=== PATIENT | female | born 1935 | race Caucasian/White ===

== ENCOUNTER → 2017-02-03 | Outpatient (CLI) | payer MEDICARE ==
[~2017-02-03] MED LIST: ASP81CT PO; Amlodipine Besylate PO; Atorvastatin Calcium PO; CEPH500C PO; CHOL100061 PO; FRS325T PO; GLIM2TAB PO; LACT20SO2 PO; LISI1TAB8 PO; MAGN250T7 PO; METF-472 PO; METF500T8 PO; METO25TA2 PO; MTF500T PO; MULT-974 PO; PHEN100T26 PO; PROP80CA4 PO; SENN1TAB66 PO; [UNRECOGNIZED DRUG - OTHER] PO; [UNRECOGNIZED DRUG - REMARK] PO; lisinopril PO
--- NOTE | 2017-02-05 10:10 | ECHOCARDIOGRAPHY REPORT ---
DATE OF SERVICE: 02/03/2017 PROCEDURE: Two-dimensional echocardiogram. INDICATIONS: Coronary artery disease, hypertension. REFERRING PHYSICIAN: Dr. Norton. MEASUREMENTS: LVID end diastolic 5.2. IVS thickness 0.9. LVPW thickness 0.9. Left atrial diameter 4.5. Ejection fraction 45-50%. FINDINGS: 1. Technical quality is good. 2. The left ventricle is prominent with mild diffuse left ventricle hypokinesia. Systolic function is reduced. Estimated ejection fraction 45-50%. 3. The left atrium is dilated. No clot or thrombus were seen. 4. The right atrium is normal in size. The right ventricle is normal in size. No clot or thrombus were seen within the right side. 5. The mitral valve evaluation showed mitral annular calcification with severe mitral regurgitation noted by color Doppler flow. No mitral valve prolapse. Significant deterioration compared to the previous study of 06/2016. 6. The aortic valve is heavily calcified. Doppler across the aortic valve estimated the peak gradient of 14 mmHg. Mean gradient of 6 mmHg. Calculated valve area of 1.3 sq cm which did not change significant compared to the study of 06/2016. 7. The tricuspid valve is normal in morphology with mild tricuspid regurgitation noted by color Doppler flow. Doppler across tricuspid valve estimated pulmonary artery pressure of 48 plus right atrial pressure. 8. The pulmonic valve is functioning normally with mild pulmonary regurgitation. 9. No pericardial effusion. CONCLUSION: 1. Normal left ventricular size with mild diffuse left ventricle hypokinesia. Estimated ejection fraction of 45-50%. 2. Severe mitral regurgitation, significant deterioration compared to study of 06/2016. 3. Moderate aortic valve stenosis. Calcified aortic valve. 4. Moderate tricuspid regurgitation. 5. Severe pulmonary hypertension with estimated pulmonary artery pressure of 55-60 mmHg, significant deterioration compared the study of 06/2016. 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
== END ==
LOC: CARD 07:31
PROVIDERS: ATTEND Physician Assistant
DX: I25.10 Atherosclerotic heart disease of native coronary artery without angina pectoris (principal); E11.9 Type 2 diabetes mellitus without complications; I10 Essential (primary) hypertension; I70.1 Atherosclerosis of renal artery; R09.89 Other specified symptoms and signs involving the circulatory and respiratory systems
CPT/HCPCS: 93306

== ENCOUNTER 2017-04-22 11:18 | Inpatient (IN) | payer MEDICARE ==
[~2017-04-22] VITALS: Ht 165.1 cm; Wt 67.4 kg
[2017-04-22] VITALS (8 sets, daily range): BP systolic 117–174; BP diastolic 81–113
[2017-04-22] MEDS ORDERED: ASPIRIN 81 MG CHEW (CHILDREN'S ASA) PO ONE (11:30)
[2017-04-22 11:53] LABS: BASOPHILS % (AUTO) 0 % (0-10); EOSINOPHILS # (AUTO) 0.1 10^3/uL (0.0-0.3); EOSINOPHILS % (AUTO) 2 % (0-10); LYMPHOCYTES # (AUTO) 2.1 X 10^3 (1.0-4.0); LYMPHOCYTES % (AUTO) 27 % (12-44); MEAN CORPUSCULAR HEMOGLOBIN 30 PG (25-34); MEAN CORPUSCULAR HGB CONC 33 G/DL (32-36); MEAN CORPUSCULAR VOLUME 92 FL (80-99); MEAN PLATELET VOLUME 11.8 FL (7.4-10.4); MONOCYTES # (AUTO) 0.6 X 10^3 (0.0-1.0); MONOCYTES % (AUTO) 7 % (0-12); NEUTROPHILS # (AUTO) 5.1 X 10^3 (1.8-7.8); NEUTROPHILS % (AUTO) 64 % (42-75); PLATELET COUNT 181 10^3/uL (130-400); RED BLOOD COUNT 4.29 10^6/uL (4.35-5.85); RED CELL DISTRIBUTION WIDTH 13.3 % (10.0-14.5); WHITE BLOOD COUNT 7.9 10^3/uL (4.3-11.0)
--- NOTE | 2017-04-22 11:57 | ED Dyspnea ---
General Stated Complaint: SOB,DIZZINESS Source of Information: Patient, Family ([facility] AND [id number]) History of Present Illness Time Seen by Provider: 11:20 Initial Comments PT ARRIVES VIA POV FROM HOME C/O ONGOING SHORTNESS OF BREATH FOR OVER A MONTH, PROGRESSIVELY GETTING WORSE NO CHEST PAIN OR PAIN WITH BREATHING--THEN LATER STATES HER CHEST FEELS TIGHT- LIKE HER BRA IS TOO TIGHT + ORTHOPNEA HAS SOME SWELLING IN LEGS/ FEET--CHRONIC PROBLEM--STATES THEY USED TO BE ALOT WORSE NO CALF PAIN NO PALPITATIONS NO SWEATS NO NAUSEA/VOMITING HAS HAD MILD DIZZINESS NO FEVER NO COUGH OR URI SYMPTOMS C/O DIZZINESS SYMPTOMS ARE NO DIFFERENT TODAY HAS NOT SOUGHT CARE UNTIL TODAY PT DID FLY TO [place] AND WAS THERE FOR 30 DAYS, BEGAN SHORTNESS OF BREATH SOMETIME AFTER ARRIVING THERE. PT RETURNED / FLEW BACK HOME 04/11/17 PT WITH HISTORY OF CAD AND HAD 4 VESSEL CABG IN 2013 FAMILY REPORT THAT SHE HAD SIMILAR SYMPTOMS PRIOR TO CABG PT WITH LONG HISTORY OF NON-COMPLIANCE WITH MEDICATIONS PT IS ALSO DIABETIC AND NEVER CHECKS HER BLOOD SUGAR, AND ONLY TAKES METFORMIN IF SHE EATS SOMETHING SWEET, AND THEN DOES NOT ALWAYS TAKE IT EVEN THEN PT IS SUPPOSED TO TAKE ASPIRIN, HEART MEDICATIONS AND OTHER MEDICATIONS, BUT SHE MOST OFTEN DOES NOT TAKE THEM PCP: DR. DENG STEAM TABLE ASSOCIATE: DR. LATHAM Allergies and Home Medications Allergies Coded Allergies: No Known Drug Allergies (Unverified , 04/15/13) Home Medications Aspirin 81 Mg Chew, 81 MG PO DAILY, #30 Prescribed by: JAZZY LOBATO on 12/05/14 1131 Cholecalciferol (Vitamin D3) 1,000 Unit Tablet, 1,000 UNIT PO DAILY, (Reported) Ferrous Sulfate 325 Mg Tab, 325 MG PO BID WITH MEALS, #60 Prescribed by: JAZZY LOBATO on 12/05/14 1131 Glimepiride 2 Mg Tablet, 2 MG PO DAILY, (Reported) Magnesium Oxide 250 Mg Tablet, 250 MG PO DAILY, (Reported) Metformin Hcl 500 Mg Tab.sr.24h, 500 MG PO BID, (Reported) Metoprolol Tartrate 25 Mg Tablet, 25 MG PO BID, #60 Prescribed by: JAZZY LOBATO on 12/05/14 1131 Multivitamin 1 Each Tablet, 1 TAB PO DAILY, (Reported) Sennosides/Docusate Sodium 1 Each Tablet, 5 TAB PO HS, (Reported) [Amlodipine Besylate] 5 MG TAB, 5 MG PO DAILY, #30 Prescribed by: JAZZY LOBATO on 12/05/14 1131 [Atorvastatin Calcium] 20 MG TABLET, 40 MG PO HS, #30 Prescribed by: JAZZY LOBATO on 12/05/14 1131 Constitutional: see HPI, dizziness, No fever EENTM: no symptoms reported Respiratory: see HPI, dyspnea on exertion, orthopnea, short of breath, No wheezing Cardiovascular: see HPI, chest pain, edema, No palpitations, No syncope, vascular heart diseas Gastrointestinal: no symptoms reported, No abdominal pain, No nausea, No vomiting Genitourinary: no symptoms reported Musculoskeletal: no symptoms reported Skin: no symptoms reported Psychiatric/Neurological: Anxiety Endocrine: No Symptoms Reported Hematologic/Lymphatic: No Symptoms Reported Past Luzjeme-Reehzw-Seuhft Hx Immunizations Up To Date Tetanus Booster (TDap): Unknown Date of Pneumonia Vaccine: Sep 04, 2013 Date of Influenza Vaccine: Nov 17, 2014 Surgeries HX Surgeries: Yes (ankle surgery; colonoscopy in 2009, CARDIAC CATH WITH 4 VESSEL CABG 2013; CATARACTS) Surgeries: Cardiac, CABG, Eye Surgery, Hysterectomy, Orthopedic, Tonsillectomy Respiratory Hx Respiratory Disorders: Yes Respiratory Disorders: Pneumonia Cardiovascular Hx Cardiac Disorders: Yes (RENAL ARTERY STENOSIS, CAROTID BRUIT; 4 VESSEL CABG. 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 Genitourinary Hx Genitourinary Disorders: Yes (Renal stent) Genitourinary Disorders: UTI-Chronic Gastrointestinal Hx Gastrointestinal Disorders: Yes Gastrointestinal Disorders: Gastroesophageal Reflux, Chronic Constipation Musculoskeletal Hx Musculoskeletal Disorders: No Endocrine Hx Endocrine Disorders: Yes (NON-COMPLIANT WITH MEDICATIONS AND NEVER CHECKS BLOOD GLUCOSE) Endocrine Disorders: Diabetes, Non-Insulin dep HEENT HX ENT Disorders: Yes (Cataract surgery ) HEENT Disorders: Cataract Cancer Hx Cancer: No Psychosocial Hx Psychiatric Problems: Yes Behavioral Health Disorders: Anxiety Integumentary HX Skin/Integumentary Disorder: No Blood Transfusions Hx Blood Disorders: No Family Medical History Family Medial History: Colon cancer 19 FATHER G8 BROTHER Diabetes mellitus 19 FATHER Hypertension 19 MOTHER Myocardial infarction 19 MOTHER Physical Exam Vital Signs Vital Sign - Last 12Hours 04/22/17 04/22/17 12:06 15:40 Temp 98.1 Pulse 102 Resp 20 B/P (MAP) 168/113 Pulse Ox 98 O2 Delivery Room Air Capillary Refill : General Appearance: No Apparent Distress, WD/WN, 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, 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) HEENT: PERRL/EOMI Neck: Full Range of Motion, Non Tender, Supple, Carotid Bruit (ON RIGHT), JVD ( MILD) Respiratory: Normal Breath Sounds, No Accessory Muscle Use, No Respiratory Distress Cardiovascular: Normal Peripheral Pulses, Systolic Murmur (3/6), Irregularly Irregular Gastrointestinal: Normal Bowel Sounds, No Organomegaly, No Pulsatile Mass, Non Tender, Soft Extremity: Normal Capillary Refill, Non Tender, No Calf Tenderness, Pedal Edema (1+ BILATERALLY) Neurologic/Psychiatric: Alert, Oriented x3 (MILD MEMORY IMPAIRMENT), No Motor/ Sensory Deficits, Normal Mood/Affect, 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 Norm as Tested Skin: Normal Color, Warm/Dry Progress/Results/Core Measures Results/Orders Lab Results Laboratory Tests Test 04/22/17 11:40 04/22/17 12:55 Range/Units White Blood Count 7.9 4.3-11.0 10^3/uL Red Blood Count 4.29 L 4.35-5.85 10^6/uL Hemoglobin 13.0 11.5-16.0 G/DL Hematocrit 39 35-52 % Mean Corpuscular Volume 92 80-99 FL Mean Corpuscular Hemoglobin 30 25-34 PG Mean Corpuscular Hemoglobin Concent 33 32-36 G/DL Red Cell Distribution Width 13.3 10.0-14.5 % Platelet Count 181 130-400 10^3/uL Mean Platelet Volume 11.8 H 7.4-10.4 FL Neutrophils (%) (Auto) 64 42-75 % Lymphocytes (%) (Auto) 27 12-44 % Monocytes (%) (Auto) 7 0-12 % Eosinophils (%) (Auto) 2 0-10 % Basophils (%) (Auto) 0 0-10 % Neutrophils # (Auto) 5.1 1.8-7.8 X 10^3 Lymphocytes # (Auto) 2.1 1.0-4.0 X 10^3 Monocytes # (Auto) 0.6 0.0-1.0 X 10^3 Eosinophils # (Auto) 0.1 0.0-0.3 10^3/uL Basophils # (Auto) 0.0 0.0-0.1 10^3/uL Prothrombin Time 13.9 12.2-14.7 SEC INR Comment 1.1 0.8-1.4 Activated Partial Thromboplast Time 28 24-35 SEC Sodium Level 137 135-145 MMOL/L Potassium Level 4.5 3.6-5.0 MMOL/L Chloride Level 103 98-107 MMOL/L Carbon Dioxide Level 24 21-32 MMOL/L Anion Gap 10 5-14 MMOL/L Blood Urea Nitrogen 20 H 7-18 MG/DL Creatinine 1.19 0.60-1.30 MG/DL Estimat Glomerular Filtration Rate 43 BUN/Creatinine Ratio 17 Glucose Level 167 H 70-105 MG/DL Calcium Level 9.2 8.5-10.1 MG/DL Magnesium Level 1.9 1.8-2.4 MG/DL Total Bilirubin 0.9 0.1-1.0 MG/DL Aspartate Amino Transf (AST/SGOT) 91 H 5-34 U/L Alanine Aminotransferase (ALT/SGPT) 166 H 0-55 U/L Alkaline Phosphatase 85 40-136 U/L Total Creatine Kinase 70 29-168 U/L Creatine Kinase MB 2.2 <6.6 NG/ML Troponin I < 0.30 <0.30 NG/ML B-Type Natriuretic Peptide 1064.0 H <100.0 PG/ML Total Protein 6.6 6.4-8.2 GM/DL Albumin 3.9 3.2-4.5 GM/DL Amylase Level 37 25-125 U/L Lipase 27 8-78 U/L TSH [place] Testing 2.17 0.35-4.94 UIU/ML My Orders Orders - ALBA HERNANDEZ DO Amylase (04/22/17 11:30) Cbc With Automated Diff (04/22/17 11:30) Comprehensive Metabolic Panel (04/22/17 11:30) Creatine Kinase (04/22/17 11:30) Creatine Kinase Mb (04/22/17 11:30) Lipase (04/22/17 11:30) Partial Thromboplastin Time (04/22/17 11:30) Protime With Inr (04/22/17 11:30) Troponin I (04/22/17 11:30) Chest 1 View, Ap/Pa Only (04/22/17 11:30) O2 (04/22/17 11:30) Ekg Tracing (04/22/17 11:30) Aspirin Chewable Tablet (Baby Aspirin Ch (04/22/17 11:30) BNP (04/22/17 11:30) Monitor-Rhythm Ecg Trace Only (04/22/17 11:30) Magnesium (04/22/17 11:30) Nitroglycerin Ointment (Nitrobid Ointme (04/22/17 12:00) Enoxaparin Injection (Lovenox Injection) (04/22/17 12:15) Thyroid Analyzer (04/22/17 12:29) Ct Angio Chest W (04/22/17 13:50) Saline Lock/Iv-Start (04/22/17 13:50) Ns Iv 1000 Ml (Sodium Chloride 0.9%) (04/22/17 13:50) Nitroglycerin Ointment (Nitrobid Ointme (04/22/17 14:00) Diltiazem Injection (Cardizem Injection) (04/22/17 14:00) Iohexol Injection (Omnipaque 350 Mg/Ml 1 (04/22/17 14:15) Ns (Ivpb) (Sodium Chloride 0.9% Ivpb Bag (04/22/17 14:15) Ekg Tracing (04/22/17 14:54) Ekg Tracing (04/22/17 14:54) Ns Iv 1000 Ml (Sodium Chloride 0.9%) (04/22/17 14:52) Furosemide Injection (Lasix Injection) (04/22/17 15:45) Catheter(Urinary) Insert & Ass 03,15 (04/22/17 15:32) Echo W Doppler/Color Flow (04/22/17 15:48) Medications Given in ED Current Medications Medications Dose Ordered Sig/Mony Route Start Time Stop Time Status Last Admin Dose Admin Aspirin 324 mg ONCE ONCE PO 04/22/17 11:30 04/22/17 11:49 DC 04/22/17 11:55 324 MG Diltiazem HCl 10 mg ONCE ONCE IVP 04/22/17 14:00 04/22/17 14:01 DC 04/22/17 14:22 10 MG Enoxaparin Sodium 80 mg ONCE ONCE SC 04/22/17 12:15 04/22/17 12:16 DC 04/22/17 12:24 80 MG Furosemide 80 mg ONCE ONCE IVP 04/22/17 15:45 04/22/17 15:46 DC 04/22/17 15:49 80 MG Iohexol 100 ml ONCE ONCE IV 04/22/17 14:15 04/22/17 14:16 DC 04/22/17 14:31 100 ML Nitroglycerin 0.5 inch ONCE ONCE TOP 04/22/17 14:00 04/22/17 14:01 DC 04/22/17 14:20 0.5 INCH Nitroglycerin 1 inch ONCE ONCE TOP 04/22/17 12:00 04/22/17 12:13 DC 04/22/17 12:24 0.5 INCH Sodium Chloride 100 ml ONCE ONCE IV 04/22/17 14:15 04/22/17 14:16 DC 04/22/17 14:31 80 ML Sodium Chloride 1,000 ml @ [facility] ONCE .ROUTE 04/22/17 14:52 04/22/17 14:58 DC 04/22/17 14:55 1,000 MLS/HR Vital Signs/I&O Vital Sign - Last 12Hours 04/22/17 04/22/17 12:06 15:40 Temp 98.1 97.4 Pulse 102 78 Resp 20 16 B/P (MAP) 168/113 117/113 Pulse Ox 98 97 O2 Delivery Room Air Progress Note : Progress Note PT STATES SHE FEELS BETTER, LESS SHORT OF BREATH AND CHEST NO LONGER FEELS TIGHT WITH MEDICATIONS AND O2 UNEVENTFUL ER STAY BP DOWN WITH MEDICATIONS ECG Initial ECG Impression Time: 11:46 Initial ECG Rate: 101 Initial ECG Rhythm: A Fib/Flutter (WITH OCC PVC) Initial ECG Comparisson: Changed (FORM NSR 03/12/15) EKG : EKG Time: 14:46 Rate: 62 Rhythm: MACHINE READ NSR, BUT ONLY A COUPLE OF QUESTIONABLE VERY SMALL P- WAVES, MOSTLY NO DISCERNABLE P-WAVES ON MY INTERPRETATION, WITH PVC'S Comment EKG #3 AT 1448--RATE 69, AFIB WITH PVC'S AND PAC'S Diagnostic Imaging Comments CXR--STABLE CARDIOMEGALY, PATCHY RIGHT BASILAR OPACITIES, FAVOR ATELECTASIS-- PER RADIOLOGIST REPORT @ 1303 CT CHEST ANGIOGRAM--NO P.E. FINDINGS CONSISTENT WITH CARDIOGENIC INTERSTITIAL PULMONARY EDEMA--PER RADIOLOGIST REPORT @ 1532 Reviewed: Reviewed by Me Departure Communication Progress Notes SPOKE WITH DR. DENG, ACCEPTS PT FOR ADMIT SPOKE WITH DR. JAMES FOR CARDIOLOGY CONSULT. ORDERS NOTED Impression Impression: Primary Impression: Chest pain Additional Impressions: Dyspnea New onset atrial fibrillation HTN (hypertension) Heart murmur HX OF CAD WITH CABG Non-compliance CHF (congestive heart failure) Disposition: ADMITTED INPATIENT Condition: Improved Decision to Admit Reason: Admit from ER (General) Decision to Admit/Date: Apr 22, 2017 Time/Decision to Admit Time: 15:35 Departure-Patient Inst. Referrals: MI DENG DO (PCP/Family) Primary Care Physician ALBA HERNANDEZ DO Apr 22, 2017 11:57
[2017-04-22] MEDS ORDERED: NITROGLYCERIN 2% OINT 1 GM UNIT DOSE PACKET TOP ONE ×2 (12:00→14:00)
[2017-04-22] MEDS ORDERED: ENOXAPARIN 80 MG/0.8 ML (LOVENOX) SYR SC ONE (12:15)
--- NOTE | 2017-04-22 13:00 | Diagnostic Imaging Report ---
INDICATION: Shortness of breath and dizziness. COMPARISON: 12/01/2014. FINDINGS: Stable cardiomegaly. Central vascular redistribution. Right basilar linear opacities favor atelectasis. Visible lungs are otherwise clear. Please note posterior lower lobes are poorly evaluated by portable radiography. No pneumothorax or pleural effusion. IMPRESSION: 1. Stable cardiomegaly without kali pulmonary edema. 2. Patchy right basilar linear opacities favor subsegmental atelectasis. Dictated by: Dictated on workstation # [id number]
[2017-04-22 13:14] LABS: INR 1.1 (0.8-1.4); PROTHROMBIN TIME PATIENT 13.9 SEC (12.2-14.7)
[2017-04-22 13:27] LABS: ALANINE AMINOTRANSFERASE 166 U/L (0-55); ALBUMIN 3.9 GM/DL (3.2-4.5); AMYLASE 37 U/L (25-125); ANION GAP 10 MMOL/L (5-14); ASPARTATE AMINO TRANSFERASE 91 U/L (5-34); BILIRUBIN,TOTAL 0.9 MG/DL (0.1-1.0); BLOOD UREA NITROGEN 20 MG/DL (7-18); BUN/CREATININE RATIO 17; CALCIUM 9.2 MG/DL (8.5-10.1); CARBON DIOXIDE 24 MMOL/L (21-32); CHLORIDE 103 MMOL/L (98-107); CREATINE KINASE 70 U/L (29-168); CREATININE SERUM 1.19 MG/DL (0.60-1.30); GFR ESTIMATED 43; GLUCOSE 167 MG/DL (70-105); LIPASE 27 U/L (8-78); MAGNESIUM 1.9 MG/DL (1.8-2.4); POTASSIUM 4.5 MMOL/L (3.6-5.0); SODIUM 137 MMOL/L (135-145); TOTAL PROTEIN 6.6 GM/DL (6.4-8.2)
[2017-04-22 13:46] LABS: TROPONIN I < 0.30 NG/ML (<0.30)
[2017-04-22] MEDS ORDERED: NS IV 1000 ML 1,000 ML IV ONE (13:50)
[2017-04-22] MEDS ORDERED: DILTIAZEM 25 MG/5 ML INJ (CARDIZEM) VIAL IVP ONE (14:00)
[2017-04-22] MEDS ORDERED: NS 100 ML (IVPB) BAG IV ONE (14:15)
[2017-04-22] MEDS ORDERED: IOHEXOL 350 MG/ML 100 ML (OMNIPAQUE 350) VIAL IV ONE (14:15)
[2017-04-22] MEDS ORDERED: NS IV 1000 ML 1,000 ML ONE (14:52)
--- NOTE | 2017-04-22 15:20 | Diagnostic Imaging Report ---
PROCEDURE: CT angiography of the chest with contrast. TECHNIQUE: Multiple contiguous axial images were obtained through the chest after uneventful bolus administration of intravenous contrast. Reconstructed CTA MIP acquisitions were also performed. INDICATION: Shortness of breath. Lightheadedness. Chest tightness. CONTRAST: 100 mL of Omnipaque 350 was administered intravenously. FINDINGS: There is good opacification of the pulmonary arteries with no filling defects to suggest pulmonary embolism. There is a dilated right atrium and, to a lesser extent, there is also dilatation of the other cardiac chambers. This is suggestive of heart failure. There is septal thickening, a small amount of fluid along the fissures, and bilateral small pleural effusions without significant consolidation. This is compatible with interstitial pulmonary edema. The thoracic aorta is normal in caliber. No mediastinal mass. There is no mediastinal or hilar lymphadenopathy. No axillary lymphadenopathy. No pericardial effusion. Post CABG changes are seen with a healed sternotomy. Sternotomy wires are still in place. Sections in the upper abdomen demonstrate a small ventral hernia in the subxiphoid region containing omental fat and a small portion of an adjacent transverse colon loop. The osseous structures demonstrate minimal scoliosis and degenerative changes. IMPRESSION: Findings are compatible with cardiogenic interstitial pulmonary edema. Dictated by: Dictated on workstation # [id number]
[2017-04-22] MEDS ORDERED: FUROSEMIDE 40 MG/4 ML INJ (LASIX) IVP ONE (15:45)
[2017-04-22] MEDS ORDERED: CATHETER FLUSH 10 ML SYR IV PRN (17:00)
[2017-04-22] MEDS ORDERED: morphine INJ 4 MG/ML 1 ML (VIAL/SYRINGE) IV PRN (17:00)
[2017-04-22] MEDS ORDERED: NITROGLYCERIN SUBLINGUAL 0.4 MG TAB (NITROSTAT) SL PRN (17:00)
[2017-04-22] MEDS ORDERED: amLODIPine 5 MG (NORVASC) TAB PO ONE (18:15)
--- NOTE | 2017-04-22 18:42 | History & Physicial ---
History of Present Illness History of Present Illness Reason for visit/HPI This is an 82 year old female with a known history of CAD with CABG who was brought to the emergency room by her family due to dyspnea on exertion. The patient had been visiting a friend in [place] during the month of March and states that when she came back on the plane the first part of April, she noted that she was short of air and dizzy but thought it was due to the altitude and poor airflow in the airplane cabin. However, she has continued to have fatigue , dizziness especially when standing up from a sitting position and shortness of air with very little exertion. She was found to be in atrial fibrillation as well on congestive heart failure in the emergency room She was given IV lasix and well as IV cardizem and it was decided to admit her to cardiac stepdown with cardiology consult. Date of Admission Apr 22, 2017 at 16:05 Date Seen by Provider: Apr 22, 2017 Time Seen by Provider: 18:42 I consulted on this patient on 04/22/17 18:37 Attending Physician Meri Deng DO Admitting Physician Meri Deng DO Consult Allergies and Home Medications Allergies Coded Allergies: No Known Drug Allergies (Unverified , 04/15/13) Home Medications Aspirin 81 Mg Chew, 81 MG PO DAILY, #30 Prescribed by: JAZZY LOBATO on 12/05/14 1131 Cholecalciferol (Vitamin D3) 1,000 Unit Tablet, 1,000 UNIT PO DAILY, (Reported) Ferrous Sulfate 325 Mg Tab, 325 MG PO BID WITH MEALS, #60 Prescribed by: JAZZY LOBATO on 12/05/14 1131 Glimepiride 2 Mg Tablet, 2 MG PO DAILY, (Reported) Magnesium Oxide 250 Mg Tablet, 250 MG PO DAILY, (Reported) Metformin Hcl 500 Mg Tab.sr.24h, 500 MG PO BID, (Reported) Metoprolol Tartrate 25 Mg Tablet, 25 MG PO BID, #60 Prescribed by: JAZZY LOBATO on 12/05/14 1131 Multivitamin 1 Each Tablet, 1 TAB PO DAILY, (Reported) Sennosides/Docusate Sodium 1 Each Tablet, 5 TAB PO HS, (Reported) [Amlodipine Besylate] 5 MG TAB, 5 MG PO DAILY, #30 Prescribed by: JAZZY LOBATO on 12/05/14 1131 [Atorvastatin Calcium] 20 MG TABLET, 40 MG PO HS, #30 Prescribed by: JAZZY LOBATO on 12/05/14 1131 Past Talln[place]-Gdjdax-Ojeyap Hx Patient Social History Alcohol Use: Denies Use Recreational Drug Use: No Smoking Status: Never a Smoker 2nd Hand Smoke Exposure: No Recent Foreign Travel: No Contact w/other who traveled: No Recent Infectious Disease Expo: No Immunizations Up To Date Tetanus Booster (TDap): Unknown Date of Pneumonia Vaccine: Sep 04, 2013 Date of Influenza Vaccine: Nov 17, 2014 Surgeries HX Surgeries: Yes (ankle surgery; colonoscopy in 2009, CARDIAC CATH WITH 4 VESSEL CABG 2013; CATARACTS) Surgeries: Cardiac, CABG, Eye Surgery, Hysterectomy, Orthopedic, Tonsillectomy Respiratory Hx Respiratory Disorders: Yes Cardiovascular Hx Cardiovascular Disorders: Yes (RENAL ARTERY STENOSIS, CAROTID BRUIT; 4 VESSEL CABG. 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 Genitourinary Hx Genitourinary Disorders: Yes (Renal stent) Genitourinary Disorders: UTI-Chronic Gastrointestinal Hx Gastrointestinal Disorders: Yes Gastrointestinal Disorders: Gastroesophageal Reflux, Chronic Constipation Musculoskeletal Hx Musculoskeletal Disorders: No Musculoskeletal Disorders: Arthritis Endocrine Hx Endocrine Disorders: Yes (NON-COMPLIANT WITH MEDICATIONS AND NEVER CHECKS BLOOD GLUCOSE) Endocrine Disorders: Diabetes, Non-Insulin dep HEENT HX ENT Disorders: Yes (Cataract surgery ) HEENT Disorders: Cataract Cancer Hx Cancer: No Psychosocial Hx Psychiatric Problems: Yes Behavioral Health Disorders: Anxiety Integumentary HX Skin/Integumentary Disorder: No Blood Transfusions Hx Blood Disorders: No Family Medical History Family Hx: Colon cancer 19 FATHER G8 BROTHER Diabetes mellitus 19 FATHER Hypertension 19 MOTHER Myocardial infarction 19 MOTHER Constitutional: dizziness, weakness EENTM: No blurred vision, No dental problems, No double vision, No ear discharge, No ear pain, No epistaxis, No eye pain, No hearing loss, No hoarseness, No mouth pain, No mouth swelling, No no symptoms reported, No nose congestion, No nose pain, No other, No see HPI, No tearing, No throat pain, No throat swelling, No vision loss Respiratory: dyspnea on exertion, short of breath Cardiovascular: edema Gastrointestinal: No RUQ, No LUQ, No RLQ, No LLQ, No no symptoms reported, No see HPI, No abdominal pain, No constipation, No diarrhea, No dysphagia, No hematemesis, No heartburn, No jaundice, No loss of appetite, No melena, No nausea, No vomiting, No other Genitourinary: No no symptoms reported, No see HPI, No decreased output, No discharge, No dysuria, No frequency, No hematuria, No hesitancy, No incontinence , No nocturia, No pain, No other Musculoskeletal: No no symptoms reported, No see HPI, No back pain, No gout, No joint pain, No joint swelling, No muscle pain, No muscle stiffness, No muscle cramps, No muscle twitching, No muscle weakness, No neck pain, No other Skin: No no symptoms reported, No see HPI, No change in color, No change in hair/nails, No dryness, No hx of skin cancer, No lesions, No lumps, No pruritus , No rash, No other Psychiatric/Neurological: Weakness Physical Exam Vital Signs Vital Sign - Last 12Hours 04/22/17 12:06 Temp 98.1 Pulse 102 Resp 20 B/P (MAP) 168/113 Pulse Ox 98 Capillary Refill : Less Than 3 Seconds General Appearance: No Apparent Distress Neck: Supple Respiratory: Lungs Clear Cardiovascular: Systolic Murmur, Gallop/S4, Irregularly Irregular Gastrointestinal: Normal Bowel Sounds, Non Tender, Soft Rectal: Deferred Back: No CVA Tenderness Extremity: Non Tender, No Calf Tenderness, Pedal Edema (nonpitting) Neurologic/Psychiatric: Alert, Oriented x3, Motor Weakness (diffuse) Skin: Normal Color, Warm/Dry Comments Laboratory Tests 04/22/17 11:40: White Blood Count 7.9, Red Blood Count 4.29L, Hemoglobin 13.0, Hematocrit 39, Mean Corpuscular Volume 92, Mean Corpuscular Hemoglobin 30, Mean Corpuscular Hemoglobin Concent 33, Red Cell Distribution Width 13.3, Platelet Count 181, Mean Platelet Volume 11.8H, Neutrophils (%) (Auto) 64, Lymphocytes (%) (Auto) 27 , Monocytes (%) (Auto) 7, Eosinophils (%) (Auto) 2, Basophils (%) (Auto) 0, Neutrophils # (Auto) 5.1, Lymphocytes # (Auto) 2.1, Monocytes # (Auto) 0.6, Eosinophils # (Auto) 0.1, Basophils # (Auto) 0.0 04/22/17 12:55: Prothrombin Time 13.9, INR Comment 1.1, Activated Partial Thromboplast Time 28, Sodium Level 137, Potassium Level 4.5, Chloride Level 103, Carbon Dioxide Level 24, Anion Gap 10, Blood Urea Nitrogen 20H, Creatinine 1.19, Estimat Glomerular Filtration Rate 43, BUN/Creatinine Ratio 17, Glucose Level 167H, Calcium Level 9.2, Magnesium Level 1.9, Total Bilirubin 0.9, Aspartate Amino Transf (AST/SGOT ) 91H, Alanine Aminotransferase (ALT/SGPT) 166H, Alkaline Phosphatase 85, Total Creatine Kinase 70, Creatine Kinase MB 2.2, Troponin I < 0.30, B-Type Natriuretic Peptide 1064.0H, Total Protein 6.6, Albumin 3.9, Amylase Level 37, Lipase 27, TSH [place] Testing 2.17 Assessment/Plan Assessment and Plan 1. New onset atrial fibrillation with rate controlled--admit and give IV lovenox and consult cardiology 2. Hypertensive Urgency--resume amlodopine, give diovan now and apresoline prn 3. Acute on Chronic Systolic Congestive Heart Failure--IV lasix for diuresis 4. Severe Mitral Regurgitation on last ECHO 5. Diabetes mellitus--start accuchecks with SSI 6. History of noncompliance with medications 7. History of CAD with CABG Problems: MERI DENG DO Apr 22, 2017 18:42
[2017-04-22] MEDS ORDERED: ACETAMINOPHEN 325 MG TABLET/CAPLET (TYLENOL) PO PRN (18:45)
[2017-04-22] MEDS ORDERED: hydrALAZINE (APESOLINE) 20 MG/ML VIAL IV PRN (18:45)
[2017-04-22] MEDS ORDERED: VALSARTAN 80 MG (DIOVAN) TAB PO NR (18:45)
[2017-04-22] MEDS: NITROGLYCERIN 2% OINT 1 GM UNIT DOSE PACKET TOP SCH (20:04)
[2017-04-22] MEDS: inSUlin (REGULAR) HUMAN 1 UNIT/0.01 ML (CHARGE PER UNIT) SC SCH (20:56)
[2017-04-22] MEDS: CATHETER FLUSH 10 ML SYR IV SCH (21:29)
[2017-04-23] VITALS (7 sets, daily range): BP systolic 141–158; BP diastolic 68–94
[2017-04-23] MEDS ORDERED: ENOXAPARIN 80 MG/0.8 ML (LOVENOX) SYR SC SCH
[2017-04-23] MEDS: NITROGLYCERIN 2% OINT 1 GM UNIT DOSE PACKET TOP SCH ×4 (02:08→21:40)
[2017-04-23 04:40] LABS: BASOPHILS % (AUTO) 0 % (0-10); EOSINOPHILS # (AUTO) 0.2 10^3/uL (0.0-0.3); EOSINOPHILS % (AUTO) 2 % (0-10); LYMPHOCYTES # (AUTO) 3.2 X 10^3 (1.0-4.0); LYMPHOCYTES % (AUTO) 33 % (12-44); MEAN CORPUSCULAR HEMOGLOBIN 30 PG (25-34); MEAN CORPUSCULAR HGB CONC 34 G/DL (32-36); MEAN CORPUSCULAR VOLUME 90 FL (80-99); MEAN PLATELET VOLUME 12.1 FL (7.4-10.4); MONOCYTES # (AUTO) 0.7 X 10^3 (0.0-1.0); MONOCYTES % (AUTO) 7 % (0-12); NEUTROPHILS # (AUTO) 5.5 X 10^3 (1.8-7.8); NEUTROPHILS % (AUTO) 57 % (42-75); PLATELET COUNT 207 10^3/uL (130-400); RED BLOOD COUNT 4.03 10^6/uL (4.35-5.85); WHITE BLOOD COUNT 9.7 10^3/uL (4.3-11.0)
[2017-04-23 05:01] LABS: CALCIUM 9.4 MG/DL (8.5-10.1); CREATININE SERUM 0.98 MG/DL (0.60-1.30); POTASSIUM 3.5 MMOL/L (3.6-5.0); TOTAL PROTEIN 6.9 GM/DL (6.4-8.2)
[2017-04-23] MEDS: inSUlin (REGULAR) HUMAN 1 UNIT/0.01 ML (CHARGE PER UNIT) SC SCH ×4 (06:00→21:29)
[2017-04-23] MEDS: CATHETER FLUSH 10 ML SYR IV SCH ×3 (06:07→21:40)
--- NOTE | 2017-04-23 06:30 | Diagnostic Imaging Report ---
INDICATION: Chest pain. COMPARISON: 04/22/2017. FINDINGS: Stable cardiomegaly with changes of CABG. Minimal interstitial opacity, along the right minor fissure unchanged. No confluent airspace consolidations. No pleural effusion or pneumothorax. Tortuous aorta is again noted. IMPRESSION: 1. Stable cardiomegaly without kali pulmonary edema or pleural effusions. No adverse development. Dictated by: Dictated on workstation # [id number]
[2017-04-23] MEDS: ASPIRIN E.C. 325 MG (ECOTRIN) TABLET PO SCH (08:17)
[2017-04-23] MEDS: amLODIPine 5 MG (NORVASC) TAB PO SCH (08:18)
[2017-04-23] MEDS ORDERED: ASPI-999 PO (08:24)
[2017-04-23] MEDS ORDERED: ATOR40TA70 PO (08:24)
[2017-04-23] MEDS ORDERED: POTA10TA10 PO (08:24)
[2017-04-23] MEDS ORDERED: PROP80CA4 PO (08:24)
[2017-04-23] MEDS ORDERED: FURO20TA4 PO (08:24)
[2017-04-23] MEDS ORDERED: FERR-65 PO (08:24)
[2017-04-23] MEDS ORDERED: LISI-552 PO (08:24)
[2017-04-23] MEDS ORDERED: AMLO5TAB2 PO (08:24)
[2017-04-23] MEDS ORDERED: BISA-65 PO (08:39)
--- NOTE | 2017-04-23 10:56 | Consultation-Cardiology ---
HPI-Cardiology Cardiology Consultation: Date of Consultation 04/23/17 Date of Admission Attending Physician Meri Norton DO Admitting Physician Meri Norton DO Consulting Physician Jose Juan BLACK MD HPI: Time Seen by Provider: 09:45 Chief Complaint: Shortness of breath This is a 82-year-old lady who presented with shortness of breath, dizziness which is likely postural and atypical chest pain. She has history of coronary artery disease, status post CABG 3 years ago. She denies any significant ankle swelling, weight gain. He denies any orthopnea or PND. However recently she's been having more shortness of breath and dizziness. Review of Systems-Cardiology Review of Systems Constitutional: No As described under HPI, No no symptoms reported, No chills, No fever, No lightheadedness, No malaise, No tiredness, No weight loss, No weight gain, No other Eyes: No As described under HPI, No no symptoms reported, No blindness, No blurred vision, No contact lenses, No drainage, No decreased acuity, No foreign body sensation, No glasses, No inflammation, No pain, No photophobia, No previous injury, No shadows, No tunnel vision, No other, No vision change Ears/Nose/Throat: No As described under HPI, No no symptoms reported, No chronic hearing loss, No epistaxis, No ear discharge, No ear pain, No loose teeth, No mouth pain, No mouth swelling, No nasal drainage, No nose pain, No recent hearing loss, No throat pain, No throat swelling, No ulcerations, No other Respiratory: shortness of breath Cardiovascular: chest pain, lightheadedness Gastrointestinal: No no symptoms reported, No As described under HPI, No abdomen distended, No abdominal pain, No blood streaked bowels, No constipation , No diarrhea, No difficulty swallowing, No nausea, No poor appetite, No poor fluid intake, No rectal bleeding, No vomiting, No other, No nausea/vomiting/ diarrhea, No stool coloration changes Genitourinary: No no symptoms reported, No As described under HPI, No burning, No dysuria, No discharge, No frequency, No flank pain, No hematuria, No incontinence, No pain, No urgency, No other, No urine frequency changes, No urine coloration changes Musculoskeletal: No no symptoms reported, No As describe under HPI, No back pain, No gout, No joint pain, No joint swelling, No muscle pain, No muscle stiffness, No neck pain, No other Skin: No no symptoms reported, No As described under HPI, No change in color, No change in hair/nails, No dryness, No lesions, No lumps, No rash, No other, No skin related problems, No ulcerations, No rash on exposed areas, No ulcerations on exposed areas Psychiatric/Neurological: No As described under HPI, No anxiety, No depression , No emotional problems, No focal weakness, No headache, No no symptoms reported , No numbness, No other, No pre-existing deficit, No seizure, No syncope, No tingling, No tremors, No weakness Hematologic: No no symptoms reported, No As described under HPI, No anemia, No blood clots, No easy bleeding, No easy bruising, No swollen glands, No other, No bleeding abnormalities [id number] Hx Patient Social History Alcohol Use: Denies Use Recreational Drug Use: No Smoking Status: Never a Smoker 2nd Hand Smoke Exposure: No Recent Foreign Travel: No Recent Infectious Disease Expo: No Hospitalization with Isolation: Denies Physical Abuse Screen: No Sexual Abuse: No Immunizations Up To Date Tetanus Booster (TDap): Unknown Date of Pneumonia Vaccine: Sep 04, 2013 Date of Influenza Vaccine: Nov 17, 2014 Past Medical History PMH As described under Assessment. Family Medical History Family History: Colon cancer 19 FATHER G8 BROTHER Diabetes mellitus 19 FATHER Hypertension 19 MOTHER Myocardial infarction 19 MOTHER Allergies and Home Medications Allergies Coded Allergies: No Known Drug Allergies (Unverified , 04/15/13) Home Medications Amlodipine Besylate 5 Mg Tablet, 5 MG PO DAILY, (Reported) Aspirin 81 Mg Tab.chew, 81 MG PO DAILY, (Reported) Atorvastatin Calcium 40 Mg Tablet, 40 MG PO HS, (Reported) Bisacodyl 5 Mg Tablet.dr, 15 MG PO Q72H, (Reported) Cholecalciferol (Vitamin D3) 1,000 Unit Tablet, 1,000 UNIT PO DAILY, (Reported) Ferrous Sulfate 325 Mg Tablet, 325 MG PO DAILY, (Reported) Furosemide 20 Mg Tablet, 20 MG PO DAILY, (Reported) Glimepiride 2 Mg Tablet, 2 MG PO DAILY, (Reported) Lisinopril 20 Mg Tablet, 20 MG PO DAILY, (Reported) Magnesium Oxide 250 Mg Tablet, 250 MG PO BID, (Reported) Metformin Hcl 500 Mg Tab.sr.24h, 500 MG PO BID WITH MEALS, (Reported) Multivitamin 1 Each Tablet, 1 TAB PO DAILY, (Reported) Potassium Chloride 10 Meq Tablet.er, 10 MEQ PO DAILY, (Reported) Propranolol HCl 80 Mg Cap.sa.24h, 80 MG PO DAILY, (Reported) Physical Exam-Cardiology Physical Exam Vital Signs/I&O Vital Sign - Last 12Hours 04/23/17 04/23/17 04/23/17 04:10 04:10 07:00 Temp 97.0 Pulse 62 76 Resp 18 B/P (MAP) 158/78 Pulse Ox 97 97 O2 Delivery Room Air Room Air Intake and Output 04/23/17 00:00 Intake Total 720 ml Output Total 1350 ml Balance -630 ml Capillary Refill : Less Than 3 Seconds Constitutional: No appears stated age, No AAO x 3, No apparent distress, No PERRL, No well-developed, No well-nourished, No other HEENT: No PERRL, No normal ENT inspection, No TMs normal, No pharynx normal, No scleral icterus (R), No scleral icterus (L), No pale conjunctivae (R), No pale conjunctivae (L), No photophobia, No TM abnormal (R), No TM abnormal (L), No pharyngeal erythema, No tonsillar exudate, No other, No discharge, No EOMI, No hearing is well preserved, No hard of hearing, No oral hygience is good, No ulceration, No xanthelasmas are seen Neck: No non-tender, No full range of motion, No supple, No normal inspection, No carotid bruit, No limited range of motion, No lymphadenopathy (R), No lymphadenopathy (L), No tender lateral, No tender midline, No thyromegaly, No other, No carotid pulses are 2 + bilaterally, No with good upstrokes Respiratory: No accessory muscle use, No respiratory distress, No chest tender , No chest expansion is symmetric, No chest is bilaterally symmetric, No lungs clear to percussion, No lungs clear to auscultation, No crackles, No rhonchi, No rales, No stridor, No wheezing, No pleural rub, No other Cardiovascular: irregularly irregular, S1 and S2 Gastrointestinal: No tender, No soft, No round, No distended, No pulsatile mass , No organomegaly, No guarding, No rebound, No tenderness, No hernia, No mass, No audible bowel sounds, No abnormal bowel sounds, No abdominal bruits, No spleenomegaly, No other Rectal: deferred Extremities: No clubbing, No cyanosis, No significant edema Neurologic/Psychiatric: alert, oriented x 3, power is 5/5 both on sides Skin: No normal color, No warm/dry, No cyanosis, No cool, No diaphoresis, No damp, No ecchymosis, No jaundice, No mottled, No pallor, No rash, No tattoos/ piercings, No ulcerations, No rash on exposed areas, No ulcerations on exposed areas, No other Data Review Labs Laboratory Tests 04/22/17 20:53: Glucometer 172H 04/23/17 03:32: White Blood Count 9.7, Red Blood Count 4.03L, Hemoglobin 12.2, Hematocrit 36, Mean Corpuscular Volume 90, Mean Corpuscular Hemoglobin 30, Mean Corpuscular Hemoglobin Concent 34, Red Cell Distribution Width 13.0, Platelet Count 207, Mean Platelet Volume 12.1H, Neutrophils (%) (Auto) 57, Lymphocytes (%) (Auto) 33 , Monocytes (%) (Auto) 7, Eosinophils (%) (Auto) 2, Basophils (%) (Auto) 0, Neutrophils # (Auto) 5.5, Lymphocytes # (Auto) 3.2, Monocytes # (Auto) 0.7, Eosinophils # (Auto) 0.2, Basophils # (Auto) 0.0, Sodium Level 139, Potassium Level 3.5L, Chloride Level 100, Carbon Dioxide Level 26, Anion Gap 13, Blood Urea Nitrogen 17, Creatinine 0.98, Estimat Glomerular Filtration Rate 54, BUN/ Creatinine Ratio 17, Glucose Level 126H, Calcium Level 9.4, Total Bilirubin 1.0 , Aspartate Amino Transf (AST/SGOT) 75H, Alanine Aminotransferase (ALT/SGPT) 157H, Alkaline Phosphatase 90, Total Protein 6.9, Albumin 4.0 04/23/17 13:20: ECG Impression ECG Initial ECG Impression: Atrial Fibrillation A/P-Cardiology Assessment/Admission Diagnosis atrial fibrillation, chest pain, shortness of breath, cad/cabg Plan atrial fibrillation: controlled heart rate. will start Eliquis and continue beta chico. dizziness: will get event monitor on discharge. shortness of breath: elevated BNP. no significant CHF on exam. probably mild diastolic heart failure. continue lasix. echo shows severe LV systolic dysfunction, moderate to severe aortic stenosis, severe tricuspid regurgitation , moderate to severe mitral regurgitation. Worsening of LV function is noted. CAD: continue current meds. Patient can be discharged to follow-up with Dr. Craig. Thank you for your consultation. Please call me if you have any questions. Josh Black MD, FACP, FACC, FSCAI, FHRS, CCDS Interventional Cardiology Cardiac Electrophysiology Vascular Medicine and Endovascular Interventions Clinical Quality Measures DVT/VTE Risk/Contraindication: Risk Factor Score Per Nursin RFS Level Per Nursing on Admit: 4+=Very High Jose Juan BLACK MD Apr 23, 2017 10:56 am
[2017-04-23] MEDS ORDERED: PROPRANOLOL 20 MG (INDERAL) TABLET PO SCH (12:00)
[2017-04-23] MEDS ORDERED: APIXABAN 5 MG (ELIQUIS) TABLET PO SCH (12:00)
[2017-04-23] MEDS ORDERED: FUROSEMIDE 20 MG (LASIX) TAB PO NR (12:45)
[2017-04-23] MEDS ORDERED: KCL 10 MEQ TAB (MICRO K) PO NR (12:45)
--- NOTE | 2017-04-23 12:45 | Progress Note (SOAP) ---
Subjective Date Seen by Provider: Apr 23, 2017 Time Seen by Provider: 12:40 Subjective/Events-last exam Fwup new onset atrial fibrillation--rate controlled, acute on chronic diastolic/ systolic CHF, hypertensive urgency, diabetes mellitus II, Hx. of CAD. Resting in bed. Feels better. Objective Exam Vital Signs Date Time Temp Pulse Resp B/P (MAP) Pulse Ox O2 Delivery O2 Flow Rate FiO2 04/23/17 07:00 76 04/23/17 04:10 97.0 62 18 158/78 97 Room Air 04/23/17 04:10 97 Room Air 04/23/17 02:05 62 18 147/84 96 Room Air 04/23/17 01:00 70 04/23/17 00:00 97.4 62 20 147/78 Room Air 04/22/17 23:00 97.2 67 18 156/89 98 Room Air 04/22/17 22:00 69 18 149/81 98 Room Air 04/22/17 21:00 97.4 73 20 162/99 98 Room Air 04/22/17 21:00 98 Room Air 04/22/17 20:00 97 Room Air 04/22/17 20:00 97.0 65 20 152/99 98 Room Air 04/22/17 19:00 49 04/22/17 18:51 04/22/17 18:00 73 154/104 92 04/22/17 17:45 161/93 98 04/22/17 16:50 174/113 04/22/17 15:40 97.4 78 16 117/113 97 Room Air I & O 04/23/17 07:00 Intake Total 770 ml Output Total 3550 ml Balance -2780 ml Capillary Refill : Less Than 3 Seconds General Appearance: No Apparent Distress Neck: Supple Respiratory: Lungs Clear Cardiovascular: Systolic Murmur, Gallop/S4, Irregularly Irregular Gastrointestinal: normal bowel sounds, non tender, soft Extremity: Non Tender, No Calf Tenderness, Pedal Edema (1plus) Neurologic/Psychiatric: Alert, Oriented x3 Results Lab Laboratory Tests 04/22/17 12:55: Prothrombin Time 13.9, INR Comment 1.1, Activated Partial Thromboplast Time 28, Sodium Level 137, Potassium Level 4.5, Chloride Level 103, Carbon Dioxide Level 24, Anion Gap 10, Blood Urea Nitrogen 20H, Creatinine 1.19, Estimat Glomerular Filtration Rate 43, BUN/Creatinine Ratio 17, Glucose Level 167H, Calcium Level 9.2, Magnesium Level 1.9, Total Bilirubin 0.9, Aspartate Amino Transf (AST/SGOT ) 91H, Alanine Aminotransferase (ALT/SGPT) 166H, Alkaline Phosphatase 85, Total Creatine Kinase 70, Creatine Kinase MB 2.2, Troponin I < 0.30, B-Type Natriuretic Peptide 1064.0H, Total Protein 6.6, Albumin 3.9, Amylase Level 37, Lipase 27, TSH Rice Testing 2.17 04/22/17 20:53: Glucometer 172H 04/23/17 03:32: Sodium Level 139, Potassium Level 3.5L, Chloride Level 100, Carbon Dioxide Level 26, Anion Gap 13, Blood Urea Nitrogen 17, Creatinine 0.98, Estimat Glomerular Filtration Rate 54, BUN/Creatinine Ratio 17, Glucose Level 126H, Calcium Level 9.4, Total Bilirubin 1.0, Aspartate Amino Transf (AST/SGOT) 75H, Alanine Aminotransferase (ALT/SGPT) 157H, Alkaline Phosphatase 90, Total Protein 6.9, Albumin 4.0, White Blood Count 9.7, Red Blood Count 4.03L, Hemoglobin 12.2, Hematocrit 36, Mean Corpuscular Volume 90, Mean Corpuscular Hemoglobin 30, Mean Corpuscular Hemoglobin Concent 34, Red Cell Distribution Width 13.0, Platelet Count 207, Mean Platelet Volume 12.1H, Neutrophils (%) ( Auto) 57, Lymphocytes (%) (Auto) 33, Monocytes (%) (Auto) 7, Eosinophils (%) ( Auto) 2, Basophils (%) (Auto) 0, Neutrophils # (Auto) 5.5, Lymphocytes # (Auto) 3.2, Monocytes # (Auto) 0.7, Eosinophils # (Auto) 0.2, Basophils # (Auto) 0.0 Assessment/Plan Assessment/Plan Assess & Plan/Chief Complaint 1. New onset atrial fibrillation--started on eliquis by cardiology and beta chico 2. Acute on Chronic Diastolic/Systolic CHF--start low dose oral lasix 3. Hypertensive Urgency--improving, continue current meds 4. Diabetes mellitus, II--on accuchecks with SSI 5. Hypokalemia--replace potassium and check K and Mg level in AM 6. Elevated LFTs--uncertain etiology, add hepatitis profile and monitor Clinical Quality Measures DVT/VTE Risk/Contraindication: Risk Factor Score Per Nursin RFS Level Per Nursing on Admit: 4+=Very High MI DENG DO Apr 23, 2017 12:45
[2017-04-23] MEDS: meTOprolol TARTRATE 25 MG (LOPRESSOR) TABLET PO SCH ×2 (13:31→21:40)
[2017-04-23] MEDS: APIXABAN 5 MG (ELIQUIS) TABLET PO SCH ×2 (13:32→21:40)
[2017-04-24] VITALS: BP 135/65
[2017-04-24] MEDS: NITROGLYCERIN 2% OINT 1 GM UNIT DOSE PACKET TOP SCH (02:31)
[2017-04-24 04:00] VITALS: BP 155/94
[2017-04-24 04:29] LABS: BASOPHILS % (AUTO) 0 % (0-10); EOSINOPHILS # (AUTO) 0.2 10^3/uL (0.0-0.3); EOSINOPHILS % (AUTO) 3 % (0-10); LYMPHOCYTES # (AUTO) 2.6 X 10^3 (1.0-4.0); LYMPHOCYTES % (AUTO) 38 % (12-44); MEAN CORPUSCULAR HEMOGLOBIN 30 PG (25-34); MEAN CORPUSCULAR HGB CONC 33 G/DL (32-36); MEAN CORPUSCULAR VOLUME 91 FL (80-99); MEAN PLATELET VOLUME 11.4 FL (7.4-10.4); MONOCYTES # (AUTO) 0.6 X 10^3 (0.0-1.0); MONOCYTES % (AUTO) 9 % (0-12); NEUTROPHILS # (AUTO) 3.3 X 10^3 (1.8-7.8); NEUTROPHILS % (AUTO) 49 % (42-75); PLATELET COUNT 189 10^3/uL (130-400); RED BLOOD COUNT 3.83 10^6/uL (4.35-5.85); RED CELL DISTRIBUTION WIDTH 12.9 % (10.0-14.5); WHITE BLOOD COUNT 6.7 10^3/uL (4.3-11.0)
[2017-04-24 05:28] LABS: ALBUMIN 3.6 GM/DL (3.2-4.5); CALCIUM 8.7 MG/DL (8.5-10.1); CREATININE SERUM 0.97 MG/DL (0.60-1.30); MAGNESIUM 1.6 MG/DL (1.8-2.4); POTASSIUM 3.5 MMOL/L (3.6-5.0); TOTAL PROTEIN 6.1 GM/DL (6.4-8.2)
[2017-04-24] MEDS: inSUlin (REGULAR) HUMAN 1 UNIT/0.01 ML (CHARGE PER UNIT) SC SCH ×2 (06:19→11:00)
[2017-04-24] MEDS: CATHETER FLUSH 10 ML SYR IV SCH (06:19)
[2017-04-24 08:00] VITALS: BP 156/88
[2017-04-24] MEDS ORDERED: FUROSEMIDE 40 MG/4 ML INJ (LASIX) IVP NR (08:30)
[2017-04-24] MEDS ORDERED: lisINopril 20 MG (ZESTRIL) TAB PO SCH (09:00)
[2017-04-24] MEDS ORDERED: FUROSEMIDE 20 MG (LASIX) TAB PO SCH (09:00)
[2017-04-24] MEDS ORDERED: meTOproloL SUCCINATE 50 MG (TOPROL XL) TAB PO SCH (09:00)
[2017-04-24] MEDS: ASPIRIN E.C. 325 MG (ECOTRIN) TABLET PO SCH (10:21)
[2017-04-24] MEDS: APIXABAN 5 MG (ELIQUIS) TABLET PO SCH (10:21)
[2017-04-24] MEDS: amLODIPine 5 MG (NORVASC) TAB PO SCH (10:22)
[2017-04-24 12:00] VITALS: BP 165/82
[2017-04-24] MEDS ORDERED: APIX5TAB PO (12:08)
[2017-04-24] MEDS ORDERED: METO-272 PO (12:08)
--- NOTE | 2017-04-24 12:10 | Discharge Inst-Simple/Standard ---
Discharge Inst-Standard Discharge Medications New, Converted or Re-Newed RX: Transmitted to Pharmacy Patient Instructions/Follow Up Plan of Care/Instructions/FU: Fwup with me in [address] Craig in 1-2 weeks Activity as Tolerated: Yes Discharge Diet: ADA Diet, Cardiac Diet MI DENG DO Apr 24, 2017 12:10 pm
--- NOTE | 2017-04-24 12:29 | Cardiology Progress Note ---
Cardiology SOAP Progress Note Subjective: No shortness of breath Objective: I&O/Vital Signs Vital Sign - Last 12Hours 04/24/17 04/24/17 04/24/17 04/24/17 01:00 04:00 04:00 07:00 Temp 96.9 Pulse 75 75 71 Resp 18 B/P (MAP) 155/94 Pulse Ox 96 96 O2 Delivery Room Air Room Air 04/24/17 04/24/17 04/24/17 08:00 09:00 12:01 O2 Delivery Room Air Room Air Room Air Intake and Output 04/24/17 00:00 Intake Total 600 ml Output Total 500 ml Balance 100 ml Weight (Pounds): 148 Weight (Ounces): 8.0 Weight (Calculated Kilograms): [id number] Constitutional: No appears stated age, No AAO x 3, No apparent distress, No PERRL, No well-developed, No well-nourished, No other Respiratory: No accessory muscle use, No respiratory distress, No chest tender , No chest expansion is symmetric, No chest is bilaterally symmetric, No lungs clear to percussion, No lungs clear to auscultation, No crackles, No rhonchi, No rales, No stridor, No wheezing, No pleural rub, No other Cardiovascular: irregularly irregular, S1 and S2 Gastrointestional: No tender, No soft, No round, No distended, No pulsatile mass, No organomegaly, No guarding, No rebound, No tenderness, No hernia, No mass, No audible bowel sounds, No abnormal bowel sounds, No abdominal bruits, No spleenomegaly, No other Extremities: No clubbing, No cyanosis, No significant edema Neurologic/Psychiatric: alert, oriented x 3, power is 5/5 both on sides Skin: No normal color, No warm/dry, No cyanosis, No cool, No diaphoresis, No damp, No ecchymosis, No jaundice, No mottled, No pallor, No rash, No tattoos/ piercings, No ulcerations, No rash on exposed areas, No ulcerations on exposed areas, No other Results/Procedures: Labs Laboratory Tests 04/23/17 12:47: Glucometer 122H 04/23/17 13:20: Hepatitis A IgM Antibody Non-Reactive, Hepatitis B Surface Antigen Non-Reactive , Hepatitis B Core IgM Antibody Non-Reactive, Hepatitis C Antibody Non-Reactive 04/23/17 15:15: Glucometer 173H 04/23/17 21:19: Glucometer 158H 04/24/17 03:25: White Blood Count 6.7, Red Blood Count 3.83L, Hemoglobin 11.5, Hematocrit 35, Mean Corpuscular Volume 91, Mean Corpuscular Hemoglobin 30, Mean Corpuscular Hemoglobin Concent 33, Red Cell Distribution Width 12.9, Platelet Count 189, Mean Platelet Volume 11.4H, Neutrophils (%) (Auto) 49, Lymphocytes (%) (Auto) 38 , Monocytes (%) (Auto) 9, Eosinophils (%) (Auto) 3, Basophils (%) (Auto) 0, Neutrophils # (Auto) 3.3, Lymphocytes # (Auto) 2.6, Monocytes # (Auto) 0.6, Eosinophils # (Auto) 0.2, Basophils # (Auto) 0.0, Sodium Level 141, Potassium Level 3.5L, Chloride Level 102, Carbon Dioxide Level 24, Anion Gap 15H, Blood Urea Nitrogen 16, Creatinine 0.97, Estimat Glomerular Filtration Rate 55, BUN/ Creatinine Ratio 16, Glucose Level 111H, Calcium Level 8.7, Magnesium Level 1.6L , Total Bilirubin 1.0, Aspartate Amino Transf (AST/SGOT) 42H, Alanine Aminotransferase (ALT/SGPT) 109H, Alkaline Phosphatase 76, Total Protein 6.1L, Albumin 3.6 A/P: Assessment/Dx: atrial fibrillation, chest pain, shortness of breath, cad/cabg Plan: atrial fibrillation: controlled heart rate. will start Eliquis and continue beta chico. dizziness: will get event monitor on discharge. shortness of breath: elevated BNP. no significant CHF on exam. probably mild diastolic heart failure. continue lasix. echo shows severe LV systolic dysfunction, moderate to severe aortic stenosis, severe tricuspid regurgitation , moderate to severe mitral regurgitation. Worsening of LV function is noted. We will give 1 dose of IV Lasix 40 mg this morning. She will go home on the same dose of Lasix and follow-up per Dr. Craig. CAD: continue current meds. Patient can be discharged to follow-up with Dr. Craig. Thank you for your consultation. Please call me if you have any questions. Josh Black MD, FACP, FACC, FSCAI, FHRS, CCDS Interventional Cardiology Cardiac Electrophysiology Vascular Medicine and Endovascular Interventions Jose Juan BLACK MD Apr 24, 2017 12:29
--- NOTE | 2017-04-24 12:29 | Discharge Summary ---
Diagnosis/Chief Complaint Date of Admission Apr 22, 2017 at 4:05 pm Date of Discharge Discharge Date: Apr 24, 2017 Admission Diagnosis Admission Diagnosis 1. New onset atrial fibrillation with rate controlled--admit and give IV lovenox and consult cardiology 2. Hypertensive Urgency--resume amlodopine, give diovan now and apresoline prn 3. Acute on Chronic Systolic Congestive Heart Failure--IV lasix for diuresis 4. Severe Mitral Regurgitation on last ECHO 5. Diabetes mellitus--start accuchecks with SSI 6. History of noncompliance with medications 7. History of CAD with CABG Discharge Diagnosis 1. New onset atrial fibrillation with rate controlled--stable 2. Hypertensive Urgency--improved 3. Acute on Chronic Systolic Congestive Heart Failure--improved 4. Severe Mitral Regurgitation on last ECHO--fwup with Cardiology 5. Diabetes mellitus--home medications resumed 6. History of noncompliance with medications 7. History of CAD with CABG--stable 8. Hypokalemia--replace orally 9. Hypomagnesemia--replace orally Reason Hospital Visit This is an 82 year old female with a known history of CAD with CABG who was brought to the emergency room by her family due to dyspnea on exertion. The patient had been visiting a friend in [place] during the month of March and states that when she came back on the plane the first part april, she noted that she was short of air and dizzy but thought it was due to the altitude and poor airflow in the airplane cabin. However, she has continued to have fatigue , dizziness especially when standing up from a sitting position and shortness of air with very little exertion. She was found to be in atrial fibrillation as well on congestive heart failure in the emergency room She was given IV lasix and well as IV cardizem and it was decided to admit her to cardiac stepdown with cardiology consult. Discharge Summary Hospital Course Hospital Course This is an 82 year old female with a known history of CAD with CABG who was brought to the emergency room by her family due to dyspnea on exertion. The patient had been visiting a friend in [place] during the month of March and states that when she came back on the plane the first part april, she noted that she was short of air and dizzy but thought it was due to the altitude and poor airflow in the airplane cabin. However, she has continued to have fatigue , dizziness especially when standing up from a sitting position and shortness of air with very little exertion. She was found to be in atrial fibrillation as well as congestive heart failure in the emergency room She was given IV lasix and well as IV cardizem and it was decided to admit her to cardiac stepdown with cardiology consult. She was admitted to the ICU as cardiac stepdown and monitored on telemetry. She remained in atrial fibrillation but her rate was controlled. She was initially started on lovenox and then was switched to eliquis on hospital day #2. She did have hypertensive urgency on admit which required resuming her amlodopine as well as a dose of diovan and apresoline prn. By the second hospital day, her blood pressure was improving. She diuresed well after IV lasix and was started on oral lasix with potassium on hospital day #2. She had no further shortness of air or dizziness following the diuresis. She was up to the chair and ambulating prior to discharge with no chest pain, no shortness of air, and no dizziness. She was started on metopolol instead of propranolol and was concerned about worsening tremor with this change but was in agreement that she needed the better beta chico for her heart over her tremor. I discussed with her that we could look at other options as an outpatient for her tremor when she has her followup. She will be discharged home on eliquis and metoprolol and followup with me in 1 week and cardiology in 2 weeks. Labs Laboratory Tests 04/22/17 11:40: Red Blood Count 4.29L, Mean Platelet Volume 11.8H 04/22/17 12:55: Blood Urea Nitrogen 20H, Glucose Level 167H, Aspartate Amino Transf (AST/SGOT) 91H, Alanine Aminotransferase (ALT/SGPT) 166H, B-Type Natriuretic Peptide 1064.0H 04/22/17 20:53: Glucometer 172H 04/23/17 03:32: Red Blood Count 4.03L, Mean Platelet Volume 12.1H, Glucose Level 126H, Aspartate Amino Transf (AST/SGOT) 75H, Alanine Aminotransferase (ALT/SGPT) 157H , Potassium Level 3.5L 04/23/17 12:47: Glucometer 122H 04/23/17 13:20: 04/23/17 15:15: Glucometer 173H 04/23/17 21:19: Glucometer 158H 04/24/17 03:25: Red Blood Count 3.83L, Mean Platelet Volume 11.4H, Potassium Level 3.5L, Anion Gap 15H, Glucose Level 111H, Magnesium Level 1.6L, Aspartate Amino Transf (AST/ SGOT) 42H, Alanine Aminotransferase (ALT/SGPT) 109H, Total Protein 6.1L Procedures None. Consultations Cardiology--Dr. Black Discharge Physical Examination Allergies: Coded Allergies: No Known Drug Allergies (Unverified , 04/15/13) Vitals & I&Os Vital Signs Date Time Temp Pulse Resp B/P (MAP) Pulse Ox O2 Delivery O2 Flow Rate FiO2 04/24/17 12:01 Room Air 04/24/17 07:00 71 04/24/17 04:00 96.9 18 155/94 96 General Appearance: Alert, Oriented X3, Cooperative, No Acute Distress Respiratory: Clear to Auscultation Cardiovascular: Other (irregularly irregular) Abdominal: Normal Bowel Sounds, Soft, No Tenderness Extremities: No Clubbing, No Cyanosis, No Edema Neuro: Normal Gait, Normal Speech Psych/Mental Status: Mental Status NL, Mood NL Discharge Home Medications Reviewed and agree with Discharge Medication list on patient's Discharge Instruction sheet Instructions to Patient/Family Please see electonic discharge instructions given to patient. Clinical Quality Measures DVT/VTE Risk/Contraindication: Risk Factor Score Per Nursin RFS Level Per Nursing on Admit: 4+=Very High MI DENG DO Apr 24, 2017 12:29 pm
[2017-04-24] MEDS ORDERED: MAGNESIUM OXIDE (MAG-OX)400 MG TAB PO NR (12:30)
[2017-04-24] MEDS ORDERED: KCL 10 MEQ TAB (MICRO K) PO NR (12:30)
== END 2017-04-24 13:00 | disposition home or self-care (01) | DRG 308 ==
LOC: EDUNIT# 11:18 → ER 11:20 → ICU 16:05
PROVIDERS: ADMIT Family Medicine; ATTEND Family Medicine
DX: I48.91 Unspecified atrial fibrillation (principal); I16.0 Hypertensive urgency; I11.0 Hypertensive heart disease with heart failure; I50.23 Acute on chronic systolic (congestive) heart failure; I08.3 Combined rheumatic disorders of mitral, aortic and tricuspid valves; I25.10 Atherosclerotic heart disease of native coronary artery without angina pectoris; R42 Dizziness and giddiness; E11.9 Type 2 diabetes mellitus without complications; E87.6 Hypokalemia; E83.42 Hypomagnesemia; F41.9 Anxiety disorder, unspecified; Z91.14 Patient's other noncompliance with medication regimen; Z95.1 Presence of aortocoronary bypass graft; Z79.84 Long term (current) use of oral hypoglycemic drugs; Z95.828 Presence of other vascular implants and grafts
CPT/HCPCS: 36415; 71010; 71275; 80053; 80074; 82150; 82550; 82553; 82962; 83690; 83735; 83880; 84443; 84484; 85025; 85610; 85730; 93005; 96372; 96374; 96375; 99282

== ENCOUNTER 2017-05-01 16:03 | Emergency (ER) | payer MEDICARE ==
[~2017-05-01] VITALS: Ht 172.7 cm; Wt 77.1 kg
[~2017-05-01 16:03] MED LIST changes: +AMLO5TAB2 PO; +APIX5TAB PO; +ASPI-999 PO; +ATOR40TA70 PO; +BISA-65 PO; +FERR-65 PO; +FURO20TA4 PO; +LISI-552 PO; +METO-272 PO; +POTA10TA10 PO
[2017-05-01] MEDS ORDERED: DILTIAZEM 25 MG/5 ML INJ (CARDIZEM) VIAL ONE (16:24)
[2017-05-01] MEDS ORDERED: DILTIAZEM 100 MG/VIAL (CARDIZEM) ADD-VANTAGE IV ONE (16:25)
[2017-05-01] MEDS ORDERED: SODIUM CHLORIDE (ADD-VANTAGE) 0 ML IV ONE (16:26)
--- NOTE | 2017-05-01 16:29 | ED Cardiac General ---
History of Present Illness General Stated Complaint: RAPID HEART RATE Source: patient, family Exam Limitations: no limitations (TRISH XIONG) History of Present Illness Time seen by provider: 16:18 Initial Comments Patient presents to ER by private conveyance with her family with chief complaint of palpitations in her neck. She denies any chest pain nausea shortness of breath numbness or tingling. She says occasionally she'll get numbness feeling in her fingertips but not presently. She has a history of quadruple bypass and has not had any coronary catheterization. She says that she was recent started 3 days ago on Eliquis by her commissioner conservation of resources. She is not had any pain weakness stumbled or falls. She says prior to 3 days ago she was only on aspirin. She was recently in the hospital for a CHF exacerbation on the her the . She was started on higher dose of water pills and has lost over 20 pounds since admission. (TRISH XIONG) Allergies and Home Medications Allergies Coded Allergies: No Known Drug Allergies (Unverified , 04/15/13) Home Medications Amlodipine Besylate 5 Mg Tablet, 5 MG PO DAILY, (Reported) Apixaban 5 Mg Tablet, 5 MG PO BID, #60 Prescribed by: MI DENG on 04/24/17 1208 Aspirin 81 Mg Tab.chew, 81 MG PO DAILY, (Reported) Atorvastatin Calcium 40 Mg Tablet, 40 MG PO HS, (Reported) Bisacodyl 5 Mg Tablet.dr, 15 MG PO Q72H, (Reported) Cephalexin 500 Mg Capsule, 500 MG PO BID for 5 Days, #9 Ref 0 Prescribed by: TRISH XIONG on 05/01/178 Cholecalciferol (Vitamin D3) 1,000 Unit Tablet, 1,000 UNIT PO DAILY, (Reported) Diltiazem HCl 240 Mg Cap.er.24h, 240 MG PO DAILY for 14 Days, #14 Ref 0 Prescribed by: TRISH XIONG on 05/01/171837 Furosemide 20 Mg Tablet, 20 MG PO DAILY, (Reported) Glimepiride 2 Mg Tablet, 2 MG PO DAILY, (Reported) Lisinopril 20 Mg Tablet, 20 MG PO DAILY, (Reported) Magnesium Oxide 250 Mg Tablet, 250 MG PO BID, (Reported) Metformin Hcl 500 Mg Tab.sr.24h, 500 MG PO BID WITH MEALS, (Reported) Metoprolol Succinate 50 Mg Tab.er.24h, 50 MG PO DAILY, #30 Prescribed by: MI DENG on 04/24/17 1208 Multivitamin 1 Each Tablet, 1 TAB PO DAILY, (Reported) Potassium Chloride 10 Meq Tablet.er, 10 MEQ PO DAILY, (Reported) Review of Systems Constitutional: No chills, No diaphoresis, No malaise, No weakness Respiratory: Denies Cough, Denies Shortness of Air Cardiovascular: Denies Chest Pain, Denies Edema, Irregular Heart Rate, Palpitations Gastrointestinal: Denies Abdominal Pain, Constipated, Denies Nausea Genitourinary: Denies Burning, Denies Discharge Musculoskeletal: No back pain, No joint pain Skin: No pruritus, No rash Psychiatric/Neurological: Denies Headache, Denies Numbness Endocrine: Denies Unexplained Weight Gain, Denies Unexplaned Weight Loss ( TRISH XIONG) Past Ayhhfse-Jisics-Giztrv Hx Patient Social History Alcohol Use: Denies Use Recreational Drug Use: No Smoking Status: Never a Smoker 2nd Hand Smoke Exposure: No Recent Foreign Travel: No Contact w/Someone Who Travel: No (TRISH XIONG) Immunizations Up To Date Tetanus Booster (TDap): Unknown Date of Pneumonia Vaccine: Sep 04, 2013 Date of Influenza Vaccine: Nov 17, 2014 (TRISH XIONG) Surgeries HX Surgeries: Yes Surgeries: Cardiac, CABG, Eye Surgery, Hysterectomy, Orthopedic, Tonsillectomy (TRISH XIONG) Respiratory Hx Respiratory Disorders: Yes Respiratory Disorders: Pneumonia (TRISH XIONG) Cardiovascular Hx Cardiac Disorders: Yes Cardiac Disorders: Chronic Edema/Swelling, Coronary Artery Disease, High Cholesterol, Hypertension (TRISH XIONG) Neurological Hx Neurological Disorders: No (TRISH XIONG) 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 System Hx 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 Disorders: No Sexually Transmitted Disease: No HIV/AIDS: No 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 Disorders: Denies [employer] History: Hysterectomy, Menopausal (TRISH XIONG) Genitourinary Hx Genitourinary Disorders: Yes (Renal stent) Genitourinary Disorders: UTI-Chronic (TRISH XIONG) Gastrointestinal Hx Gastrointestinal Disorders: Yes Gastrointestinal Disorders: Gastroesophageal Reflux, Chronic Constipation (TRISH XIONG) Musculoskeletal Hx Musculoskeletal Disorders: No Musculoskeletal Disorders: Arthritis (TRISH XIONG) Endocrine Hx Endocrine Disorders: Yes (NON-COMPLIANT WITH MEDICATIONS AND NEVER CHECKS BLOOD GLUCOSE) Endocrine Disorders: Diabetes, Non-Insulin dep (TRISH XIONG) HEENT HX ENT Disorders: Yes (Cataract surgery ) HEENT Disorders: Cataract (TRISH XIONG) Cancer Hx Cancer: No (TRISH XIONG) Psychosocial Hx Psychiatric Problems: Yes Behavioral Health Disorders: Anxiety (TRISH XIONG) Integumentary HX Skin/Integumentary Disorder: No (TRISH XIONG) Blood Transfusions Hx Blood Disorders: No (TRISH XIONG) Family Medical History Family Medial History: Colon cancer 19 FATHER G8 BROTHER Diabetes mellitus 19 FATHER Hypertension 19 MOTHER Myocardial infarction 19 MOTHER (TRISH XIONG) Family Medial History: Colon cancer 19 FATHER G8 BROTHER Diabetes mellitus 19 FATHER Hypertension 19 MOTHER Myocardial infarction 19 MOTHER (TURNER CHEN APRN) Physical Exam Vital Signs Vital Sign - Last 12Hours 05/01/17 16:25 Pulse 134 Resp 14 B/P (MAP) 158/94 Pulse Ox 98 (TURNER CHEN APRN) Vital Signs Capillary Refill : (TRISH XIONG) General Appearance: No Apparent Distress, WD/WN HEENT: PERRL/EOMI, Pharynx Normal Neck: Full Range of Motion, Normal Inspection, Non Tender, Supple, JVD (1cm) Respiratory: Lungs Clear, Normal Breath Sounds Cardiovascular: No Edema, Normal Peripheral Pulses Gastrointestinal: Normal Bowel Sounds, Non Tender, Soft Extremity: Normal Capillary Refill, No Pedal Edema Neurologic/Psychiatric: Alert, Oriented x3, No Motor/Sensory Deficits Skin: Normal Color, Warm/Dry (TRISH XIONG) Progress/Results/Core Measures Results/Orders Lab Results Laboratory Tests Test 05/01/17 16:25 05/01/17 16:58 05/01/17 17:40 05/01/17 17:50 Range/Units White Blood Count 9.9 4.3-11.0 10^3/uL Red Blood Count 4.53 4.35-5.85 10^6/uL Hemoglobin 13.6 11.5-16.0 G/DL Hematocrit 41 35-52 % Mean Corpuscular Volume 91 80-99 FL Mean Corpuscular Hemoglobin 30 25-34 PG Mean Corpuscular Hemoglobin Concent 33 32-36 G/DL Red Cell Distribution Width 12.8 10.0-14.5 % Platelet Count 244 130-400 10^3/uL Mean Platelet Volume 10.8 H 7.4-10.4 FL Neutrophils (%) (Auto) 48 42-75 % Lymphocytes (%) (Auto) 42 12-44 % Monocytes (%) (Auto) 7 0-12 % Eosinophils (%) (Auto) 2 0-10 % Basophils (%) (Auto) 0 0-10 % Neutrophils # (Auto) 4.7 1.8-7.8 X 10^3 Lymphocytes # (Auto) 4.2 H 1.0-4.0 X 10^3 Monocytes # (Auto) 0.7 0.0-1.0 X 10^3 Eosinophils # (Auto) 0.2 0.0-0.3 10^3/uL Basophils # (Auto) 0.0 0.0-0.1 10^3/uL Sodium Level 134 L 135-145 MMOL/L Potassium Level 4.0 3.6-5.0 MMOL/L Chloride Level 95 L 98-107 MMOL/L Carbon Dioxide Level 25 21-32 MMOL/L Anion Gap 14 5-14 MMOL/L Blood Urea Nitrogen 21 H 7-18 MG/DL Creatinine 1.04 0.60-1.30 MG/DL Estimat Glomerular Filtration Rate 51 BUN/Creatinine Ratio 20 Glucose Level 59 *L 70-105 MG/DL Calcium Level 10.4 H 8.5-10.1 MG/DL Magnesium Level 1.9 1.8-2.4 MG/DL Total Bilirubin 0.8 0.1-1.0 MG/DL Aspartate Amino Transf (AST/SGOT) 41 H 5-34 U/L Alanine Aminotransferase (ALT/SGPT) 24 0-55 U/L Alkaline Phosphatase 70 40-136 U/L Troponin I < 0.30 <0.30 NG/ML B-Type Natriuretic Peptide 102.2 H <100.0 PG/ML Total Protein 8.1 6.4-8.2 GM/DL Albumin 4.4 3.2-4.5 GM/DL Glucometer 57 *L 68 L 70-110 MG/DL Urine Color YELLOW Urine Clarity SLIGHTLY CLOUDY Urine pH 6 5-9 Urine Specific [place] 1.010 L 1.016-1.022 Urine Protein NEGATIVE NEGATIVE Urine Glucose (UA) NEGATIVE NEGATIVE Urine Ketones NEGATIVE NEGATIVE Urine Nitrite POSITIVE H NEGATIVE Urine Bilirubin NEGATIVE NEGATIVE Urine Urobilinogen NORMAL NORMAL MG/DL Urine Leukocyte Esterase 2+ H NEGATIVE Urine RBC (Auto) 1+ H NEGATIVE Urine RBC RARE /HPF Urine WBC 10-25 H /HPF Urine Squamous Epithelial Cells 2-5 /HPF Urine Crystals NONE /LPF Urine Bacteria LARGE H /HPF Urine Casts NONE /LPF Urine Mucus NEGATIVE /LPF Urine Culture Indicated YES Test 05/01/17 18:32 05/01/17 19:47 Range/Units Glucometer 121 H 70-110 MG/DL Troponin I < 0.30 <0.30 NG/ML (TURNER CHEN APRN) Medications Given in ED Current Medications Medications Dose Ordered Sig/Mony Route Start Time Stop Time Status Last Admin Dose Admin Ceftriaxone Sodium 1000 mg/ Sodium Chloride 50 ml @ 100 mls/hr ONCE ONCE IV 05/01/17 18:30 05/01/17 18:59 DC 05/01/17 18:35 100 MLS/HR Diltiazem HCl 10 mg ONCE ONCE IVP 05/01/17 16:30 05/01/17 16:34 DC 05/01/17 16:42 10 MG Diltiazem HCl 240 mg ONCE ONCE PO 05/01/17 18:00 05/01/17 18:01 DC 05/01/17 19:00 240 MG Lorazepam 1 mg ONCE ONCE IVP 05/01/17 16:30 05/01/17 16:34 DC 05/01/17 16:46 1 MG (TURNER CHEN APRN) Vital Signs/I&O Vital Sign - Last 12Hours 05/01/17 05/01/17 16:25 20:50 Pulse 134 90 Resp 14 13 B/P (MAP) 158/94 Pulse Ox 98 98 (TURNER CHEN APRN) Progress Note #1: Time: 17:00 Progress Note Blood glucose is low so we'll give her something to eat. Despite her recent CHF exacerbation were to try small dose of Cardizem see if we can get her to convert. She's been on For 4 days now. Progress Note #2: Time: 18:35 Progress Note Transferred care to Turner Chen and discussed case the patient would get Rocephin for her UTI need antibiotics outpatient. She will be started on Cardizem 240 mg CD by mouth daily. She is to follow-up with her commissioner conservation of resources first thing next week. She should follow-up with her PCP for her blood sugars next week. She can go home if her blood sugars are normal after she eats. She also needs to have a normal delta troponin at 1930. (TRISH XIONG) ECG Initial ECG Impression Date: May 01, 2017 Initial ECG Impression Time: 16:18 Initial ECG Rate: 134 Initial ECG Rhythm: A Fib/Flutter Initial ECG Intervals: Normal Initial ECG Impression: Atrial Fibrillation w/RVR Initial ECG Comparisson: No Previous ECG Available EKG : EKG Time: 16:40 Rate: 104 Rhythm: A Fib/Flutter Intervals: Normal ECG Comparisson: Changed ECG Impression: Atrial Fibrillation (TRISH XIONG) Diagnostic Imaging Diagonstic Imaging: Xray Plain Films/CT/US/NM/MRI: chest Comments No acute cardioPulmonary processes noted compared to last. NAME: [facility] REC#: [id number] PHYSICIAN: TRISH XIONG MD CC: JAZZY RIVERA MD; TRISH XIONG Page 1 of 1 RADIOLOGY REPORT VIA [place], [place] CC: JAZZY RIVERA MD; TRISH XIONG Page 1 of 1 RADIOLOGY REPORT NAME: [facility] REC#: [id number] PT STATUS: REG ER : 1934 PHYSICIAN: TRISH XIONG MD ADMIT DATE: 05/01/17/ER Signed Date of Exam: 05/01/17 CHEST 1 VIEW, AP/PA ONLY INDICATION: Tachycardia. COMPARISON: 04/23/2017. FINDINGS: There is again noted mild cardiomegaly. The lungs are well-aerated. There are no infiltrates. No pulmonary edema. No hilar adenopathy. No pneumothorax or pleural effusion. IMPRESSION: 1. Postoperative residue with mild cardiomegaly. No acute change is noted. Dictated by: Dictated on workstation # [id number] Dict: 05/01/17 1656 Trans: 05/01/17 1730 Interpreted by: JAZZY RIVERA MD Electronically signed by: JAZZY RIVERA MD 05/01/17 4561 Reviewed: Reviewed by Me (TRISH XIONG) Consults Consults : Consulting Physician: HECTOR VERA MD FACP [facility] Consults Notes Spoke with the commissioner conservation of resources about the patient's labs and presentation. He feels that if she is responded okay short acting Cardizem he was going give her a by mouth 2-40 mg Cardizem CD tablet 1 now and then write her a prescription for a few weeks of the same tablet to be taken every day. He would have her follow up with cardiology on Thursday or Thursday if she does not have a commissioner conservation of resources she can follow-up with him. He would also recommend that if her sugars are under good control or anything else is worrisome that we could keep her in the hospital and further work her up or have her follow-up Thursday or Thursday with her PCP to manage her sugars care is appropriate. He would also recommend getting a to 3 hour delta troponin. (TRISH XIONG) Transfer of Care Transfer of Care Time: 18:35 Care transferred to: Gustavo (TRISH XIONG) Departure Communication Progress Notes 2056 patient is sleeping in bed. Adult children at the bedside. Remains A. fib with blood pressure 123/67. Rocephin has infused. Repeat troponin is negative. Discussed with patient and family that medications have been sent down's pharmacy for the A. fib and for the urinary tract infection. (TURNER CEHN APRN) Impression Impression: Primary Impression: Atrial fibrillation with rapid ventricular response Additional Impression: Hypoglycemia Disposition: HOME, SELF-CARE Condition: Improved Departure-Patient Inst. Referrals: MI DENG DO (PCP/Family) Primary Care Physician Patient Instructions: Atrial Fibrillation (DC) Add. Discharge Instructions: Your heart palpitations were caused by your atrial fibrillation going into a rapid rate. The medicine we started you on today was called Cardizem. You will take one tablet of Cardizem 240 mg every day until you see your commissioner conservation of resources. Please call your commissioner conservation of resources Thursday morning to get an appointment. If you do not have a commissioner conservation of resources you're welcome to see Dr. Lerma. I discussed your case with Dr. Lerma. If you're having new symptoms such as chest pain nausea or shortness of breath you should return to the ER immediately. Please limit your caffeine intake. Follow up with your primary care physician Thursday as well for your blood glucose being low. Scripts Cephalexin (Keflex) 500 Mg Capsule 500 MG PO BID for 5 Days, #9 CAP 0 Refills Prov: TRISH XIONG 05/01/17 Diltiazem HCl (Cardizem Cd) 240 Mg Cap.er.24h 240 MG PO DAILY for 14 Days, #14 CAP 0 Refills Prov: TRISH XIONG 05/01/17 Copy Copies To 1: MI DENG TITUS J May 01, 2017 16:29 TURNER CHEN APRN May 01, 2017 20:58
[2017-05-01] MEDS ORDERED: LORazepam INJ 2 MG/ML (ATIVAN) VIAL IVP ONE (16:30)
[2017-05-01] MEDS ORDERED: DILTIAZEM 25 MG/5 ML INJ (CARDIZEM) VIAL IVP ONE (16:30)
[2017-05-01 16:44] LABS: BASOPHILS % (AUTO) 0 % (0-10); EOSINOPHILS # (AUTO) 0.2 10^3/uL (0.0-0.3); EOSINOPHILS % (AUTO) 2 % (0-10); LYMPHOCYTES # (AUTO) 4.2 X 10^3 (1.0-4.0); LYMPHOCYTES % (AUTO) 42 % (12-44); MEAN CORPUSCULAR HEMOGLOBIN 30 PG (25-34); MEAN CORPUSCULAR HGB CONC 33 G/DL (32-36); MEAN CORPUSCULAR VOLUME 91 FL (80-99); MEAN PLATELET VOLUME 10.8 FL (7.4-10.4); MONOCYTES # (AUTO) 0.7 X 10^3 (0.0-1.0); MONOCYTES % (AUTO) 7 % (0-12); NEUTROPHILS # (AUTO) 4.7 X 10^3 (1.8-7.8); NEUTROPHILS % (AUTO) 48 % (42-75); PLATELET COUNT 244 10^3/uL (130-400); RED BLOOD COUNT 4.53 10^6/uL (4.35-5.85); RED CELL DISTRIBUTION WIDTH 12.8 % (10.0-14.5); WHITE BLOOD COUNT 9.9 10^3/uL (4.3-11.0)
[2017-05-01 16:54] LABS: ALANINE AMINOTRANSFERASE 24 U/L (0-55); ALBUMIN 4.4 GM/DL (3.2-4.5); ANION GAP 14 MMOL/L (5-14); ASPARTATE AMINO TRANSFERASE 41 U/L (5-34); BILIRUBIN,TOTAL 0.8 MG/DL (0.1-1.0); BLOOD UREA NITROGEN 21 MG/DL (7-18); BUN/CREATININE RATIO 20; CALCIUM 10.4 MG/DL (8.5-10.1); CARBON DIOXIDE 25 MMOL/L (21-32); CHLORIDE 95 MMOL/L (98-107); CREATININE SERUM 1.04 MG/DL (0.60-1.30); GFR ESTIMATED 51; MAGNESIUM 1.9 MG/DL (1.8-2.4); SODIUM 134 MMOL/L (135-145); TOTAL PROTEIN 8.1 GM/DL (6.4-8.2)
[2017-05-01 16:56] LABS: GLUCOSE 59 MG/DL (70-105)
--- NOTE | 2017-05-01 16:58 | Diagnostic Imaging Report ---
INDICATION: Tachycardia. COMPARISON: 04/23/2017. FINDINGS: There is again noted mild cardiomegaly. The lungs are well-aerated. There are no infiltrates. No pulmonary edema. No hilar adenopathy. No pneumothorax or pleural effusion. IMPRESSION: 1. Postoperative residue with mild cardiomegaly. No acute change is noted. Dictated by: Dictated on workstation # [id number]
[2017-05-01 17:00] LABS: TROPONIN I < 0.30 NG/ML (<0.30)
[2017-05-01 17:58] LABS: BILIRUBIN,URINE NEGATIVE (NEGATIVE); KETONES,URINE NEGATIVE (NEGATIVE); LEUKOCYTE ESTERASE ,URINE 2+ (NEGATIVE); NITRITE,URINE POSITIVE (NEGATIVE); PH,URINE 6 (5-9); PROTEIN,URINE NEGATIVE (NEGATIVE); UROBILINOGEN,URINE NORMAL (NORMAL)
[2017-05-01] MEDS ORDERED: DILTIAZEM 240 MG (CARDIZEM CD) CAP PO ONE (18:00)
[2017-05-01] MEDS ORDERED: cefTRIAXone INJECTION 1,000 MG in NS (IVPB) 50 ML IV ONE (18:30)
[2017-05-01] MEDS ORDERED: CEPH-507 PO (18:38)
[2017-05-01] MEDS ORDERED: DILT240C86 PO (18:38)
[2017-05-01 20:50] VITALS: BP 126/88
== END 2017-05-01 20:53 | disposition home or self-care (01) ==
LOC: EDUNIT# 16:03 → ER 16:05
DX: I48.0 Paroxysmal atrial fibrillation (principal); E11.649 Type 2 diabetes mellitus with hypoglycemia without coma; F41.9 Anxiety disorder, unspecified; M19.90 Unspecified osteoarthritis, unspecified site; K21.9 Gastro-esophageal reflux disease without esophagitis; K59.09 Other constipation; I25.10 Atherosclerotic heart disease of native coronary artery without angina pectoris; I11.0 Hypertensive heart disease with heart failure; I50.9 Heart failure, unspecified; R60.9 Edema, unspecified; Z91.14 Patient's other noncompliance with medication regimen; Z96.0 Presence of urogenital implants; Z90.710 Acquired absence of both cervix and uterus; Z95.5 Presence of coronary angioplasty implant and graft; Z90.89 Acquired absence of other organs; Z98.890 Other specified postprocedural states; Z79.84 Long term (current) use of oral hypoglycemic drugs; Z79.82 Long term (current) use of aspirin
CPT/HCPCS: 36415; 71010; 80053; 81000; 82962; 83735; 83880; 84484; 85025; 87077; 87088; 87186; 93041

== ENCOUNTER → 2017-05-22 | Outpatient (CLI) | payer MEDICARE ==
[~2017-05-22] MED LIST changes: +AMIO200T2 PO; +ASPI-983 PO; +CARB1TAB6 PO; +CEPH-507 PO; +CLOP75TA28 PO; +DILT240C86 PO; +LOSA25TA21 PO; -METO-272 PO; +METO-370 PO; +METO-387 PO; +RIVA15TA PO
--- NOTE | 2017-05-25 10:46 | Diagnostic Imaging Report ---
INDICATION: Screening mammogram. COMPARISON: 04/30/2016. TECHNIQUE: Digital screening mammography was obtained with CAD and 3D tomosynthesis imaging. FINDINGS: Scattered fibroglandular densities are present. There is no mass or suspicious calcification. IMPRESSION: Stable screening mammogram. No malignancy. ACR BI-RADS Category 1: Negative. Result letter will be mailed to the patient. Note: At least 10% of breast cancer is not imaged by mammography. Dictated by: Dictated on workstation # [id number]
== END ==
LOC: RAD 12:56
PROVIDERS: ATTEND Family Medicine
DX: Z12.31 Encounter for screening mammogram for malignant neoplasm of breast (principal)
CPT/HCPCS: 77067

== ENCOUNTER → 2017-07-22 | Outpatient (CLI) | payer MEDICARE ==
[~2017-07-22] VITALS: Ht 165.1 cm; Wt 66.7 kg
[~2017-07-22] MED LIST changes: -AMIO200T2 PO; -ASPI-983 PO; -CARB1TAB6 PO; -CLOP75TA28 PO; -LOSA25TA21 PO; +METO-272 PO; -METO-370 PO; -METO-387 PO; +REGADENOSON 0.4 MG/5 ML SYR (LEXISCAN) IV ONE; -RIVA15TA PO
[2017-07-22] MEDS: CATHETER FLUSH 10 ML SYR IV PRN ×2 (08:31→09:50)
[2017-07-22 09:46] VITALS: BP 194/87
--- NOTE | 2017-07-23 08:47 | STRESS TEST ---
DATE OF SERVICE: 07/22/2017 LEXISCAN MYOVIEW STRESS TEST REPORT REFERRING PHYSICIAN: Baseline heart rate is 93, baseline blood pressure 194/87. Baseline EKG is sinus rhythm with occasional PVCs. SUMMARY: The patient was injected with 10.61 mCi of technetium-99 Myoview and the resting images were obtained. Then, the patient received 0.4 mg of Lexiscan followed by 30.0 mCi of technetium-99 Myoview. Throughout the test, there were no EKG changes. The resting and stress images were reviewed and compared in the short axis, horizontal long axis, and vertical long axis views. Review of the images showed no significant ischemia or infarction on SPECT images. There is mild decreased uptake at the base of the anterior septum. SSS is 4, SDS 1, TID value 1.01. On the gated images, the left ventricle appeared to be prominent with mild diffuse left ventricular hypokinesia, calculated ejection fraction 41%. CONCLUSION: 1. The patient tolerated Lexiscan well. 2. No significant ischemia or infarction on SPECT images. 3. Prominent left ventricle with diffuse left ventricular hypokinesia, calculated ejection fraction 40. Job ID: [id number] DocumentID: [id number] Dictated Date: 07/22/2017 13:47:11 Sound Art Instructor Date: 07/22/2017 20:53:16 Dictated By: RAMY LATHAM MD
== END ==
LOC: CARD 08:06
PROVIDERS: ATTEND Physician Assistant
DX: I25.10 Atherosclerotic heart disease of native coronary artery without angina pectoris (principal); I10 Essential (primary) hypertension; I48.0 Paroxysmal atrial fibrillation; K21.9 Gastro-esophageal reflux disease without esophagitis
CPT/HCPCS: 78452; 93017

== ENCOUNTER 2017-08-27 12:35 | Inpatient (IN) | payer MEDICARE ==
[2017-08-27] VITALS (10 sets, daily range): BP systolic 128–163; BP diastolic 72–97
[~2017-08-27] VITALS: Ht 165.1 cm; Wt 71.4 kg
[~2017-08-27 12:35] MED LIST changes: -METO-272 PO; +METO-370 PO; -REGADENOSON 0.4 MG/5 ML SYR (LEXISCAN) IV ONE
[2017-08-27 13:03] LABS: BASOPHILS % (AUTO) 0 % (0-10); EOSINOPHILS # (AUTO) 0.2 10^3/uL (0.0-0.3); EOSINOPHILS % (AUTO) 2 % (0-10); LYMPHOCYTES # (AUTO) 2.6 X 10^3 (1.0-4.0); LYMPHOCYTES % (AUTO) 31 % (12-44); MEAN CORPUSCULAR HEMOGLOBIN 31 PG (25-34); MEAN CORPUSCULAR HGB CONC 34 G/DL (32-36); MEAN CORPUSCULAR VOLUME 92 FL (80-99); MONOCYTES # (AUTO) 0.7 X 10^3 (0.0-1.0); MONOCYTES % (AUTO) 8 % (0-12); NEUTROPHILS # (AUTO) 5.1 X 10^3 (1.8-7.8); NEUTROPHILS % (AUTO) 59 % (42-75); PLATELET COUNT 201 10^3/uL (130-400); RED BLOOD COUNT 3.63 10^6/uL (4.35-5.85); RED CELL DISTRIBUTION WIDTH 13.1 % (10.0-14.5); WHITE BLOOD COUNT 8.6 10^3/uL (4.3-11.0)
[2017-08-27 13:14] LABS: INR 1.3 (0.8-1.4)
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
[2017-08-27 13:25] LABS: ALANINE AMINOTRANSFERASE 29 U/L (0-55); ALBUMIN 3.8 GM/DL (3.2-4.5); ANION GAP 12 MMOL/L (5-14); ASPARTATE AMINO TRANSFERASE 34 U/L (5-34); BILIRUBIN,TOTAL 0.6 MG/DL (0.1-1.0); BLOOD UREA NITROGEN 18 MG/DL (7-18); BUN/CREATININE RATIO 17; CALCIUM 9.2 MG/DL (8.5-10.1); CARBON DIOXIDE 24 MMOL/L (21-32); CHLORIDE 105 MMOL/L (98-107); CREATININE SERUM 1.09 MG/DL (0.60-1.30); GFR ESTIMATED 48; GLUCOSE 106 MG/DL (70-105); MAGNESIUM 1.6 MG/DL (1.8-2.4); POTASSIUM 3.1 MMOL/L (3.6-5.0); SODIUM 141 MMOL/L (135-145)
[2017-08-27 13:44] LABS: TROPONIN I < 0.30 NG/ML (<0.30)
--- NOTE | 2017-08-27 13:44 | Diagnostic Imaging Report ---
EXAMINATION: Portable erect AP Chest at 1:17 p.m. INDICATION: Shortness of breath. FINDINGS: The mild cardiomegaly, the sternotomy wires and surgical clips, and the chronic pulmonary changes evident on the prior exam of 05/01/2017 are again visualized and no different. There is still no sign of failure, pneumonia, or pleural effusion to suggest an acute abnormality. The mediastinum is not widened. The osseous structures are intact. IMPRESSION: There is no evidence for an acute cardiopulmonary abnormality. Dictated by: Dictated on workstation # [id number]
[2017-08-27] MEDS ORDERED: FUROSEMIDE 40 MG/4 ML INJ (LASIX) ONE (14:02)
[2017-08-27] MEDS ORDERED: FUROSEMIDE 40 MG/4 ML INJ (LASIX) IVP ONE (14:15)
[2017-08-27] MEDS ORDERED: MAGNESIUM OXIDE (MAG-OX)400 MG TAB PO NR (14:45)
[2017-08-27] MEDS ORDERED: INFLUENZA TRIvalent 2017-2018 0.5 ML/45 MCG SYR IM ONE (15:15)
[2017-08-27] MEDS ORDERED: CARB1TAB6 PO (16:12)
--- NOTE | 2017-08-27 16:29 | Diagnostic Imaging Report ---
INDICATION: Dyspnea. EXAMINATION: Ultrasound lower extremity venous, 08/27/2017. TECHNIQUE: Waveform and spectral analysis of the lower extremity venous structures. FINDINGS: There is no evidence for deep vein thrombosis with normal compressibility, augmentation and spontaneity of all visualized venous structures. There is a cystic collection in the posterior right knee, measuring 4 x 1 x 2 cm in size, most likely a slightly complex Maxwell's cyst. This could be followed clinically as warranted. IMPRESSION: No evidence for deep vein thrombosis. Dictated by: Dictated on workstation # [id number]
[2017-08-27] MEDS ORDERED: BISACODYL 5 MG (DULCOLAX) TABLET PO SCH (16:30)
[2017-08-27] MEDS ORDERED: PATIENT MAY USE OWN MEDS, ALL MC SCH (16:30)
[2017-08-27] MEDS ORDERED: metFORMIN XR 500 MG (GLUCOPHAGE XR) TAB PO SCH (17:00)
[2017-08-27] MEDS ORDERED: MAGNESIUM OXIDE (MAG-OX)400 MG TAB PO SCH (18:00)
[2017-08-27] MEDS ORDERED: SINEMET 25/100 (CARBIDOPA/LEVODOPA) TAB PO SCH (21:00)
[2017-08-27] MEDS ORDERED: APIXABAN 5 MG (ELIQUIS) TABLET PO SCH (21:00)
[2017-08-27] MEDS ORDERED: ATORVASTATIN 40 MG (LIPITOR) TABLET PO SCH (21:00)
[2017-08-28] VITALS: BP 145/78
[2017-08-28 04:00] VITALS: BP 128/76
[2017-08-28 05:08] LABS: BASOPHILS % (AUTO) 0 % (0-10); EOSINOPHILS # (AUTO) 0.3 10^3/uL (0.0-0.3); EOSINOPHILS % (AUTO) 3 % (0-10); LYMPHOCYTES # (AUTO) 2.6 X 10^3 (1.0-4.0); LYMPHOCYTES % (AUTO) 30 % (12-44); MEAN CORPUSCULAR HEMOGLOBIN 31 PG (25-34); MEAN CORPUSCULAR HGB CONC 34 G/DL (32-36); MEAN CORPUSCULAR VOLUME 92 FL (80-99); MEAN PLATELET VOLUME 10.8 FL (7.4-10.4); MONOCYTES # (AUTO) 0.7 X 10^3 (0.0-1.0); MONOCYTES % (AUTO) 8 % (0-12); NEUTROPHILS # (AUTO) 5.1 X 10^3 (1.8-7.8); NEUTROPHILS % (AUTO) 58 % (42-75); PLATELET COUNT 185 10^3/uL (130-400); RED BLOOD COUNT 3.58 10^6/uL (4.35-5.85); RED CELL DISTRIBUTION WIDTH 13.1 % (10.0-14.5); WHITE BLOOD COUNT 8.7 10^3/uL (4.3-11.0)
[2017-08-28 05:28] LABS: ALANINE AMINOTRANSFERASE 20 U/L (0-55); ALBUMIN 3.4 GM/DL (3.2-4.5); ANION GAP 11 MMOL/L (5-14); ASPARTATE AMINO TRANSFERASE 29 U/L (5-34); BILIRUBIN,TOTAL 0.8 MG/DL (0.1-1.0); BLOOD UREA NITROGEN 18 MG/DL (7-18); BUN/CREATININE RATIO 19; CALCIUM 8.8 MG/DL (8.5-10.1); CARBON DIOXIDE 27 MMOL/L (21-32); CHLORIDE 104 MMOL/L (98-107); CREATININE SERUM 0.97 MG/DL (0.60-1.30); GFR ESTIMATED 55; GLUCOSE 76 MG/DL (70-105); POTASSIUM 3.1 MMOL/L (3.6-5.0); SODIUM 142 MMOL/L (135-145); TOTAL PROTEIN 6.2 GM/DL (6.4-8.2)
[2017-08-28 05:37] LABS: TROPONIN I < 0.30 NG/ML (<0.30)
[2017-08-28] MEDS ORDERED: GLIMEPIRIDE 2 MG (AMARYL) TAB PO SCH (07:00)
[2017-08-28 08:00] VITALS: BP 165/87
[2017-08-28] MEDS ORDERED: KCL 10 MEQ TAB (MICRO K) PO SCH (08:00)
[2017-08-28] MEDS ORDERED: metFORMIN XR 500 MG (GLUCOPHAGE XR) TAB PO SCH (08:34)
[2017-08-28] MEDS ORDERED: meTOproloL SUCCINATE 50 MG (TOPROL XL) TAB PO SCH (09:00)
[2017-08-28] MEDS ORDERED: FUROSEMIDE 20 MG (LASIX) TAB PO SCH (09:00)
[2017-08-28] MEDS ORDERED: lisINopril 20 MG (ZESTRIL) TAB PO SCH ×2 (09:00)
[2017-08-28] MEDS: GLIMEPIRIDE 2 MG (AMARYL) TAB PO SCH (09:02)
[2017-08-28] MEDS: KCL 10 MEQ TAB (MICRO K) PO SCH (09:03)
[2017-08-28] MEDS: MAGNESIUM OXIDE (MAG-OX)400 MG TAB PO SCH ×2 (09:03→18:01)
[2017-08-28] MEDS: APIXABAN 5 MG (ELIQUIS) TABLET PO SCH ×2 (09:04→22:44)
[2017-08-28] MEDS: FUROSEMIDE 20 MG (LASIX) TAB PO SCH (09:05)
[2017-08-28] MEDS: meTOproloL SUCCINATE 50 MG (TOPROL XL) TAB PO SCH (09:06)
[2017-08-28] MEDS: SINEMET 25/100 (CARBIDOPA/LEVODOPA) TAB PO SCH ×2 (09:06→22:46)
[2017-08-28] MEDS: MULTIVIT W/MINERALS TAB (THERAGRAN M) PO SCH (09:08)
[2017-08-28] MEDS: VITAMIN D3 1,000 UNITS (CHOLECALCIFEROL) TABLET PO SCH (09:10)
[2017-08-28] MEDS ORDERED: KCL 20 MEQ TAB (K-DUR) PO NR (10:30)
[2017-08-28] MEDS ORDERED: FUROSEMIDE 40 MG/4 ML INJ (LASIX) IVP NR (10:30)
--- NOTE | 2017-08-28 10:32 | Consultation-Cardiology ---
HPI-Cardiology Cardiology Consultation Date of Consultation 08/28/17 Date of Admission Time Seen by Provider: 10:27 Indication: shortness of breath HPI 82 years old lady with history of coronary artery disease, hypertension, hyperlipidemia and diabetes mellitus. Has been under significant stress recently, had long trip in a car lasted for 24 hours, [address], her son had bypass surgery and her daughter had a stroke, has been having increasing shortness of breath and cough which has been worsening, or shortness of breath became more significant. Came into the emergency room for evaluation noted to have mild elevation in BNP. She denied chest pain, reported having persistent cough since she started on lisinopril. Denied any fever or chills. No sputum production Home Medications & Allergies Allergies: Coded Allergies: No Known Drug Allergies (Unverified , 04/15/13) Home Medication List Reviewed: Yes GAD-Icryuv-Cfowbv Hx Patient Social History Marital Status: Employed/Student: employed Alcohol Use: Denies Use Recreational Drug Use: No Smoking Status: Never a Smoker 2nd Hand Smoke Exposure: No Recent Foreign Travel: No Recent Infectious Disease Expo: No Recent Hopitalizations: No Physical Abuse Screen: No Sexual Abuse: No Immunizations Up To Date Tetanus Booster (TDap): Unknown Date of Pneumonia Vaccine: Sep 04, 2013 Date of Influenza Vaccine: Nov 17, 2014 Past Medical History past medical history as discussed below Family Medical History Family History: Colon cancer 19 FATHER G8 BROTHER Diabetes mellitus 19 FATHER Hypertension 19 MOTHER Myocardial infarction 19 MOTHER Constitutional: see HPI, malaise, weakness EENTM: see HPI Respiratory: see HPI, cough, dyspnea on exertion, No hemoptysis, No orthopnea, No phlegm, short of breath, No stridor, No wheezing, No other Cardiovascular: see HPI, No chest pain, edema, No Hx of Intervention, No palpitations, No syncope, No vascular heart diseas, No other Gastrointestinal: no symptoms reported, see HPI Genitourinary: no symptoms reported, see HPI Musculoskeletal: no symptoms reported, see HPI, joint pain Skin: no symptoms reported, see HPI Psychiatric/Neurological: No Symptoms Reported, See HPI Reviewed Test Results Reviewed Test Results Lab Laboratory Tests Test 08/27/17 12:54 08/27/17 20:40 08/28/17 05:00 Range/Units White Blood Count 8.6 8.7 4.3-11.0 10^3/uL Red Blood Count 3.63 L 3.58 L 4.35-5.85 10^6/uL Hemoglobin 11.4 L 11.2 L 11.5-16.0 G/DL Hematocrit 34 L 33 L 35-52 % Mean Corpuscular Volume 92 92 80-99 FL Mean Corpuscular Hemoglobin 31 31 25-34 PG Mean Corpuscular Hemoglobin Concent 34 34 32-36 G/DL Red Cell Distribution Width 13.1 13.1 10.0-14.5 % Platelet Count 201 185 130-400 10^3/uL Mean Platelet Volume 11.0 H 10.8 H 7.4-10.4 FL Neutrophils (%) (Auto) 59 58 42-75 % Lymphocytes (%) (Auto) 31 30 12-44 % Monocytes (%) (Auto) 8 8 0-12 % Eosinophils (%) (Auto) 2 3 0-10 % Basophils (%) (Auto) 0 0 0-10 % Neutrophils # (Auto) 5.1 5.1 1.8-7.8 X 10^3 Lymphocytes # (Auto) 2.6 2.6 1.0-4.0 X 10^3 Monocytes # (Auto) 0.7 0.7 0.0-1.0 X 10^3 Eosinophils # (Auto) 0.2 0.3 0.0-0.3 10^3/uL Basophils # (Auto) 0.0 0.0 0.0-0.1 10^3/uL Prothrombin Time 16.0 H 12.2-14.7 SEC INR Comment 1.3 0.8-1.4 Activated Partial Thromboplast Time 33 24-35 SEC Sodium Level 141 142 135-145 MMOL/L Potassium Level 3.1 L 3.1 L 3.6-5.0 MMOL/L Chloride Level 105 104 98-107 MMOL/L Carbon Dioxide Level 24 27 21-32 MMOL/L Anion Gap 12 11 5-14 MMOL/L Blood Urea Nitrogen 18 18 7-18 MG/DL Creatinine 1.09 0.97 0.60-1.30 MG/DL Estimat Glomerular Filtration Rate 48 55 BUN/Creatinine Ratio 17 19 Glucose Level 106 H 76 70-105 MG/DL Calcium Level 9.2 8.8 8.5-10.1 MG/DL Magnesium Level 1.6 L 1.8-2.4 MG/DL Total Bilirubin 0.6 0.8 0.1-1.0 MG/DL Aspartate Amino Transf (AST/SGOT) 34 29 5-34 U/L Alanine Aminotransferase (ALT/SGPT) 29 20 0-55 U/L Alkaline Phosphatase 65 57 40-136 U/L Troponin I < 0.30 < 0.30 < 0.30 <0.30 NG/ML B-Type Natriuretic Peptide 529.6 H 637.6 H <100.0 PG/ML Total Protein 7.0 6.2 L 6.4-8.2 GM/DL Albumin 3.8 3.4 3.2-4.5 GM/DL TSH [place] Testing 2.07 0.35-4.94 UIU/ML Physical Exam Vital Signs Vital Sign - Last 12Hours 08/27/17 12:35 Temp 97.8 Pulse 93 Resp 18 B/P (MAP) 172/107 Pulse Ox 99 O2 Delivery Room Air Capillary Refill : Less Than 3 Seconds General Appearance: No Apparent Distress, WD/WN Eyes: Bilateral Eye Normal Inspection, Bilateral Eye PERRL, Bilateral Eye EOMI HEENT: PERRL/EOMI, TMs Normal, Normal ENT Inspection, Pharynx Normal Neck: Full Range of Motion, Normal Inspection, Non Tender, Supple, Carotid Bruit Respiratory: Chest Non Tender, Normal Breath Sounds, No Accessory Muscle Use, No Respiratory Distress, Crackles Cardiovascular: No Edema, Normal Peripheral Pulses, Systolic Murmur, Gallop/S3 Gastrointestinal: Normal Bowel Sounds, No Organomegaly, No Pulsatile Mass, Non Tender, Soft Back: Normal Inspection, No CVA Tenderness, No Vertebral Tenderness Extremity: Normal Capillary Refill, Normal Inspection, Normal Range of Motion, Non Tender, No Calf Tenderness, No Pedal Edema Neurologic/Psychiatric: Alert, Oriented x3, No Motor/Sensory Deficits, Normal Mood/Affect Skin: Normal Color, Warm/Dry Lymphatic: No Adenopathy A/P-Cardiology Admission Diagnosis Shortness of breath Acute on chronic left ventricular systolic dysfunction, ischemic cardiomyopathy Coronary artery disease Aortic valve stenosis Atrial fibrillation Assessment/Plan Shortness of breath secondary to congestive heart failure, responded to IV Lasix. Feeling significantly better at this time. Continue to monitor. Congestive heart failure, acute on chronic left ventricular systolic dysfunction , ejection fraction on the last echo was 15-20 percent, on a stress test was 40 percent, no ischemia on stress test in June 2017. Continue on Lasix at this time and monitor. The significant deterioration in left ventricular function is probably due to atrial fibrillation. I am planning for JAVID and cardioversion and evaluate the aortic valve in addition due to her extensive coronary artery disease and diabetes mellitus, the deterioration of the left ventricular function could be due to underlying coronary artery disease patient will need a cardiac catheterization in an attempt to initiate antiarrhythmic medication. Coronary artery disease, history of CABG 4 done in November 2014 using KOHLI to the LAD, reverse vein graft to the OM, PDA, reverse vein graft to the diagonal artery, I am considering cardiac catheterization to evaluate her coronary anatomy due to the significant deterioration in left ventricular function Aortic stenosis, valve area 1.05, planning to reevaluate JAVID Paroxysmal atrial fibrillation-had episode of atrial fibrillation April 2017, was hospitalized. Currently on beta [place], Eliquis. [id number] score of 6, yearly risk of stroke without oral anticoagulation is 9.8 percent. Patient is maintained on Eliquis at this time. Severe mitral regurgitation, pulmonary hypertension with PA pressure 55-60 mmHg Hypertension, cough secondary to lisinopril, I will stop lisinopril and use losartan Hyperlipidemia, maintained on Lipitor 40 mg daily, monitor lipids Questionable mild to moderate renal artery stenosis, continue to monitor Diabetes mellitus. Followed and managed by primary care physician History of cataract surgery, hysterectomy. Dental extraction. Nonobstructive carotid artery stenosis-most recent carotid duplex done July 2016. Reevaluate carotid duplex. Clinical Quality Measures DVT/VTE Risk/Contraindication: Risk Factor Score Per Nursin RFS Level Per Nursing on Admit: 3=High RAMY LATHAM MD Aug 28, 2017 10:32
--- NOTE | 2017-08-28 11:55 | History & Physical-Hospitalist ---
HPI History of Present Illness: HPI/Chief Complaint CC: Chest Pain HPI: This is an 82-year-old white female known to Dr. Craig and clinic patient of Dr. Norton's whom I'm covering this weekend that presented to the emergency room with chest pain and palpitations. She is found to have atrial fibrillation with volume overload and elevated BNP and a known cardiac patient with a previous history of two-vessel bypass 2 years ago. She overall felt much better after the ICU stay last night with IV diuresis echocardiogram was evaluated to be 50 percent to couple months ago now it is 30 percent and given that significant depressed systolic function she will undergo a JAVID tomorrow by Dr. Craig then probable catheterization on Thursday to fully risk stratify. At this current time she is taking her medications as she does at home and otherwise is handling the recent of her child well with plenty of family support. 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) Alcohol Use: Denies Use Recreational Drug Use: No Smoking Status: Never a Smoker 2nd Hand Smoke Exposure: No Physical Abuse Screen: No Sexual Abuse: No Recent Foreign Travel: No Contact w/other who traveled: No Recent Hopitalizations: No Recent Infectious Disease Expo: No Immunizations Up To Date Tetanus Booster (TDap): Unknown Date of Pneumonia Vaccine: Sep 04, 2013 Date of Influenza Vaccine: Nov 17, 2014 Seasonal Allergies Seasonal Allergies: No Surgeries Yes (ankle surgery; colonoscopy in 2009, CATARACTS; CARDIAC CATH AND 4 VESSEL CABG 2013) Cardiac, CABG (2014), Eye Surgery, Hysterectomy, Orthopedic, Tonsillectomy Respiratory Yes Asthma Cardiovascular Yes (CHF, RENAL ARTERY STENOSIS, CAROTID BRUIT; 4 VESSEL CABG; NON-COMPLICANCE WITH MEDICATIONS) Atrial Fibrillation, Chronic Edema/Swelling, Coronary Artery Disease, Heart Murmur, High Cholesterol, Hypertension, Irregular Heartbeat, Peripheral Vascular , Valvular Heart Disease Neurological No 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 System Hx 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 Disorders: No Sexually Transmitted Disease: No HIV/AIDS: No 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 Disorders: Denies 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: Hysterectomy, Menopausal Genitourinary Yes (RENAL ARTERY STENT) UTI-Chronic Gastrointestinal Yes Gastroesophageal Reflux, Chronic Constipation Musculoskeletal Yes Arthritis Endocrine History of Endocrine Disorders: Yes (NON-COMPLIANT WITH MEDICATIONS AND NEVER CHECKS BLOOD GLUCOSE) Endocrine Disorders: Diabetes, Non-Insulin dep HEENT History of HEENT Disorders: Yes (S/P CATARACT SURGERY) HEENT Disorders: Cataract Cancer No Psychosocial History of Psychiatric Problem: Yes Behavioral Health Disorders: Anxiety Integumentary History of Skin or Integumenta: No Blood Transfusions History of Blood Disorders: No Family Medical History Family Hx: Colon cancer 19 FATHER G8 BROTHER Diabetes mellitus 19 FATHER Hypertension 19 MOTHER Myocardial infarction 19 MOTHER Review of Systems Constitutional: see HPI EENTM: no symptoms reported Respiratory: short of breath Cardiovascular: palpitations Gastrointestinal: no symptoms reported Genitourinary: no symptoms reported Musculoskeletal: no symptoms reported Skin: no symptoms reported Psychiatric/Neurological: No Symptoms Reported All Other Systems Reviewed Negative Unless Noted: Yes Physical Exam Physical Exam Vital Signs Vital Sign - Last 12Hours 08/27/17 12:35 Temp 97.8 Pulse 93 Resp 18 B/P (MAP) 172/107 Pulse Ox 99 O2 Delivery Room Air Capillary Refill : Less Than 3 Seconds General Appearance: No Apparent Distress, WD/WN, Chronically ill Eyes: Bilateral Eye Normal Inspection, Bilateral Eye PERRL HEENT: PERRL/EOMI, Normal ENT Inspection, Pharynx Normal Neck: Full Range of Motion, Normal Inspection, Non Tender, Supple, Carotid Bruit Respiratory: Chest Non Tender, Lungs Clear, Normal Breath Sounds, No Accessory Muscle Use, No Respiratory Distress Cardiovascular: No Edema, No Gallop, No JVD, No Murmur, Normal Peripheral Pulses, Irregularly Irregular Gastrointestinal: Normal Bowel Sounds, No Organomegaly, No Pulsatile Mass, Non Tender, Soft Back: Normal Inspection, No CVA Tenderness, No Vertebral Tenderness Extremity: Normal Capillary Refill, Normal Inspection, Normal Range of Motion, Non Tender, No Calf Tenderness, No Pedal Edema Neurologic/Psychiatric: Alert, Oriented x3, No Motor/Sensory Deficits, Normal Mood/Affect Skin: Normal Color, Warm/Dry Lymphatic: No Adenopathy Results Results/Procedures Lab Laboratory Tests 08/27/17 12:54 08/28/17 05:00 Assessment/Plan Admission Diagnosis Assessment: New onset atrial fibrillation rate controlled but with volume overload and shortness of breath with hypoxia New-onset of systolic dysfunction with ejection fraction of 50 percent 2 months ago now 30 percent suspicious for ischemic event and cardiomyopathy Previous bypass surgery 2 years ago Diabetes mellitus Hypertensive urgency Assessment and Plan Plan: Restart all home meds except for lisinopril and will hold that changed it to losartan due to recent long-standing cough JAVID tomorrow Cardiac catheterization on Thursday to evaluate ischemic event that is suppressed systolic function Monitor blood sugar Monitor labs IV diuresis Rate control for atrial fibrillation Clinical Quality Measures DVT/VTE Risk/Contraindication: Risk Factor Score Per Nursin RFS Level Per Nursing on Admit: 3=High MAINE DICKEY DO Aug 28, 2017 11:55
[2017-08-28 12:00] VITALS: BP 150/82
[2017-08-28 16:42] VITALS: BP 135/90
[2017-08-28 20:00] VITALS: BP 130/75
[2017-08-28] MEDS: ATORVASTATIN 40 MG (LIPITOR) TABLET PO SCH (22:46)
[2017-08-29] VITALS (25 sets, daily range): BP systolic 128–166; BP diastolic 66–131
[2017-08-29 04:39] LABS: MEAN PLATELET VOLUME 10.7 FL (7.4-10.4); RED BLOOD COUNT 3.6 10^6/uL (4.35-5.85); WHITE BLOOD COUNT 7.7 10^3/uL (4.3-11.0)
[2017-08-29 04:58] LABS: ALBUMIN 3.4 GM/DL (3.2-4.5); BILIRUBIN,TOTAL 0.8 MG/DL (0.1-1.0); CALCIUM 9.3 MG/DL (8.5-10.1); CREATININE SERUM 1.03 MG/DL (0.60-1.30); MAGNESIUM 1.9 MG/DL (1.8-2.4); TOTAL PROTEIN 6.3 GM/DL (6.4-8.2)
[2017-08-29] MEDS ORDERED: LIDOCAINE 2% VISCOUS 15 ML UDC ONE (08:35)
[2017-08-29] MEDS ORDERED: proPOfol 200 MG/20 ML (DIPRIVAN) VIAL IV ONE ×2 (08:44→09:30)
[2017-08-29] MEDS ORDERED: NS IV 1000 ML 1,000 ML ONE (08:46)
--- NOTE | 2017-08-29 08:56 | Cardiac Procedure Note-CS/ASA ---
Pre-Procedure Note Pre-Op Procedure Note H&P Reviewed The H&P was reviewed, patient examined and no changes noted. Date H&P Reviewed: Aug 29, 2017 Time H&P Reviewed: 08:55 Conscious Sedation Pre-Proced Time Reviewed: 08:56 ASA Class: 3 Airway Mallampati Classification: (eagle appropriate class) I. II. III, IV Lungs Heart ASA score ASA 1: a normal healthy patient ASA 2: a patient with a mild systemic disease (mid diabetes, controlled hypertension, obesity x ASA 3: a patient with a severe systemic disease that limits activity (angina , COPD, prior Myocardial infarction) ASA 4: a patient with an incapacitating disease that is a constant threat to life (CHF, renal failure) ASA 5: a moribund patient not expected to survive 24 hrs. (ruptured aneurysm) ASA 6: a declared brain patient whose organs are being harvested. For emergent operations, add the letter E after the classification Grade 3 Sedation Plan: Analgesia, Amnesia, Plan communicated to team members, Discussed options with patient/fam, Discussed risks with patient/fam Note The patient is an appropriate candidate to undergo the planned procedure, sedation, and anesthesia. The patient immediately re-assessed prior to indication. RAMY LATHAM MD Aug 29, 2017 08:56
[2017-08-29] MEDS ORDERED: AMIODARONE INJECTION 450 MG in D5W IV SOLUTION (EXCEL) 250 ML IV SCH (09:15)
[2017-08-29] MEDS ORDERED: LIDOCAINE 2% VISCOUS 15 ML UDC PO NR (09:15)
[2017-08-29] MEDS ORDERED: ENOXAPARIN 100 MG/1 ML (LOVENOX) SYR SC SCH (09:15)
[2017-08-29] MEDS ORDERED: AMIODARONE INJECTION 450 MG in D5W IV SOLUTION (EXCEL) 250 ML IV ONE (09:15)
--- NOTE | 2017-08-29 09:15 | Cardiology Progress Note ---
Subjective Date Seen by Provider: Aug 29, 2017 Time Seen by Provider: 09:12 Subjective/Events-last exam patient is laying down in bed, no new complaint. Still in atrial fibrillation Review of Systems General: No Chills, No Night Sweats, No Fatigue, No Malaise, No Appetite, No Other HEENT: No Head Aches, No Visual Changes, No Eye Pain, No Ear Pain, No Dysphasia , No Sinus Congestion, No Post Nasal Drip, No Sore Throat, No Other Pulmonary: Dyspnea, No Cough, No Pleuritic Chest Pain, No Other Cardiovascular: Palpitations, No: Chest Pain, Orthopnea, Paroxysmal Noc. Dyspnea, Edema, Lt Headedness, Other Objective-Cardiology Exam Last Set of Vital Signs Vital Signs 08/29/17 08:00 Temp 96.9 Pulse 61 Resp 21 B/P (MAP) 158/96 Pulse Ox 99 O2 Delivery Room Air Capillary Refill : Less Than 3 Seconds I&O Intake and Output 08/30/17 00:00 Intake Total 0 ml Output Total 0 ml Balance 0 ml Intake Oral 0 ml Output Urine Total 0 ml General: Alert, Oriented X3, Cooperative HEENT: Atraumatic, PERRLA Neck: Supple, No JVD, No Thyromegaly Lungs: Clear to Auscultation, Normal Air Movement Heart: Normal S1, Normal S2, Other (irregular, systolic murmur at the left sternal border) Abdomen: Normal Bowel Sounds, Soft, No Tenderness, No Hepatosplenomegaly, No Masses Extremities: No Clubbing, No Cyanosis, No Edema, Normal Pulses, No Tenderness/ Swelling Skin: No Rashes, No Breakdown, No Significant Lesion Neuro: Normal Gait, Normal Speech, Normal Tone, Sensation Intact Psych/Mental Status: Mental Status NL, Mood NL Results Lab Laboratory Tests 08/29/17 04:24 A/P-Cardiology Admission Diagnosis Shortness of breath Acute on chronic left ventricular systolic dysfunction, ischemic cardiomyopathy Coronary artery disease Aortic valve stenosis Atrial fibrillation Assessment/Plan Shortness of breath secondary to congestive heart failure, responded to IV Lasix , continue to monitor Congestive heart failure, acute on chronic left ventricular systolic dysfunction , ejection fraction on the last echo was 15-20 percent, on a stress test was 40 percent, no ischemia on stress test in June 2017. The significant deterioration in left ventricular function is probably due to atrial fibrillation. JAVID was done showing ejection fraction 20-25 percent, severe mitral regurgitation, aortic valve sclerosis, underwent cardioversion which failed to maintain sinus rhythm, I will use Lovenox now and start amiodarone drip, planning for cardiac catheterization tomorrow Coronary artery disease, history of CABG 4 done in November 2014 using KOHLI to the LAD, reverse vein graft to the OM, PDA, reverse vein graft to the diagonal artery, planning for left heart catheterization to evaluate her coronary anatomy due to the significant deterioration in the left ventricular function Aortic stenosis, on JAVID it appeared that she has aortic valve sclerosis, the valve is opening normally. Paroxysmal atrial fibrillation-had episode of atrial fibrillation April 2017, I will start her on amiodarone and evaluate her tolerance and response [id number] score of 6, yearly risk of stroke without oral anticoagulation is 9.8 percent. Patient is maintained on Eliquis Severe mitral regurgitation, pulmonary hypertension with PA pressure 55-60 mmHg Hypertension, cough secondary to lisinopril, I will stop lisinopril and use losartan Hyperlipidemia, maintained on Lipitor 40 mg daily, monitor lipids Questionable mild to moderate renal artery stenosis, continue to monitor Diabetes mellitus. Followed and managed by primary care physician History of cataract surgery, hysterectomy. Dental extraction. Nonobstructive carotid artery stenosis-most recent carotid duplex done July 2016. Reevaluate carotid duplex. Clinical Quality Measures DVT/VTE Risk/Contraindication: Risk Factor Score Per Nursin RFS Level Per Nursing on Admit: 3=High RAMY LATHAM MD Aug 29, 2017 09:15
--- NOTE | 2017-08-29 09:17 | Cardiac Procedure Note ---
Cardiology Procedures Date of Procedure 08/29/17 BRIEF HISTORY: The patient is a 82 female with history of coronary artery disease severe cardiomyopathy, underwent JAVID which showed ejection fraction 20-25 percent with severe mitral regurgitation, no left atrial thrombus PROCEDURE NOTE: After explaining the procedure to the patient, all pros and cons were explained. The patient was sedated with assistance of anesthesia, DC cardioversion was delivered with 120 J, patient converted to sinus rhythm for few seconds then returned to atrial fibrillation. CONCLUSION: Failed electrical cardioversion in maintaining sinus rhythm, I will start amiodarone drip and planning to repeat cardioversion RAMY LATHAM MD Aug 29, 2017 09:17
--- NOTE | 2017-08-29 09:17 | Anesthesia-Procedure Note ---
Procedure Start/Stop Time Date of Procedure: Aug 29, 2017 Start Time: 09:05 Stop Time: 09:15 Procedures/Interventions Procedures Called to sedate patient for JAVID/Cardioversion. Chart reviewed, patient ASA 3. A total of 130mg of propofol was given during procedure. Vital signs monitored and airway patient. Patient tolerated well and care returned to RN. ROSA TINSLEY CRNA Aug 29, 2017 09:17
[2017-08-29] MEDS: ENOXAPARIN 80 MG/0.8 ML (LOVENOX) SYR SC SCH ×2 (10:39→20:51)
--- NOTE | 2017-08-29 12:21 | Progress Note-Hospitalist ---
Progress Note HPI/CC on Admission CC: Chest Pain HPI: This is an 82-year-old white female known to Dr. Craig and clinic patient of Dr. Norton's whom I'm covering this weekend that presented to the emergency room with chest pain and palpitations. She is found to have atrial fibrillation with volume overload and elevated BNP and a known cardiac patient with a previous history of two-vessel bypass 2 years ago. She overall felt much better after the ICU stay last night with IV diuresis echocardiogram was evaluated to be 50 percent to couple months ago now it is 30 percent and given that significant depressed systolic function she will undergo a JAVID tomorrow by Dr. Craig then probable catheterization on Thursday to fully risk stratify. At this current time she is taking her medications as she does at home and otherwise is handling the recent of her child well with plenty of family support. Progress Notes/Assess & Plan Date Seen 08/29/17 Time Seen by Provider: 11:30 Admission Dx/Process Assessment: New onset atrial fibrillation rate controlled but with volume overload and shortness of breath with hypoxia New-onset of systolic dysfunction with ejection fraction of 50 percent 2 months ago now 30 percent suspicious for ischemic event and cardiomyopathy Previous bypass surgery 2 years ago Diabetes mellitus Hypertensive urgency Diagonsis/Assessment & Plan Patient had an uncomplicated JAVID and cardioversion and currently in NSR on Amiodarone Pt sleepy and daughter at the bedside Reviewed labs and meds AFVSS, pleasant but sleepy from procedure RRR, CTAB No edema Laboratory Tests 08/29/17 04:24 Assessment: New onset atrial fibrillation rate controlled but with volume overload and shortness of breath with hypoxia s/p JAVID and cardioversion and placed on Amiodarone to maintain NSR New-onset of systolic dysfunction with ejection fraction of 50 percent 2 months ago now 30 percent suspicious for ischemic event and cardiomyopathy so will have cath tomorrow Previous bypass surgery 2 years ago Diabetes mellitus Hypertensive urgency Plan: Restarted all home meds except for lisinopril and will hold that changed it to losartan due to recent long-standing cough Cath tomorrow to evaluate ischemic event that is suppressed systolic function Monitor blood sugar Monitor labs IV diuresis TEQUILA FERNANDEZ DO Aug 29, 2017 12:21
[2017-08-29] MEDS: KCL 10 MEQ TAB (MICRO K) PO SCH (13:05)
[2017-08-29] MEDS: FUROSEMIDE 20 MG (LASIX) TAB PO SCH (13:05)
[2017-08-29] MEDS: MAGNESIUM OXIDE (MAG-OX)400 MG TAB PO SCH ×2 (13:06→17:27)
[2017-08-29] MEDS: MULTIVIT W/MINERALS TAB (THERAGRAN M) PO SCH (13:08)
[2017-08-29] MEDS: SINEMET 25/100 (CARBIDOPA/LEVODOPA) TAB PO SCH ×2 (13:09→20:52)
[2017-08-29] MEDS: GLIMEPIRIDE 2 MG (AMARYL) TAB PO SCH (13:13)
[2017-08-29] MEDS: meTOproloL SUCCINATE 50 MG (TOPROL XL) TAB PO SCH (13:15)
[2017-08-29] MEDS: VITAMIN D3 1,000 UNITS (CHOLECALCIFEROL) TABLET PO SCH (13:19)
[2017-08-29] MEDS: LOSARTAN 25 MG (COZAAR) TAB PO SCH (13:19)
[2017-08-29] MEDS ORDERED: NITROGLYCERIN 0.4 MG SL TABS BTL 25'S SL ONE (18:45)
[2017-08-29] MEDS: AMIODARONE 200 MG (CORDARONE) TAB PO SCH (20:52)
[2017-08-29] MEDS: ATORVASTATIN 40 MG (LIPITOR) TABLET PO SCH (20:52)
[2017-08-29] MEDS ORDERED: ANTACID SUSP 30 ML UDC (MYLANTA) ONE (22:21)
[2017-08-30] VITALS (22 sets, daily range): BP systolic 123–162; BP diastolic 71–119
[2017-08-30] MEDS ORDERED: ANTACID SUSP 30 ML UDC (MYLANTA) PO PRN (00:15)
[2017-08-30] MEDS ORDERED: NITROGLYCERIN 0.4 MG SL TABS BTL 25'S SL PRN (00:15)
[2017-08-30 04:28] LABS: BASOPHILS % (AUTO) 0 % (0-10); EOSINOPHILS # (AUTO) 0.1 10^3/uL (0.0-0.3); EOSINOPHILS % (AUTO) 2 % (0-10); LYMPHOCYTES # (AUTO) 1.8 X 10^3 (1.0-4.0); LYMPHOCYTES % (AUTO) 23 % (12-44); MEAN CORPUSCULAR HEMOGLOBIN 31 PG (25-34); MEAN CORPUSCULAR HGB CONC 33 G/DL (32-36); MEAN CORPUSCULAR VOLUME 92 FL (80-99); MEAN PLATELET VOLUME 11.4 FL (7.4-10.4); MONOCYTES # (AUTO) 0.5 X 10^3 (0.0-1.0); MONOCYTES % (AUTO) 6 % (0-12); NEUTROPHILS # (AUTO) 5.6 X 10^3 (1.8-7.8); NEUTROPHILS % (AUTO) 69 % (42-75); PLATELET COUNT 209 10^3/uL (130-400); RED BLOOD COUNT 3.79 10^6/uL (4.35-5.85); RED CELL DISTRIBUTION WIDTH 12.9 % (10.0-14.5); WHITE BLOOD COUNT 8.1 10^3/uL (4.3-11.0)
[2017-08-30 04:46] LABS: ANION GAP 11 MMOL/L (5-14); BLOOD UREA NITROGEN 17 MG/DL (7-18); BUN/CREATININE RATIO 13; CALCIUM 9.3 MG/DL (8.5-10.1); CARBON DIOXIDE 26 MMOL/L (21-32); CHLORIDE 96 MMOL/L (98-107); CREATININE SERUM 1.31 MG/DL (0.60-1.30); GFR ESTIMATED 39; GLUCOSE 201 MG/DL (70-105); PHOSPHORUS 3.5 MG/DL (2.3-4.7); SODIUM 133 MMOL/L (135-145)
[2017-08-30 04:58] LABS: TROPONIN I < 0.30 NG/ML (<0.30)
[2017-08-30] MEDS: MULTIVIT W/MINERALS TAB (THERAGRAN M) PO SCH ×2 (06:22→14:18)
[2017-08-30] MEDS: GLIMEPIRIDE 2 MG (AMARYL) TAB PO SCH ×2 (06:22→14:20)
[2017-08-30] MEDS ORDERED: fentaNYL INJECTION 100 MCG/2 ML AMP ONE (08:07)
[2017-08-30] MEDS ORDERED: MIDAZOLAM 2 MG/2 ML (VERSED) VIAL ONE (08:07)
[2017-08-30] MEDS ORDERED: HEParin 1000 UNIT/ML (10ML VIAL) FOR BOLUS ONE (08:13)
[2017-08-30] MEDS ORDERED: NS IV 1000 ML 3,000 ML ONE (08:13)
--- NOTE | 2017-08-30 08:21 | Diagnostic Imaging Report ---
INDICATION: Chronic atrial fibrillation. FINDINGS: Upright portable chest shows heart size to be upper normal. Vascularity is upper normal. No infiltrates or effusions are seen. There are changes of prior CABG. IMPRESSION: There has been slight increase in pulmonary vascularity otherwise chest is similar to 08/27/2017 study. Dictated by: Dictated on workstation # [id number]
--- NOTE | 2017-08-30 09:03 | Cardiac Procedure Note-CS/ASA ---
Pre-Procedure Note Pre-Op Procedure Note H&P Reviewed The H&P was reviewed, patient examined and no changes noted. Date H&P Reviewed: Aug 30, 2017 Time H&P Reviewed: 09:03 Conscious Sedation Pre-Proced Time Reviewed: 09:03 ASA Class: 3 Airway Mallampati Classification: (kaltag appropriate class) I. II. III, IV Lungs Heart ASA score ASA 1: a normal healthy patient ASA 2: a patient with a mild systemic disease (mid diabetes, controlled hypertension, obesity x ASA 3: a patient with a severe systemic disease that limits activity (angina , COPD, prior Myocardial infarction) ASA 4: a patient with an incapacitating disease that is a constant threat to life (CHF, renal failure) ASA 5: a moribund patient not expected to survive 24 hrs. (ruptured aneurysm) ASA 6: a declared brain patient whose organs are being harvested. For emergent operations, add the letter E after the classification Grade 3 Sedation Plan: Analgesia, Amnesia, Plan communicated to team members, Discussed options with patient/fam, Discussed risks with patient/fam Note The patient is an appropriate candidate to undergo the planned procedure, sedation, and anesthesia. The patient immediately re-assessed prior to indication. RAMY LATHAM MD Aug 30, 2017 09:03
[2017-08-30] MEDS ORDERED: ENOXAPARIN 100 MG/1 ML (LOVENOX) SYR ONE (09:12)
[2017-08-30] MEDS ORDERED: NITROGLYCERIN DRIP 25 MG/D5W 250 ML IV ONE (09:19)
[2017-08-30] MEDS ORDERED: NS IV 1000 ML 1,000 ML IV SCH (09:45)
[2017-08-30] MEDS ORDERED: CLOPIDOGREL 300 MG (PLAVIX) TABLET PO ONE (09:49)
[2017-08-30] MEDS ORDERED: ASPIRIN 81 MG CHEW (CHILDREN'S ASA) ONE (09:50)
[2017-08-30] MEDS ORDERED: PATIENT MAY USE OWN MEDS, ALL PO SCH (10:00)
--- NOTE | 2017-08-30 10:10 | Cardiac Cath Report ---
Cardiac Cath Report Physician (s)/[employer] Financial Services (s) Physician RAMY LATHAM MD Pre-Procedure Diagnosis Pre-Procedure Diagnosis: coronary artery disease, congestive heart failure Post-Procedure Note Procedure Start Date: Aug 30, 2017 Name of Procedure: Left heart catheterization Aortic arch angiogram Vein graft angiogram, KOHLI angiogram Stent to the right coronary artery Findings/Procedure Note PROCEDURE NOTE: After explaining the procedure to the patient, all pros and cons were explained, all questions were answered. The patient signed the consent and then she was placed on the cardiac catheterization laboratory. The patient was placed on the cardiac catheterization laboratory. Groin was prepped SL fashion local anesthesia was used. Sheath placed in the artery. Sneha right and left catheter were used to access the coronary system. Vein Graft evaluated. KOHLI evaluated. Pigtail was used to access the left ventricular cavity. Left ventriculogram was not done Aortic arch angiogram was done I proceeded with advancement of FR guide, 50 mg of IV Lovenox were given, BMW wire was parked in the distal right coronary artery patient had multiple lesion in the right coronary artery, predilatation with 2.520 mm balloon was done, multiple resistant lesions especially the ostial right coronary artery stenosis , I was unable to advance the stent initially then after multiple dilated patient I was able to improve the lesion. I proceeded with placement of XIENCE ALPINE 2.7528 in the mid right coronary artery expanded to 2.95 and 3.012 mm at the ostial right coronary artery expanded to 3.25 mm with excellent results. distal right coronary artery has 60 percent stenosis at the bifurcation site small segment and small artery. Will be treated medically At the end of the procedure the sheath was removed. Closure device was used FINDINGS: Hemodynamics LV 132/9, end-diastolic pressure of 9 Aorta 133/56 mean of 82 ANATOMY: Left Main aneurysmal dilatation and 60 percent ostial stenosis Left Anterior Descending is occluded at the midportion with patent KOHLI to LAD with competitive flow, the diagonal artery is occluded and the vein graft to the diagonal artery is occluded Left Circumflex has 70 percent stenosis at the midportion with occluded vein graft to the circumflex artery/OM system Right Coronory Artery has multiple segment of severe stenosis, the vein graft to the right coronary artery is occluded, complex intervention with deployment of 2 stents XIENCE ALPINE 2.7528 mm expanded to 2.95 at the mid section and 3.0 12 mm expanded to 3.25 at the ostium of the right coronary artery, distal right coronary artery has 60 percent stenosis at the bifurcation point with small vessel disease distally treated medically KOHLI to LAD is patent Vein Graft there are 3 vein graft that are known to be to the right PDA, diagonal and obtuse marginal branch and the 3 vein grafts are occluded LV Gram was not done, pressure was measured Aorta evaluation with aortic arch angiogram that showed atherosclerotic disease involving the great neck vessels, no dissection or aneurysm, no vein grafts were seen CONCLUSION: 1. Occluded 3 vein graft known to be to the right coronary artery, obtuse marginal and diagonal artery. 2. Patent KOHLI to LAD 3. 70 percent stenosis in the mid circumflex artery that need to be addressed at a later point 4. 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 Occluded vein graft to the right coronary artery with severe disease at the right coronary artery, complex intervention using 2 stents XIENCE ALPINE 2.75 x 28 expanded to 2.95 in the mid right coronary artery and 3.012 mm expanded to 3.25 at the ostial right coronary artery with excellent results. Distal right coronary artery has 60 percent stenosis at the bifurcation point with small vessel disease beyond that that will be treated medically DISCUSSION AND RECOMMENDATION: Patient has severe ischemic cardiomyopathy, I will continue maximizing medical therapy and correct her underlying coronary anatomy, the right coronary artery has been treated, the circumflex artery will be addressed at the later point due to her underlying renal function meanwhile patient will be treated with aspirin, Plavix and Coumadin due to her underlying atrial fibrillation and severe congestive heart failure Anesthesia Type: Conscious Sedation Estimated blood loss (mL): 10 ml Contrast Amount: 98 ml Total Radiation Dose: 1474 mGy Post-Procedure Diagnosis Post-operative diagnosis: coronary artery disease Congestive heart failure Paroxysmal atrial fibrillation Hypertension RAMY LATHAM MD Aug 30, 2017 10:10
--- NOTE | 2017-08-30 10:25 | Cardiology Progress Note ---
Subjective Date Seen by Provider: Aug 30, 2017 Time Seen by Provider: 10:18 Subjective/Events-last exam patient is laying down in bed, feeling better, had an episode of chest pain yesterday. Groin is healing well. I explained the management plan and her condition to her family and her went into details about the management plan for the long-term. It appear that she has converted to sinus rhythm Review of Systems General: No Chills, No Night Sweats, No Fatigue, No Malaise, No Appetite, No Other HEENT: No Head Aches, No Visual Changes, No Eye Pain, No Ear Pain, No Dysphasia , No Sinus Congestion, No Post Nasal Drip, No Sore Throat, No Other Pulmonary: Dyspnea, No Cough, No Pleuritic Chest Pain, No Other Cardiovascular: Chest Pain, No: Palpitations, Orthopnea, Paroxysmal Noc. Dyspnea, Edema, Lt Headedness, Other Objective-Cardiology Exam Last Set of Vital Signs Vital Signs Capillary Refill : Less Than 3 Seconds I&O Intake and Output 08/31/17 00:00 Intake Total 0 ml Output Total 300 ml Balance -300 ml Intake Oral 0 ml Output Urine Total 300 ml General: Alert, Oriented X3, Cooperative HEENT: Atraumatic, PERRLA Neck: Supple, No JVD, No Thyromegaly Lungs: Clear to Auscultation, Normal Air Movement Heart: Regular Rate, Normal S1, Normal S2 Abdomen: Normal Bowel Sounds, Soft, No Tenderness, No Hepatosplenomegaly, No Masses Extremities: No Clubbing, No Cyanosis, No Edema, Normal Pulses, No Tenderness/ Swelling Skin: No Rashes, No Breakdown, No Significant Lesion Neuro: Normal Speech, Normal Tone, Sensation Intact Psych/Mental Status: Mental Status NL, Mood NL Results Lab Laboratory Tests 08/30/17 03:57 A/P-Cardiology Admission Diagnosis Shortness of breath Acute on chronic left ventricular systolic dysfunction, ischemic cardiomyopathy Coronary artery disease Aortic valve stenosis Atrial fibrillation Assessment/Plan Shortness of breath secondary to congestive heart failure, reporting improvement at this time. Next Chest pain, resembling angina, had an episode yesterday, responded to sublingual nitroglycerin. Congestive heart failure, acute on chronic left ventricular systolic dysfunction , Ischemic cardiomyopathy, ejection fraction on the last echo was 15-20 percent , underwent angioplasty and stent to the right coronary artery, cardiac catheterization results are discussed below Coronary artery disease, history of CABG 4 done in November 2014 using KOHLI to the LAD, reverse vein graft to the OM, PDA, reverse vein graft to the diagonal artery, cardiac catheterization was done earlier today resulted with 2 stents to the right coronary artery 1. Occluded 3 vein graft known to be to the right coronary artery, obtuse marginal and diagonal artery. 2. Patent KOHLI to LAD 3. 70 percent stenosis in the mid circumflex artery that need to be addressed at a later point 4. 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 Occluded vein graft to the right coronary artery with severe disease at the right coronary artery, complex intervention using 2 stents XIENCE ALPINE 2.75 x 28 expanded to 2.95 in the mid right coronary artery and 3.012 mm expanded to 3.25 at the ostial right coronary artery with excellent results. Distal right coronary artery has 60 percent stenosis at the bifurcation point with small vessel disease beyond that that will be treated medically Aortic stenosis, on JAVID it appeared that she has aortic valve sclerosis, was able to cross the valve easily with the catheter and there was no significant gradient across the aortic valve Paroxysmal atrial fibrillation-had episode of atrial fibrillation April 2017, converted to sinus rhythm on amiodarone, patient will be on aspirin, Plavix and Coumadin, monitor INR [id number] score of 6, yearly risk of stroke without oral anticoagulation is 9.8 percent. I started her on Coumadin with aspirin and Plavix. Monitor INR Severe mitral regurgitation, pulmonary hypertension with PA pressure 55-60 mmHg Hypertension, cough secondary to lisinopril, tolerating losartan well, I will start her on Entresto tomorrow Hyperlipidemia, maintained on Lipitor 40 mg daily, monitor lipids Questionable mild to moderate renal artery stenosis, continue to monitor Diabetes mellitus. Followed and managed by primary care physician History of cataract surgery, hysterectomy. Dental extraction. Nonobstructive carotid artery stenosis-most recent carotid duplex done July 2016. Reevaluate carotid duplex. Clinical Quality Measures DVT/VTE Risk/Contraindication: Risk Factor Score Per Nursin RFS Level Per Nursing on Admit: 3=High RAMY LATHAM MD Aug 30, 2017 10:25
--- NOTE | 2017-08-30 11:43 | Progress Note-Hospitalist ---
Progress Note HPI/CC on Admission CC: Chest Pain HPI: This is an 82-year-old white female known to Dr. Craig and clinic patient of Dr. Norton's whom I'm covering this weekend that presented to the emergency room with chest pain and palpitations. She is found to have atrial fibrillation with volume overload and elevated BNP and a known cardiac patient with a previous history of two-vessel bypass 2 years ago. She overall felt much better after the ICU stay last night with IV diuresis echocardiogram was evaluated to be 50 percent to couple months ago now it is 30 percent and given that significant depressed systolic function she will undergo a JAVID tomorrow by Dr. Craig then probable catheterization on Thursday to fully risk stratify. At this current time she is taking her medications as she does at home and otherwise is handling the recent of her child well with plenty of family support. Progress Notes/Assess & Plan Date Seen 08/30/17 Time Seen by Provider: 11:00 Admission Dx/Process Assessment: New onset atrial fibrillation rate controlled but with volume overload and shortness of breath with hypoxia New-onset of systolic dysfunction with ejection fraction of 50 percent 2 months ago now 30 percent suspicious for ischemic event and cardiomyopathy Previous bypass surgery 2 years ago Diabetes mellitus Hypertensive urgency Diagonsis/Assessment & Plan Patient had an uncomplicated cardiac cath today which revealed stenosis of RCA stent so that was ballooned and will need circumflex next in 2 weeks, delayed due to contrast load Creat increased to 1.3 so will monitor closely Grafts are all shut down, very severe CAD rapidly progressive since CABG 2 yrs ago Pt sleepy and daughter at the bedside Reviewed labs and meds AFVSS, pleasant but sleepy from procedure RRR, CTAB No edema Laboratory Tests 08/30/17 03:57 Assessment: New onset atrial fibrillation rate controlled but with volume overload and shortness of breath with hypoxia s/p JAVID and cardioversion and placed on Amiodarone to maintain NSR New-onset of systolic dysfunction with ejection fraction of 50 percent 2 months ago now 30 percent s/p balloon stent of RCA and needs circumflex in 2 weeks b/c contrast load Previous bypass surgery 2 years ago with three grafts shut down Diabetes mellitus Hypertensive urgency 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
[2017-08-30] MEDS: ENOXAPARIN 80 MG/0.8 ML (LOVENOX) SYR SC SCH (12:37)
[2017-08-30] MEDS: NS IV 1000 ML 1,000 ML IV SCH ×2 (12:37→19:57)
[2017-08-30] MEDS: meTOproloL SUCCINATE 50 MG (TOPROL XL) TAB PO SCH (12:39)
[2017-08-30] MEDS: VITAMIN D3 1,000 UNITS (CHOLECALCIFEROL) TABLET PO SCH (14:18)
[2017-08-30] MEDS: LOSARTAN 25 MG (COZAAR) TAB PO SCH (14:18)
[2017-08-30] MEDS: AMIODARONE 200 MG (CORDARONE) TAB PO SCH ×2 (14:18→20:37)
[2017-08-30] MEDS: SINEMET 25/100 (CARBIDOPA/LEVODOPA) TAB PO SCH ×2 (14:19→20:38)
[2017-08-30] MEDS: MAGNESIUM OXIDE (MAG-OX)400 MG TAB PO SCH ×2 (14:19→18:26)
[2017-08-30] MEDS: KCL 10 MEQ TAB (MICRO K) PO SCH (14:21)
[2017-08-30] MEDS: FUROSEMIDE 20 MG (LASIX) TAB PO SCH (14:21)
[2017-08-30 15:50] LABS: BILIRUBIN,URINE NEGATIVE (NEGATIVE); KETONES,URINE NEGATIVE (NEGATIVE); LEUKOCYTE ESTERASE ,URINE 1+ (NEGATIVE); NITRITE,URINE NEGATIVE (NEGATIVE); PH,URINE 5 (5-9); PROTEIN,URINE 1+ (NEGATIVE); UROBILINOGEN,URINE NORMAL (NORMAL)
[2017-08-30] MEDS ORDERED: BISACODYL 5 MG (DULCOLAX) TABLET PO SCH (16:30)
[2017-08-30] MEDS: PHENAZOPYRIDINE 100 MG (PYRIDIUM) TABLET PO SCH (16:44)
[2017-08-30] MEDS ORDERED: PHENAZOPYRIDINE 100 MG (PYRIDIUM) TABLET PO SCH (18:00)
[2017-08-30] MEDS ORDERED: warFARin 5 MG (COUMADIN) TAB PO SCH (18:00)
[2017-08-30] MEDS: ATORVASTATIN 40 MG (LIPITOR) TABLET PO SCH (20:39)
[2017-08-30] MEDS ORDERED: ENOXAPARIN 80 MG/0.8 ML (LOVENOX) SYR SC SCH (21:30)
[2017-08-31] VITALS: BP 145/88
[2017-08-31 04:00] VITALS: BP 155/84
[2017-08-31 05:28] LABS: BASOPHILS % (AUTO) 0 % (0-10); EOSINOPHILS # (AUTO) 0.1 10^3/uL (0.0-0.3); EOSINOPHILS % (AUTO) 1 % (0-10); LYMPHOCYTES # (AUTO) 1.9 X 10^3 (1.0-4.0); LYMPHOCYTES % (AUTO) 20 % (12-44); MEAN CORPUSCULAR HEMOGLOBIN 31 PG (25-34); MEAN CORPUSCULAR HGB CONC 34 G/DL (32-36); MEAN CORPUSCULAR VOLUME 92 FL (80-99); MONOCYTES # (AUTO) 0.5 X 10^3 (0.0-1.0); MONOCYTES % (AUTO) 6 % (0-12); NEUTROPHILS # (AUTO) 6.7 X 10^3 (1.8-7.8); NEUTROPHILS % (AUTO) 73 % (42-75); PLATELET COUNT 187 10^3/uL (130-400); RED BLOOD COUNT 3.62 10^6/uL (4.35-5.85); RED CELL DISTRIBUTION WIDTH 12.9 % (10.0-14.5); WHITE BLOOD COUNT 9.2 10^3/uL (4.3-11.0)
[2017-08-31 05:37] LABS: INR 1.2 (0.8-1.4); PROTHROMBIN TIME PATIENT 15.5 SEC (12.2-14.7)
[2017-08-31 05:44] LABS: CALCIUM 9.3 MG/DL (8.5-10.1); CREATININE SERUM 1.2 MG/DL (0.60-1.30); MAGNESIUM 2.1 MG/DL (1.8-2.4); PHOSPHORUS 3.4 MG/DL (2.3-4.7); POTASSIUM 4.4 MMOL/L (3.6-5.0)
[2017-08-31] MEDS: NS IV 1000 ML 1,000 ML IV SCH (05:57)
[2017-08-31] MEDS: GLIMEPIRIDE 2 MG (AMARYL) TAB PO SCH (06:56)
[2017-08-31] MEDS: MULTIVIT W/MINERALS TAB (THERAGRAN M) PO SCH (06:56)
--- NOTE | 2017-08-31 07:22 | Pulmonary Consultation ---
History of Present Illness History of Present Illness Date of Consultation 08/31/17 07:17 Time Seen by Provider: 07:17 Date of Admission Reason for Visit: shortness of breath History of Present Illness 82yo with hx of CAD and CABG patient presented to ED secondary to acute onset of CP and palpitations. SHe was found to have afib and pulmonary edema. She is s /p heart cath. Pt has severe cardiomyopathy with EF 15-20%. Pt is feeling improved and is anxious to go home. I am consulted for pulmonary management. Allergies and Home Medications Allergies Coded Allergies: No Known Drug Allergies (Unverified , 04/15/13) Home Medications Apixaban 5 Mg Tablet, 5 MG PO BID, #60 Prescribed by: MI DENG on 04/24/17 1208 Atorvastatin Calcium 40 Mg Tablet, 40 MG PO HS, (Reported) Bisacodyl 5 Mg Tablet.dr, 15 MG PO Q72H, (Reported) Carbidopa/Levodopa 1 Each Tablet, 25-100 MG PO BID, (Reported) Cholecalciferol (Vitamin D3) 1,000 Unit Tablet, 1,000 UNIT PO DAILY, (Reported) Furosemide 20 Mg Tablet, 20 MG PO DAILY, (Reported) Glimepiride 2 Mg Tablet, 2 MG PO DAILY, (Reported) Lisinopril 20 Mg Tablet, 20 MG PO DAILY, (Reported) Magnesium Oxide 250 Mg Tablet, 250 MG PO BID, (Reported) Metformin Hcl 500 Mg Tab.sr.24h, 500 MG PO BID WITH MEALS, (Reported) Metoprolol Succinate 50 Mg Tab.er.24h, 50 MG PO DAILY, #30 Prescribed by: MI DENG on 04/24/17 1208 Multivitamin 1 Each Tablet, 1 TAB PO DAILY, (Reported) Potassium Chloride 10 Meq Tablet.er, 10 MEQ PO DAILY, (Reported) Past Emkwcqw-Zdjwrq-Rfealg Hx Patient Social History Alcohol Use: Denies Use Recreational Drug Use: No Smoking Status: Never a Smoker 2nd Hand Smoke Exposure: No Recent Foreign Travel: No Contact w/Someone Who Travel: No Recent Infectious Disease Expo: No Recent Hopitalizations: No Immunizations Up To Date Tetanus Booster (TDap): Unknown Date of Pneumonia Vaccine: Sep 04, 2013 Date of Influenza Vaccine: Nov 17, 2014 Seasonal Allergies Seasonal Allergies: No Surgeries History of Surgeries: Yes (ankle surgery; colonoscopy in 2009, CATARACTS; CARDIAC CATH AND 4 VESSEL CABG 2013) Surgeries: Cardiac, CABG (2014), Eye Surgery, Hysterectomy, Orthopedic, Tonsillectomy Respiratory History of Respiratory Disorde: Yes Respiratory Disorders: Pneumonia Cardiovascular History of Cardiac Disorders: Yes (CHF, RENAL ARTERY STENOSIS, CAROTID BRUIT; 4 VESSEL CABG; NON-COMPLICANCE WITH MEDICATIONS) Cardiac Disorders: Atrial Fibrillation, Chronic Edema/Swelling, Coronary Artery Disease, Heart Murmur, High Cholesterol, Hypertension, Irregular Heartbeat, Peripheral Vascular, Valvular Heart Disease Neurological History of Neurological Disord: No 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 System Hx 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 Disorders: No Sexually Transmitted Disease: No HIV/AIDS: No 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 Disorders: Denies 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: Hysterectomy, Menopausal Genitourinary History of Genitourinary Disor: Yes (RENAL ARTERY STENT) Genitourinary Disorders: UTI-Chronic Gastrointestinal History of Gastrointestinal Di: Yes Gastrointestinal Disorders: Gastroesophageal Reflux, Chronic Constipation Musculoskeletal History of Musculoskeletal Dis: Yes Musculoskeletal Disorders: Arthritis Endocrine History of Endocrine Disorders: Yes (NON-COMPLIANT WITH MEDICATIONS AND NEVER CHECKS BLOOD GLUCOSE) Endocrine Disorders: Diabetes, Non-Insulin dep HEENT History of HEENT Disorders: Yes (S/P CATARACT SURGERY) HEENT Disorders: Cataract Cancer History of Cancer: No Psychosocial History of Psychiatric Problem: Yes Behavioral Health Disorders: Anxiety Integumentary History of Skin or Integumenta: No Blood Transfusions History of Blood Disorders: No Family Medical History Family Medial History: Colon cancer 19 FATHER G8 BROTHER Diabetes mellitus 19 FATHER Hypertension 19 MOTHER Myocardial infarction 19 MOTHER Review of Systems Time Seen by Provider: 07:28 Exam Exam Vital Signs Date Time Temp Pulse Resp B/P (MAP) Pulse Ox O2 Delivery O2 Flow Rate FiO2 08/31/17 04:00 98.2 64 23 155/84 97 Room Air 08/31/17 04:00 97 Room Air 08/31/17 04:00 97 Room Air 08/31/17 01:00 59 08/31/17 00:00 95 Room Air 08/31/17 00:00 Room Air 08/31/17 00:00 98.0 61 25 145/88 96 Room Air 08/30/17 22:00 65 17 138/73 97 Room Air 08/30/17 21:00 67 14 150/80 96 Room Air 08/30/17 20:00 97.8 77 21 155/82 94 Room Air 08/30/17 20:00 Room Air 08/30/17 20:00 97 Room Air 08/30/17 19:00 77 16 162/109 98 Room Air 08/30/17 19:00 77 08/30/17 18:00 61 20 145/74 97 Nasal Cannula 1.50 08/30/17 17:00 67 15 159/92 96 Nasal Cannula 1.50 08/30/17 16:52 Nasal Cannula 1.50 08/30/17 16:51 97.7 Nasal Cannula 1.50 08/30/17 16:51 97 Nasal Cannula 1.50 08/30/17 16:00 58 10 140/77 100 Nasal Cannula 3.00 08/30/17 15:00 78 11 145/119 98 Nasal Cannula 3.00 08/30/17 14:00 68 10 160/102 98 Nasal Cannula 3.00 08/30/17 13:00 71 14 149/114 97 Nasal Cannula 3.00 08/30/17 13:00 71 08/30/17 12:45 Nasal Cannula 3.00 08/30/17 12:10 96 Nasal Cannula 2.00 08/30/17 12:10 Nasal Cannula 2.00 08/30/17 12:00 99.1 08/30/17 12:00 55 10 153/92 95 Nasal Cannula 4.00 08/30/17 11:00 55 11 141/96 97 Nasal Cannula 4.00 08/30/17 10:00 58 18 155/72 93 Nasal Cannula 4.00 08/30/17 09:00 Nasal Cannula 4.00 08/30/17 08:20 96 Nasal Cannula 2.00 08/30/17 08:20 Nasal Cannula 2.00 08/30/17 08:00 56 12 135/94 100 Nasal Cannula 4.00 08/30/17 08:00 97.6 General Appearance: No Apparent Distress, WD/WN, Chronically ill HEENT: PERRL/EOMI, Normal ENT Inspection, Pharynx Normal Neck: Full Range of Motion, Normal Inspection, Non Tender, Supple, Carotid Bruit Respiratory: Chest Non Tender, Lungs Clear, Normal Breath Sounds, No Accessory Muscle Use, No Respiratory Distress Cardiovascular: No Edema, No Gallop, No JVD, No Murmur, Normal Peripheral Pulses, Irregularly Irregular Capillary Refill: Less Than 3 Seconds Gastrointestinal: normal bowel sounds, non tender, soft, no organomegaly Extremity: Normal Capillary Refill, Normal Inspection, Normal Range of Motion, Non Tender, No Calf Tenderness, No Pedal Edema Neurologic/Psychiatric: Alert, Oriented x3, No Motor/Sensory Deficits, Normal Mood/Affect Skin: Normal Color, Warm/Dry Lymphatic: No Adenopathy Results Lab Laboratory Tests 08/30/17 03:57 08/31/17 05:00 Assessment/Plan Assessment/Plan Severe ischemic cardiomyopathy EF 15-20% -cardiology following SOB secondary to pulmonary edema -PT is feeling better. Continue to monitor CAD Aortic stenosis Afib DM 254 Clinical Quality Measures DVT/VTE Risk/Contraindication: Risk Factor Score Per Nursin RFS Level Per Nursing on Admit: 3=High LAXMI FINNEGAN DO Aug 31, 2017 07:22
--- NOTE | 2017-08-31 08:34 | Cardiology Progress Note ---
Subjective Date Seen by Provider: Aug 31, 2017 Time Seen by Provider: 08:28 Subjective/Events-last exam patient is sitting in bed, anxious to go home, requesting to be discharged. Has been feeling better. Denied any further episode of chest pain or shortness of breath, still having occasional episodes of atrial fibrillation, has been in and out of atrial fibrillation, mainly in sinus rhythm Review of Systems General: No Chills, No Night Sweats, No Fatigue, No Malaise, No Appetite, No Other HEENT: No Head Aches, No Visual Changes, No Eye Pain, No Ear Pain, No Dysphasia , No Sinus Congestion, No Post Nasal Drip, No Sore Throat, No Other Pulmonary: No Dyspnea, No Cough, No Pleuritic Chest Pain, No Other Cardiovascular: No: Chest Pain, Palpitations, Orthopnea, Paroxysmal Noc. Dyspnea, Edema, Lt Headedness, Other Objective-Cardiology Exam Last Set of Vital Signs Vital Signs 08/30/17 08/31/17 18:00 07:00 Pulse 61 O2 Flow Rate 1.50 Capillary Refill : Less Than 3 Seconds I&O Intake and Output 09/01/17 00:00 Intake Total 150 ml Output Total 850 ml Balance -700 ml Intake Oral 150 ml Output Urine Total 850 ml # Bowel Movements 2 General: Alert, Oriented X3, Cooperative HEENT: Atraumatic, PERRLA Neck: Supple, No JVD, No Thyromegaly Lungs: Clear to Auscultation, Normal Air Movement Heart: Regular Rate, Normal S1, Normal S2 Abdomen: Normal Bowel Sounds, Soft, No Tenderness, No Hepatosplenomegaly, No Masses Extremities: No Clubbing, No Cyanosis, No Edema, Normal Pulses, No Tenderness/ Swelling Skin: No Rashes, No Breakdown, No Significant Lesion Neuro: Normal Speech, Normal Tone, Sensation Intact Psych/Mental Status: Mental Status NL, Mood NL Results Lab Laboratory Tests 08/31/17 05:00 A/P-Cardiology Admission Diagnosis Shortness of breath Acute on chronic left ventricular systolic dysfunction, ischemic cardiomyopathy Coronary artery disease Aortic valve stenosis Atrial fibrillation Assessment/Plan Shortness of breath secondary to congestive heart failure, reporting improvement at this time. requesting to go home Chest pain, resembling angina, reporting improvement, no further episodes of chest pain were reported Congestive heart failure, acute on chronic left ventricular systolic dysfunction , Ischemic cardiomyopathy, ejection fraction on the last echo was 15-20 percent , underwent angioplasty and stent to the right coronary artery, cardiac catheterization results are discussed below Coronary artery disease, history of CABG 4 done in November 2014 using KOHLI to the LAD, reverse vein graft to the OM, PDA, reverse vein graft to the diagonal artery, cardiac catheterization was done earlier today resulted with 2 stents to the right coronary artery 1. Occluded 3 vein graft known to be to the right coronary artery, obtuse marginal and diagonal artery. 2. Patent KOHLI to LAD 3. 70 percent stenosis in the mid circumflex artery that need to be addressed at a later point 4. 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 Occluded vein graft to the right coronary artery with severe disease at the right coronary artery, complex intervention using 2 stents XIENCE ALPINE 2.75 x 28 expanded to 2.95 in the mid right coronary artery and 3.012 mm expanded to 3.25 at the ostial right coronary artery with excellent results. Distal right coronary artery has 60 percent stenosis at the bifurcation point with small vessel disease beyond that that will be treated medically Aortic stenosis, on JAVID it appeared that she has aortic valve sclerosis, was able to cross the valve easily with the catheter and there was no significant gradient across the aortic valve Paroxysmal atrial fibrillation-had episode of atrial fibrillation April 2017, converted to sinus rhythm on amiodarone, continue to monitor [id number] score of 6, yearly risk of stroke without oral anticoagulation is 9.8 percent. on aspirin and Plavix, I started her on Coumadin but patient is demanding to stay off Coumadin and agreed to take Xarelto, she understand the increased risk of bleeding with the triple therapy Borderline Bradycardia I we'll decrease beta blockers dose to Toprol 25 mg daily Severe mitral regurgitation, pulmonary hypertension with PA pressure 55-60 mmHg Hypertension, cough secondary to lisinopril, tolerating losartan well, I will start her on Entresto tomorrow Hyperlipidemia, maintained on Lipitor 40 mg daily, monitor lipids Questionable mild to moderate renal artery stenosis, continue to monitor Diabetes mellitus. Followed and managed by primary care physician History of cataract surgery, hysterectomy. Dental extraction. Nonobstructive carotid artery stenosis-most recent carotid duplex done July 2016. Reevaluate carotid duplex. Ok for Discharge from Cardiology standpoint Clinical Quality Measures DVT/VTE Risk/Contraindication: Risk Factor Score Per Nursin RFS Level Per Nursing on Admit: 3=High RAMY LATHAM MD Aug 31, 2017 08:34
[2017-08-31 08:41] VITALS: BP 138/76
[2017-08-31] MEDS ORDERED: METO-387 PO (08:54)
[2017-08-31] MEDS ORDERED: FURO20TA4 PO (08:54)
[2017-08-31] MEDS ORDERED: RIVA15TA PO (08:54)
[2017-08-31] MEDS ORDERED: AMIO200T2 PO (08:54)
[2017-08-31] MEDS ORDERED: LOSA25TA21 PO (08:54)
[2017-08-31] MEDS ORDERED: CLOP75TA28 PO (08:54)
--- NOTE | 2017-08-31 08:56 | Discharge Inst-Post CATH ---
Discharge Inst-CATH Post Cardiac Cath D/C Inst Follow Up/Plan Hold metformin for [address] Craig's office in one to [address] Norton's office CARDIAC CATH DISCHARGE INSTRUCTIONS *Hold Metformin for 48 hours post heart cath. ACTIVITY * Go Home directly and rest. * Limit activity of the leg (or wrist if it was used) for 7 days including aerobics, swimming, jogging, bicycling, etc. * Restrict stair-climbing for 7 days if possible, if not, climb up with your non -cath leg, then bring together on the same step. * Avoid lifting, pushing, pulling or excessive movement of the affected extremity for 7 days. * Customary sexual activity may be resumed after 2 days-use caution not to use a position that strains or causes pain to the affected extremity. * No driving for 24 hours. * NO SMOKING. * Avoid straining for bowel movements for 7 days. * Gentle walking on level ground is allowed. * Returning to work will depend on the type of procedure and the results. Your doctor will discuss this with you. CALL YOUR DOCTOR FOR ANY OF THE FOLLOWING: *If bleeding from the puncture site occurs- Apply gentle pressure to site with clean cloth and call your doctor or EMS. * If a knot or lump forms under the skin, increases in size, or causes pain. * If bruising appears to be worsening or moving further down your leg instead of disappearing. * Temperature above 101 F. CARE OF YOUR GROIN INCISION; * Bruising or purple discoloration of the skin near the puncture site is common. * You may shower only, no bathtub bathing for 5 days. Be careful to avoid slipping as your leg may feel stiff. * If a closure device was used on your femoral artery, please see the attached guide regarding care of the device and your leg. * REMOVE the dressing from your groin the next day after your procedure in the shower. CARE OF YOUR WRIST INCISION; * Bruising or purple discoloration of the skin near the puncture site is common. * You may shower. * DO NOT submerge wrist. * Remove dressing in 24 hours. RAMY CRAIG MD Aug 31, 2017 08:56
[2017-08-31] MEDS ORDERED: ASPI-983 PO (08:59)
[2017-08-31] MEDS ORDERED: CLOPIDOGREL 75 MG (PLAVIX) TABLET PO SCH (09:00)
[2017-08-31] MEDS ORDERED: ASPIRIN E.C. 81 MG (ECOTRIN) TAB PO SCH (09:00)
[2017-08-31] MEDS: MAGNESIUM OXIDE (MAG-OX)400 MG TAB PO SCH (09:05)
[2017-08-31] MEDS: FUROSEMIDE 20 MG (LASIX) TAB PO SCH (09:05)
[2017-08-31] MEDS: KCL 10 MEQ TAB (MICRO K) PO SCH (09:06)
[2017-08-31] MEDS: LOSARTAN 25 MG (COZAAR) TAB PO SCH (09:06)
[2017-08-31] MEDS: PHENAZOPYRIDINE 100 MG (PYRIDIUM) TABLET PO SCH (09:07)
[2017-08-31] MEDS: VITAMIN D3 1,000 UNITS (CHOLECALCIFEROL) TABLET PO SCH (09:07)
[2017-08-31] MEDS: SINEMET 25/100 (CARBIDOPA/LEVODOPA) TAB PO SCH (09:08)
[2017-08-31] MEDS: AMIODARONE 200 MG (CORDARONE) TAB PO SCH (09:08)
[2017-08-31] MEDS ORDERED: ENOXAPARIN 80 MG/0.8 ML (LOVENOX) SYR SC SCH (09:30)
--- NOTE | 2017-08-31 09:56 | Diagnostic Imaging Report ---
INDICATION: Chronic atrial fibrillation, congestive heart failure, hypoxemia.. TECHNIQUE: Single view chest at 4:54 AM. CORRELATION STUDY: 08/30/2017. FINDINGS: Post sternotomy changes. Heart size remains enlarged. Mediastinum is prominent. Vascular congestion persists but overall is somewhat improved and diminished. The severity of interstitial edema has also diminished. No new pulmonary infiltrate. IMPRESSION: Improved severity of fluid overload or failure. Congestive changes do remain. Dictated by: Dictated on workstation # [id number]
[2017-08-31 10:16] VITALS: BP 138/76
[2017-08-31] MEDS ORDERED: RIVAROXABAN 15 MG TABLET (XARELTO) PO SCH (17:00)
== END 2017-08-31 10:16 | disposition home or self-care (01) | DRG 247 ==
LOC: EDUNIT# 12:35 → ER 12:37 → ICU 14:00 → UNDOADMOB 14:00 → ICU 14:41 → INTOOBSV 08-30 08:00 → OBSVTOIN 08-30 08:00 → UNDODISIN 08-31 10:16
PROVIDERS: ADMIT Internal Medicine; ATTEND Internal Medicine
PROC: 5A2204Z Restoration of Cardiac Rhythm, Single (ICD-10-PCS; 2017-08-29)
PROC: 027035Z Dilation of Coronary Artery, One Artery with Two Drug-eluting Intraluminal Devices, Percutaneous Approach (ICD-10-PCS; principal; 2017-08-30)
PROC: 4A023N7 Measurement of Cardiac Sampling and Pressure, Left Heart, Percutaneous Approach (ICD-10-PCS; 2017-08-30)
PROC: B2131ZZ Fluoroscopy of Multiple Coronary Artery Bypass Grafts using Low Osmolar Contrast (ICD-10-PCS; 2017-08-30)
PROC: B2181ZZ Fluoroscopy of Left Internal Mammary Bypass Graft using Low Osmolar Contrast (ICD-10-PCS; 2017-08-30)
PROC: B3101ZZ Fluoroscopy of Thoracic Aorta using Low Osmolar Contrast (ICD-10-PCS; 2017-08-30)
DX: I11.0 Hypertensive heart disease with heart failure (principal); I50.23 Acute on chronic systolic (congestive) heart failure; I25.5 Ischemic cardiomyopathy; I48.0 Paroxysmal atrial fibrillation; I16.0 Hypertensive urgency; I25.810 Atherosclerosis of coronary artery bypass graft(s) without angina pectoris; I25.10 Atherosclerotic heart disease of native coronary artery without angina pectoris; E87.1 Hypo-osmolality and hyponatremia; E11.9 Type 2 diabetes mellitus without complications; F43.23 Adjustment disorder with mixed anxiety and depressed mood; E87.6 Hypokalemia; I08.0 Rheumatic disorders of both mitral and aortic valves; I27.20 Pulmonary hypertension, unspecified; E78.5 Hyperlipidemia, unspecified; Z91.14 Patient's other noncompliance with medication regimen; Z95.5 Presence of coronary angioplasty implant and graft; Z23 Encounter for immunization
CPT/HCPCS: 36415; 71010; 80048; 80053; 81000; 82962; 83735; 83880; 84100; 84443; 84484; 85025; 85027; 85610; 85730; 87077; 87088; 87186; 93005; 93041; 93306; 93320; 93970; 94761

== ENCOUNTER → 2017-09-04 | Outpatient (CLI) | payer MEDICARE ==
[~2017-09-04] MED LIST changes: +AMIO200T2 PO; +ASPI-983 PO; +CARB1TAB6 PO; +CLOP75TA28 PO; +LOSA25TA21 PO; +METO-387 PO; +RIVA15TA PO
== END ==
LOC: CARD 08:37
PROVIDERS: ATTEND Physician Assistant
DX: I25.10 Atherosclerotic heart disease of native coronary artery without angina pectoris (principal); E11.9 Type 2 diabetes mellitus without complications; K21.9 Gastro-esophageal reflux disease without esophagitis; I10 Essential (primary) hypertension
CPT/HCPCS: 93306

== ENCOUNTER 2017-09-07 13:19 | Emergency (ER) | payer MEDICARE ==
[~2017-09-07] VITALS: Ht 167.6 cm; Wt 65.8 kg
--- NOTE | 2017-09-07 15:05 | ED GU-Female ---
General Chief Complaint: -Female Stated Complaint: SHAKEY Nursing Triage Note: PT TO ROOM 7;COMPLAINING OF SHAKINESS, BURNING AND DIFFICULTY WHEN URINATING, CONSTIPATION. PT STATES THAT SHE TAKES DULCOLAX EVERY 3 DAYS, TOOK ONE EARLY THIS MORNING AND HAS NOT STOOLED. PT CURRENTLY TAKING BACTRIM. Nursing Sepsis Screen: No Definite Risk Source: patient Exam Limitations: no limitations History of Present Illness Time seen by provider: 14:55 Initial Comments Patient present to ER by private conveyance with a chief complaint of shakiness that is increased and also difficulty urinating. She has no abdominal pain, nausea, shortness of breath, cough, fevers. She was recently discharged a few days ago from the hospital where she was being worked up by Dr. Craig with a heart catheter. Patient was found incidentally to have a urinary tract infection and was started 2 days ago on Bactrim. Patient has tolerated Bactrim in the past but she says that her shakiness and dysuria has not improved since starting the antibiotic. She has a long-standing history of tremors for which she has been on propranolol in the past. She says she was taken off the propranolol recently and since then has gotten worse but in the last few days when she had her UTI has been uncontrollable. 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 She is also been constipated the last couple days. She says she's been trying to drink more fluids but she typically uses Dulcolax every other day and she has not been able to have a bowel movement for the last couple days. She says she gets blood on her lips because she has chronically very dry chapped lips. Allergies and Home Medications Allergies Coded Allergies: No Known Drug Allergies (Unverified , 04/15/13) Home Medications Amiodarone HCl 200 Mg Tablet, 400 MG PO BID, #60 Ref 4 take 400 mg twice daily for 2 weeks then Take 200 mg twice daily Prescribed by: RAMY CRAIG on 08/31/17 0854 Aspirin 81 Mg Tablet., 81 MG PO DAILY, #100 Ref 4 Prescribed by: RAMY CRAIG on 08/31/17 0859 Atorvastatin Calcium 40 Mg Tablet, 40 MG PO HS, (Reported) Bisacodyl 5 Mg Tablet.dr, 15 MG PO Q72H, (Reported) Carbidopa/Levodopa 1 Each Tablet, 25-100 MG PO BID, (Reported) Cholecalciferol (Vitamin D3) 1,000 Unit Tablet, 1,000 UNIT PO DAILY, (Reported) Clopidogrel Bisulfate 75 Mg Tablet, 75 MG PO DAILY, #30 Ref 6 Prescribed by: RAMY CRAIG on 08/31/17853 Furosemide 20 Mg Tablet, 20 MG PO DAILY, #60 take one tablet daily Take additional tablet as needed for shortness of breath and swelling Prescribed by: RAMY CRAIG on 08/31/17853 Glimepiride 2 Mg Tablet, 2 MG PO DAILY, (Reported) Losartan Potassium 25 Mg Tablet, 25 MG PO DAILY, #30 Ref 3 Prescribed by: RAMY CRAIG on 08/31/17853 Magnesium Oxide 250 Mg Tablet, 250 MG PO BID, (Reported) Metoprolol Succinate 25 Mg Tab.er.24h, 25 MG PO DAILY, #30 Ref 4 Prescribed by: RAMY CRAIG on 08/31/17853 Multivitamin 1 Each Tablet, 1 TAB PO DAILY, (Reported) Potassium Chloride 10 Meq Tablet.er, 10 MEQ PO DAILY, (Reported) Rivaroxaban 15 Mg Tablet, 15 MG PO DAILY@1700, #30 Ref 3 Prescribed by: RAMY CRAIG on 08/31/17853 Constitutional: No chills, No fever, No malaise EENTM: No ear discharge, No eye pain Respiratory: No cough, No short of breath Cardiovascular: No chest pain, No edema, Hx of Intervention, No palpitations, No syncope, vascular heart diseas Gastrointestinal: No abdominal pain, constipation, No diarrhea, No nausea, No vomiting Genitourinary: burning, denies discharge, dysuria, frequency, denies incontinence Musculoskeletal: No back pain, No joint pain Skin: No pruritus, No rash Past Bjsqfzs-Llrhcj-Haqzqp Hx Patient Social History Alcohol Use: Denies Use Recreational Drug Use: No Smoking Status: Never a Smoker 2nd Hand Smoke Exposure: No Recent Foreign Travel: No Contact w/Someone Who Travel: No Recent Infectious Disease Expo: No Recent Hopitalizations: Yes Physical Abuse: No Sexual Abuse: No Immunizations Up To Date Tetanus Booster (TDap): Unknown Date of Pneumonia Vaccine: Sep 04, 2013 Date of Influenza Vaccine: Nov 17, 2014 Seasonal Allergies Seasonal Allergies: No Surgeries History of Surgeries: Yes Surgeries: Cardiac, CABG, Eye Surgery, Hysterectomy, Orthopedic, Tonsillectomy Respiratory History of Respiratory Disorde: Yes Respiratory Disorders: Pneumonia Cardiovascular History of Cardiac Disorders: Yes Cardiac Disorders: Atrial Fibrillation, Chronic Edema/Swelling, Coronary Artery Disease, Heart Murmur, High Cholesterol, Hypertension, Irregular Heartbeat, Peripheral Vascular, Valvular Heart Disease Neurological History of Neurological Disord: No 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 System Hx 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 Disorders: No Sexually Transmitted Disease: No HIV/AIDS: No 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 Disorders: 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 Genitourinary History of Genitourinary Disor: Yes (RENAL ARTERY STENT) Genitourinary Disorders: UTI-Chronic Gastrointestinal History of Gastrointestinal Di: Yes Gastrointestinal Disorders: Gastroesophageal Reflux, Chronic Constipation Musculoskeletal History of Musculoskeletal Dis: Yes Musculoskeletal Disorders: Arthritis Endocrine History of Endocrine Disorders: Yes (NON-COMPLIANT WITH MEDICATIONS AND NEVER CHECKS BLOOD GLUCOSE) Endocrine Disorders: Diabetes, Non-Insulin dep HEENT History of HEENT Disorders: Yes (S/P CATARACT SURGERY) HEENT Disorders: Cataract Cancer History of Cancer: No Psychosocial History of Psychiatric Problem: Yes Behavioral Health Disorders: Anxiety Suicide Risk Score: 0 Integumentary History of Skin or Integumenta: No Blood Transfusions History of Blood Disorders: No Family Medical History Family Medial History: Colon cancer 19 FATHER G8 BROTHER Diabetes mellitus 19 FATHER Hypertension 19 MOTHER Myocardial infarction 19 MOTHER Physical Exam Vital Signs Vital Sign - Last 12Hours 09/07/17 14:35 Temp 98.2 Pulse 83 Resp 20 B/P (MAP) 135/82 (99) Pulse Ox 95 O2 Delivery Room Air Capillary Refill : Less Than 3 Seconds General Appearance: WD/WN, mild distress, other (tearful at times) HEENT: PERRL/EOMI, pharynx normal (oral mucosa dry with small amount of dried blood at her lips. ) Neck: non-tender, supple, normal inspection Cardiovascular: normal peripheral pulses, regular rate, rhythm, no edema Respiratory: chest non-tender, lungs clear, normal breath sounds Gastrointestinal: normal bowel sounds, non tender, soft Back: normal inspection, no CVA tenderness Neurologic/Psychiatric: alert, oriented x 3, other (tearful when she discussed her tremors coming back since stopping the propranolol.) Skin: normal color, warm/dry Progress/Results/Core Measures Suspected Sepsis Recent Fever Within 48 Hours: No Infection Criteria Present: Documented Infection New/Unexplained Altered Menta: No Sepsis Screen: No Definite Risk Sepsis Diagnosis: SIRS Temperature:98.2 Pulse: 83 Respiratory Rate: 20 Laboratory Tests 09/07/17 16:01: White Blood Count 7.5 Blood Pressure 135 /82 Mean: 99 Laboratory Tests 09/07/17 16:01: Creatinine 1.38H, Platelet Count 232, Total Bilirubin 0.7 Results/Orders Lab Results Laboratory Tests Test 09/07/17 14:30 09/07/17 15:21 09/07/17 16:01 Range/Units Glucometer 117 H 70-110 MG/DL Urine Color YELLOW Urine Clarity CLEAR Urine pH 7 5-9 Urine Specific [place] 1.010 L 1.016-1.022 Urine Protein NEGATIVE NEGATIVE Urine Glucose (UA) NEGATIVE NEGATIVE Urine Ketones NEGATIVE NEGATIVE Urine Nitrite NEGATIVE NEGATIVE Urine Bilirubin NEGATIVE NEGATIVE Urine Urobilinogen NORMAL NORMAL MG/DL Urine Leukocyte Esterase 1+ H NEGATIVE Urine RBC (Auto) 3+ H NEGATIVE Urine RBC 5-10 H /HPF Urine WBC 5-10 H /HPF Urine Squamous Epithelial Cells 10-25 H /HPF Urine Crystals NONE /LPF Urine Bacteria FEW H /HPF Urine Casts NONE /LPF Urine Mucus NEGATIVE /LPF Urine Culture Indicated YES White Blood Count 7.5 4.3-11.0 10^3/uL Red Blood Count 3.74 L 4.35-5.85 10^6/uL Hemoglobin 11.6 11.5-16.0 G/DL Hematocrit 35 35-52 % Mean Corpuscular Volume 92 80-99 FL Mean Corpuscular Hemoglobin 31 25-34 PG Mean Corpuscular Hemoglobin Concent 34 32-36 G/DL Red Cell Distribution Width 12.7 10.0-14.5 % Platelet Count 232 130-400 10^3/uL Mean Platelet Volume 10.3 7.4-10.4 FL Neutrophils (%) (Auto) 75 42-75 % Lymphocytes (%) (Auto) 17 12-44 % Monocytes (%) (Auto) 6 0-12 % Eosinophils (%) (Auto) 1 0-10 % Basophils (%) (Auto) 0 0-10 % Neutrophils # (Auto) 5.6 1.8-7.8 X 10^3 Lymphocytes # (Auto) 1.3 1.0-4.0 X 10^3 Monocytes # (Auto) 0.5 0.0-1.0 X 10^3 Eosinophils # (Auto) 0.0 0.0-0.3 10^3/uL Basophils # (Auto) 0.0 0.0-0.1 10^3/uL Sodium Level 130 L 135-145 MMOL/L Potassium Level 3.9 3.6-5.0 MMOL/L Chloride Level 94 L 98-107 MMOL/L Carbon Dioxide Level 26 21-32 MMOL/L Anion Gap 10 5-14 MMOL/L Blood Urea Nitrogen 25 H 7-18 MG/DL Creatinine 1.38 H 0.60-1.30 MG/DL Estimat Glomerular Filtration Rate 37 BUN/Creatinine Ratio 18 Glucose Level 74 70-105 MG/DL Calcium Level 9.3 8.5-10.1 MG/DL Total Bilirubin 0.7 0.1-1.0 MG/DL Aspartate Amino Transf (AST/SGOT) 23 5-34 U/L Alanine Aminotransferase (ALT/SGPT) 7 0-55 U/L Alkaline Phosphatase 54 40-136 U/L Total Protein 7.4 6.4-8.2 GM/DL Albumin 4.0 3.2-4.5 GM/DL My Orders Orders - TYRESETRISH Cbc With Automated Diff (09/07/17 14:58) Comprehensive Metabolic Panel (09/07/17 14:58) Ua Culture If Indicated (09/07/17 14:58) Post Void Residual Assessment (09/07/17 14:58) Urine Culture (09/07/17 15:21) Vital Signs/I&O Vital Sign - Last 12Hours 09/07/17 14:35 Temp 98.2 Pulse 83 Resp 20 B/P (MAP) 135/82 (99) Pulse Ox 95 O2 Delivery Room Air Capillary Refill : Less Than 3 Seconds Blood Pressure Mean: 99 Progress Note #1: Time: 15:05 Progress Note She has outpatient follow-up for her tremors with Dr. Craig tomorrow and we'll encourage her to keep that appointment. We will obtain a UA as well as some blood looking for evidence of UTI treatment failure. We'll also get a postvoid residual to see if maybe urethritis is causing urinary retention. Urinalysis from August 28 shows 5-10 red blood cells and 5-10 white blood cells. She says she did not have a urinary catheter during her stay. She has a culture showing Klebsiella which is sensitive to everything but ampicillin. Progress Note #2: Time: 16:48 Progress Note Urinalysis looks better than it did on the . Urine culture shows Klebsiella sensitive to Bactrim. Postvoid residual is 1 mL. We will encourage her to continue the Bactrim and DC the Lasix for 2 days until she sees Dr. Deng in her office Thursday as she has a mild acute kidney injury. Patient is clinically dry as well. Quite instructed the patient to resume the Lasix early if she begins to have swelling around her ankles. Patient also has follow-up appointment this week with her specification consultant. If the patient misses her appointments with her outpatient doctors then I have instructed her to resume her Lasix half strength for 2 days and then resume full strength by Thursday. Departure Impression Impression: Primary Impression: Coarse tremors Additional Impressions: Urinary tract infection Qualified Codes: N30.01 - Acute cystitis with hematuria Acute kidney injury (nontraumatic) Dehydration, mild Disposition: HOME, SELF-CARE Condition: Stable Departure-Patient Inst. Decision time for Depature: 16:50 Referrals: MI DENG DO (PCP/Family) Primary Care Physician Patient Instructions: Urinary Tract Infection, Adult (DC) Add. Discharge Instructions: Discontinue your Lasix tomorrow and the following day. Keep your follow-up appointment in 2 days with your primary care physician. Discuss the mild acute kidney injury and possible labs to follow this up outpatient with Dr. Deng. Continue taking the Bactrim to completion. If you begin to have fevers, nausea, diarrhea you should either return to the ER or talk to your primary care physician immediately. If you Miss your appointment with your primary care physician then resume the Lasix half strength on and Thursday and then full strength on Thursday. If you begin to have swelling around your ankles or gain more than 5 pounds over 3 days you should resume your Lasix full-strength. All discharge instructions reviewed with patient and/or family. Voiced understanding. Copy Copies To 1: MI DENG DO Copies To 2: RAMY CRAIG MD, TITUS J Sep 07, 2017 15:05
[2017-09-07 15:50] LABS: BILIRUBIN,URINE NEGATIVE (NEGATIVE); KETONES,URINE NEGATIVE (NEGATIVE); LEUKOCYTE ESTERASE ,URINE 1+ (NEGATIVE); NITRITE,URINE NEGATIVE (NEGATIVE); PH,URINE 7 (5-9); PROTEIN,URINE NEGATIVE (NEGATIVE); UROBILINOGEN,URINE NORMAL (NORMAL)
[2017-09-07 16:07] LABS: BASOPHILS % (AUTO) 0 % (0-10); EOSINOPHILS % (AUTO) 1 % (0-10); LYMPHOCYTES # (AUTO) 1.3 X 10^3 (1.0-4.0); LYMPHOCYTES % (AUTO) 17 % (12-44); MEAN CORPUSCULAR HEMOGLOBIN 31 PG (25-34); MEAN CORPUSCULAR HGB CONC 34 G/DL (32-36); MEAN CORPUSCULAR VOLUME 92 FL (80-99); MEAN PLATELET VOLUME 10.3 FL (7.4-10.4); MONOCYTES # (AUTO) 0.5 X 10^3 (0.0-1.0); MONOCYTES % (AUTO) 6 % (0-12); NEUTROPHILS # (AUTO) 5.6 X 10^3 (1.8-7.8); NEUTROPHILS % (AUTO) 75 % (42-75); PLATELET COUNT 232 10^3/uL (130-400); RED BLOOD COUNT 3.74 10^6/uL (4.35-5.85); RED CELL DISTRIBUTION WIDTH 12.7 % (10.0-14.5); WHITE BLOOD COUNT 7.5 10^3/uL (4.3-11.0)
[2017-09-07 16:24] LABS: BILIRUBIN,TOTAL 0.7 MG/DL (0.1-1.0); CALCIUM 9.3 MG/DL (8.5-10.1); CREATININE SERUM 1.38 MG/DL (0.60-1.30); POTASSIUM 3.9 MMOL/L (3.6-5.0); TOTAL PROTEIN 7.4 GM/DL (6.4-8.2)
[2017-09-07 18:10] VITALS: BP 135/82
== END 2017-09-07 18:10 | disposition home or self-care (01) ==
LOC: EDUNIT# 13:19 → ER 13:21
DX: R25.1 Tremor, unspecified (principal); N39.0 Urinary tract infection, site not specified; N17.9 Acute kidney failure, unspecified; E86.0 Dehydration; F41.9 Anxiety disorder, unspecified; E11.9 Type 2 diabetes mellitus without complications; K21.9 Gastro-esophageal reflux disease without esophagitis; I48.91 Unspecified atrial fibrillation; I25.10 Atherosclerotic heart disease of native coronary artery without angina pectoris; E78.00 Pure hypercholesterolemia, unspecified; I10 Essential (primary) hypertension; Z95.1 Presence of aortocoronary bypass graft; Z90.89 Acquired absence of other organs; Z79.82 Long term (current) use of aspirin; Z79.84 Long term (current) use of oral hypoglycemic drugs; Z90.710 Acquired absence of both cervix and uterus
CPT/HCPCS: 36415; 80053; 81000; 82962; 85025; 87088; 99283

== ENCOUNTER 2017-09-10 17:29 | Emergency (ER) | payer MEDICARE ==
[~2017-09-10] VITALS: Ht 167.6 cm; Wt 65.9 kg
--- NOTE | 2017-09-10 17:49 | ED GI ---
General Chief Complaint: Abdominal/GI Problems Stated Complaint: TROUBLE BREATHING Nursing Triage Note: C/O SOA. Pt claims she is upset because she is unable to have a bowel movement. Sepsis Screen: No Definite Risk Source of Information: Patient Exam Limitations: No Limitations History of Present Illness Time Seen By Provider: 17:46 Initial Comments To ER accompanied by son and daughter with reports of shortness of breath. Patient states that she is upset because she's been unable to have a bowel movement for 7 days despite the use of Dulcolax pills and a suppository. Usually this works for her. She believes that she is going to in the immediate future. She denies chest pain or abdominal pain. She did vomit once today. She was seen here on 09/07/17 and diagnosed with urinary tract infection given a prescription for Bactrim but she's only taken one of these pills because of the nausea. Her family who accompanies her to ER is equally as anxious. Timing/Duration: 2-3 Days Associated Symptoms: Nausea/Vomiting Allergies and Home Medications Allergies Coded Allergies: No Known Drug Allergies (Unverified , 04/15/13) Home Medications Amiodarone HCl 200 Mg Tablet, 400 MG PO BID, #60 Ref 4 take 400 mg twice daily for 2 weeks then Take 200 mg twice daily Prescribed by: RAMY LATHAM on 08/31/17 0854 Aspirin 81 Mg Tablet.dr, 81 MG PO DAILY, #100 Ref 4 Prescribed by: RAMY LATHAM on 08/31/17 0859 Atorvastatin Calcium 40 Mg Tablet, 40 MG PO HS, (Reported) Bisacodyl 5 Mg Tablet.dr, 15 MG PO Q72H, (Reported) Carbidopa/Levodopa 1 Each Tablet, 25-100 MG PO BID, (Reported) Cholecalciferol (Vitamin D3) 1,000 Unit Tablet, 1,000 UNIT PO DAILY, (Reported) Clopidogrel Bisulfate 75 Mg Tablet, 75 MG PO DAILY, #30 Ref 6 Prescribed by: RAMY LATHAM on 08/31/17 0854 Furosemide 20 Mg Tablet, 20 MG PO DAILY, #60 take one tablet daily Take additional tablet as needed for shortness of breath and swelling Prescribed by: RAMY LATHAM on 08/31/17 0854 Glimepiride 2 Mg Tablet, 2 MG PO DAILY, (Reported) Losartan Potassium 25 Mg Tablet, 25 MG PO DAILY, #30 Ref 3 Prescribed by: RAMY LATHAM on 08/31/17 0854 Magnesium Oxide 250 Mg Tablet, 250 MG PO BID, (Reported) Metoprolol Succinate 25 Mg Tab.er.24h, 25 MG PO DAILY, #30 Ref 4 Prescribed by: RAMY LATHAM on 08/31/17 0854 Multivitamin 1 Each Tablet, 1 TAB PO DAILY, (Reported) Potassium Chloride 10 Meq Tablet.er, 10 MEQ PO DAILY, (Reported) Rivaroxaban 15 Mg Tablet, 15 MG PO DAILY@1700, #30 Ref 3 Prescribed by: RAMY LATHAM on 08/31/17 0854 Review of Systems Constitutional: see HPI EENTM: No Symptoms Reported Respiratory: See HPI, Shortness of Air Cardiovascular: No Symptoms Reported Gastrointestinal: See HPI, Denies Abdominal Pain, Constipated, Nausea Genitourinary: No Symptoms Reported Musculoskeletal: no symptoms reported Skin: no symptoms reported Psychiatric/Neurological: No Symptoms Reported Past Ifenbwv-Atehrc-Mzbemf Hx Patient Social History Alcohol Use: Denies Use Recreational Drug Use: No Smoking Status: Never a Smoker 2nd Hand Smoke Exposure: No Recent Foreign Travel: No Contact w/Someone Who Travel: No Recent Infectious Disease Expo: No Recent Hopitalizations: Yes Immunizations Up To Date Tetanus Booster (TDap): Unknown Date of Pneumonia Vaccine: Sep 04, 2013 Date of Influenza Vaccine: Nov 17, 2014 Seasonal Allergies Seasonal Allergies: No Surgeries History of Surgeries: Yes Surgeries: Cardiac, CABG, Eye Surgery, Hysterectomy, Orthopedic, Tonsillectomy Respiratory History of Respiratory Disorde: Yes Respiratory Disorders: Pneumonia Cardiovascular History of Cardiac Disorders: Yes Cardiac Disorders: Atrial Fibrillation, Chronic Edema/Swelling, Coronary Artery Disease, Heart Murmur, High Cholesterol, Hypertension, Irregular Heartbeat, Peripheral Vascular, Valvular Heart Disease Neurological History of Neurological Disord: No 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 System Hx 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 Disorders: No Sexually Transmitted Disease: No HIV/AIDS: No 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 Genitourinary History of Genitourinary Disor: Yes (RENAL ARTERY STENT) Genitourinary Disorders: UTI-Chronic Gastrointestinal History of Gastrointestinal Di: Yes Gastrointestinal Disorders: Gastroesophageal Reflux, Chronic Constipation Musculoskeletal History of Musculoskeletal Dis: Yes Musculoskeletal Disorders: Arthritis Endocrine History of Endocrine Disorders: Yes (NON-COMPLIANT WITH MEDICATIONS AND NEVER CHECKS BLOOD GLUCOSE) Endocrine Disorders: Diabetes, Non-Insulin dep HEENT History of HEENT Disorders: Yes (S/P CATARACT SURGERY) HEENT Disorders: Cataract Cancer History of Cancer: No Psychosocial History of Psychiatric Problem: Yes Behavioral Health Disorders: Anxiety Integumentary History of Skin or Integumenta: No Blood Transfusions History of Blood Disorders: No Family Medical History Family Medial History: Colon cancer 19 FATHER G8 BROTHER Diabetes mellitus 19 FATHER Hypertension 19 MOTHER Myocardial infarction 19 MOTHER Physical Exam Vital Signs VS - Last 72 Hours, by Label 09/10/17 17:40 Temp 97.5 Pulse 86 Resp 24 B/P (MAP) 187/113 (137) Pulse Ox 100 O2 Delivery Room Air Capillary Refill : Less Than 3 Seconds General Appearance: WD/WN, no apparent distress, other (very anxious appearing and tachypneic. Her respiratory rate slows significantly after I sit down at the bedside and talked to her and engage her in conversation. When her daughter who is present is speaking (and daughter does most of the speaking close) patient is very tachypneic.) HEENT: PERRL/EOMI, normal ENT inspection Neck: non-tender, full range of motion Respiratory: normal breath sounds, no respiratory distress, no accessory muscle use Gastrointestinal: normal bowel sounds, non tender, soft, No distended, No guarding, No rebound, No tenderness Extremities: normal range of motion, non-tender, normal inspection Neurologic/Psychiatric: alert, normal mood/affect, oriented x 3 Skin: normal color, warm/dry Progress/Results/Core Measures Results/Orders Lab Results Laboratory Tests Test 09/10/17 17:45 09/10/17 18:50 Range/Units White Blood Count 8.2 4.3-11.0 10^3/uL Red Blood Count 3.83 L 4.35-5.85 10^6/uL Hemoglobin 12.1 11.5-16.0 G/DL Hematocrit 35 35-52 % Mean Corpuscular Volume 92 80-99 FL Mean Corpuscular Hemoglobin 32 25-34 PG Mean Corpuscular Hemoglobin Concent 34 32-36 G/DL Red Cell Distribution Width 12.8 10.0-14.5 % Platelet Count 299 130-400 10^3/uL Mean Platelet Volume 10.2 7.4-10.4 FL Neutrophils (%) (Auto) 55 42-75 % Lymphocytes (%) (Auto) 31 12-44 % Monocytes (%) (Auto) 11 0-12 % Eosinophils (%) (Auto) 3 0-10 % Basophils (%) (Auto) 1 0-10 % Neutrophils # (Auto) 4.5 1.8-7.8 X 10^3 Lymphocytes # (Auto) 2.5 1.0-4.0 X 10^3 Monocytes # (Auto) 0.9 0.0-1.0 X 10^3 Eosinophils # (Auto) 0.3 0.0-0.3 10^3/uL Basophils # (Auto) 0.0 0.0-0.1 10^3/uL Prothrombin Time 17.5 H 12.2-14.7 SEC INR Comment 1.4 0.8-1.4 Activated Partial Thromboplast Time 34 24-35 SEC Sodium Level 128 L 135-145 MMOL/L Potassium Level 4.3 3.6-5.0 MMOL/L Chloride Level 95 L 98-107 MMOL/L Carbon Dioxide Level 26 21-32 MMOL/L Anion Gap 7 5-14 MMOL/L Blood Urea Nitrogen 23 H 7-18 MG/DL Creatinine 1.50 H 0.60-1.30 MG/DL Estimat Glomerular Filtration Rate 33 BUN/Creatinine Ratio 15 Glucose Level 101 70-105 MG/DL Calcium Level 9.9 8.5-10.1 MG/DL Magnesium Level 2.0 1.8-2.4 MG/DL Total Bilirubin 0.5 0.1-1.0 MG/DL Aspartate Amino Transf (AST/SGOT) 24 5-34 U/L Alanine Aminotransferase (ALT/SGPT) 31 0-55 U/L Alkaline Phosphatase 57 40-136 U/L Myoglobin 61.9 10.0-92.0 NG/ML Troponin I < 0.30 <0.30 NG/ML B-Type Natriuretic Peptide 500.8 H <100.0 PG/ML Total Protein 7.9 6.4-8.2 GM/DL Albumin 4.1 3.2-4.5 GM/DL My Orders Orders - T[employer] Cbc With Automated Diff (09/10/17 17:38) Magnesium (09/10/17 17:38) Chest 1 View, Ap/Pa Only (09/10/17 17:38) Ekg Tracing (09/10/17 17:38) Cardiac Profile 1 (09/10/17 17:38) Comprehensive Metabolic Panel (09/10/17 17:38) Myoglobin Serum (09/10/17 17:38) Protime With Inr (09/10/17 17:38) Partial Thromboplastin Time (09/10/17 17:38) O2 (09/10/17 17:38) Monitor-Rhythm Ecg Trace Only (09/10/17 17:38) Lipid Panel (09/11/17 06:00) Saline Lock/Iv-Start (09/10/17 17:38) BNP (09/10/17 17:38) Ondansetron Injection (Zofran Injectio (09/10/17 18:00) Lorazepam Injection (Ativan Injection) (09/10/17 18:00) Ct Abd/Pelvis Wo(Kidney Stone) (09/10/17 17:49) Ua Culture If Indicated (09/10/17 17:50) Lorazepam Injection (Ativan Injection) (09/10/17 18:00) Medications Given in ED Current Medications Medications Dose Ordered Sig/Mony Route Start Time Stop Time Status Last Admin Dose Admin Lorazepam 0.25 mg ONCE ONCE IVP 09/10/17 18:00 09/10/17 18:01 DC 09/10/17 18:05 0.25 MG Ondansetron HCl 4 mg ONCE ONCE IVP 09/10/17 18:00 09/10/17 18:01 DC 09/10/17 18:05 4 MG Vital Signs/I&O Vital Sign - Last 12Hours 09/10/17 17:40 Temp 97.5 Pulse 86 Resp 24 B/P (MAP) 187/113 (137) Pulse Ox 100 O2 Delivery Room Air Blood Pressure Mean: 137 Departure Communication (Admissions) Progress Notes 1844- patient is much calm her at this time and states that she overall feels better. Third son is now at the bedside and is appreciative of helping her to calm down. He states "she gets very worked up ". Impression Impression: Primary Impression: Constipation Disposition: 01 HOME, SELF-CARE Condition: Stable Departure-Patient Inst. Decision time for Depature: 18:58 Referrals: MI DENG DO (PCP/Family) Primary Care Physician Patient Instructions: Constipation, Adult (DC) Add. Discharge Instructions: 1. Purchase MiraLAX [id number] at [facility] or [facility]. Use 4 capfuls dissolved in the bottle of Gatorade and drank this over the course of a few hours. If this does not result in a bowel movement in 24 hours you may repeat this. Alternatively he may drink the bottle of magnesium citrate tonight which should also resulted in a bowel movement but also may result in some abdominal cramping and this is normal. Alternatively, he may purchase a fleets enema over -the-counter at [facility] or [facility] administer this to yourself tonight which should result in a bowel movement. For any intolerable pains, vomiting or other concerns return to the emergency room. All discharge instructions reviewed with patient and/or family. Voiced understanding. Copy Copies To 1: MI DENG PETER J APRN Sep 10, 2017 17:49
[2017-09-10 17:53] LABS: BASOPHILS % (AUTO) 1 % (0-10); EOSINOPHILS # (AUTO) 0.3 10^3/uL (0.0-0.3); EOSINOPHILS % (AUTO) 3 % (0-10); LYMPHOCYTES # (AUTO) 2.5 X 10^3 (1.0-4.0); LYMPHOCYTES % (AUTO) 31 % (12-44); MEAN CORPUSCULAR HEMOGLOBIN 32 PG (25-34); MEAN CORPUSCULAR HGB CONC 34 G/DL (32-36); MEAN CORPUSCULAR VOLUME 92 FL (80-99); MEAN PLATELET VOLUME 10.2 FL (7.4-10.4); MONOCYTES # (AUTO) 0.9 X 10^3 (0.0-1.0); MONOCYTES % (AUTO) 11 % (0-12); NEUTROPHILS # (AUTO) 4.5 X 10^3 (1.8-7.8); NEUTROPHILS % (AUTO) 55 % (42-75); PLATELET COUNT 299 10^3/uL (130-400); RED BLOOD COUNT 3.83 10^6/uL (4.35-5.85); RED CELL DISTRIBUTION WIDTH 12.8 % (10.0-14.5); WHITE BLOOD COUNT 8.2 10^3/uL (4.3-11.0)
[2017-09-10] MEDS ORDERED: ONDANSETRON 4 MG/2 ML (SDV) Z0FRAN IVP ONE (18:00)
[2017-09-10] MEDS ORDERED: LORazepam INJ 2 MG/ML (ATIVAN) VIAL IVP ONE ×2 (18:00)
[2017-09-10 18:07] LABS: INR 1.4 (0.8-1.4); PROTHROMBIN TIME PATIENT 17.5 SEC (12.2-14.7)
[2017-09-10 18:18] LABS: ALANINE AMINOTRANSFERASE 31 U/L (0-55); ALBUMIN 4.1 GM/DL (3.2-4.5); ANION GAP 7 MMOL/L (5-14); ASPARTATE AMINO TRANSFERASE 24 U/L (5-34); BILIRUBIN,TOTAL 0.5 MG/DL (0.1-1.0); BLOOD UREA NITROGEN 23 MG/DL (7-18); BUN/CREATININE RATIO 15; CALCIUM 9.9 MG/DL (8.5-10.1); CARBON DIOXIDE 26 MMOL/L (21-32); CHLORIDE 95 MMOL/L (98-107); GFR ESTIMATED 33; GLUCOSE 101 MG/DL (70-105); POTASSIUM 4.3 MMOL/L (3.6-5.0); SODIUM 128 MMOL/L (135-145); TOTAL PROTEIN 7.9 GM/DL (6.4-8.2)
[2017-09-10 18:24] LABS: MYOGLOBIN SERUM 61.9 NG/ML (10.0-92.0)
--- NOTE | 2017-09-10 18:29 | Diagnostic Imaging Report ---
INDICATION: Abdominal pain. EXAMINATION: Single view of the chest was obtained. FINDINGS: There is cardiomegaly. There has been a previous median sternotomy and coronary artery bypass graft. There is some ectasia and tortuosity of the thoracic aorta. Lungs are clear. There is no pleural effusion or pneumothorax. Mediastinum is unremarkable. IMPRESSION: 1. Cardiomegaly as well as some ectasia and tortuosity of the thoracic aorta. 2. No other acute cardiopulmonary abnormality. Dictated by: Dictated on workstation # [id number]
--- NOTE | 2017-09-10 18:31 | Diagnostic Imaging Report ---
PROCEDURE: CT urinary tract, rule out kidney stone. TECHNIQUE: Multiple contiguous axial images were obtained through the abdomen and pelvis without the use of intravenous contrast. INDICATION: Shortness of breath and abdominal pain. COMPARISON: Comparison made with prior examination from 04/22/2017. FINDINGS: There are coronary artery calcifications. The lung bases are clear. There is a cyst in the liver. There is no biliary ductal dilatation. There are multiple stones in the gallbladder. Spleen is normal. The pancreas and adrenal glands are unremarkable. There is a vague nonobstructing stone in the left kidney. There is no evidence of obstructive uropathy. There is moderate atherosclerotic calcification of the aorta which is nonaneurysmal. There is a moderate amount of retained fecal material within the colon, likely reflecting some degree of constipation. The bowel gas pattern is nonspecific. There is no free air. Bladder is unremarkable. There is no pelvic mass, adenopathy, or free fluid. There are degenerative changes in the spine. IMPRESSION: Cholelithiasis. Vague nonobstructing stone in the left kidney. There is, however, no evidence of obstructive uropathy. Moderate amount of retained fecal material likely reflecting some degree of constipation. Coronary artery calcifications. Degenerative changes in the spine. Marked atherosclerotic calcification in the abdominal aorta which is nonaneurysmal. Dictated by: Dictated on workstation # [id number]
[2017-09-10 18:56] LABS: BILIRUBIN,URINE NEGATIVE (NEGATIVE); KETONES,URINE NEGATIVE (NEGATIVE); LEUKOCYTE ESTERASE ,URINE 1+ (NEGATIVE); NITRITE,URINE NEGATIVE (NEGATIVE); PH,URINE 6 (5-9); PROTEIN,URINE NEGATIVE (NEGATIVE); UROBILINOGEN,URINE NORMAL (NORMAL)
[2017-09-10] MEDS ORDERED: MAGNESIUM CITRATE 300 ML BTL PO ONE (19:00)
[2017-09-10 19:15] VITALS: BP 164/83
== END 2017-09-10 19:15 | disposition home or self-care (01) ==
LOC: EDUNIT# 17:29 → ER 17:30
DX: K59.00 Constipation, unspecified (principal); I48.91 Unspecified atrial fibrillation; I25.10 Atherosclerotic heart disease of native coronary artery without angina pectoris; E78.00 Pure hypercholesterolemia, unspecified; I10 Essential (primary) hypertension; I73.9 Peripheral vascular disease, unspecified; E11.9 Type 2 diabetes mellitus without complications; K21.9 Gastro-esophageal reflux disease without esophagitis; F41.9 Anxiety disorder, unspecified; Z82.49 Family history of ischemic heart disease and other diseases of the circulatory system; Z80.0 Family history of malignant neoplasm of digestive organs; Z87.19 Personal history of other diseases of the digestive system; Z96.0 Presence of urogenital implants; Z87.01 Personal history of pneumonia (recurrent); Z79.82 Long term (current) use of aspirin; Z79.01 Long term (current) use of anticoagulants; Z87.440 Personal history of urinary (tract) infections; Z95.1 Presence of aortocoronary bypass graft; Z90.710 Acquired absence of both cervix and uterus; Z90.89 Acquired absence of other organs
CPT/HCPCS: 36415; 71010; 74176; 80053; 81000; 83735; 83874; 83880; 84484; 85025; 85610; 85730; 93005; 93041

== ENCOUNTER 2017-10-05 21:49 | Observation (INO) | payer MEDICARE ==
[~2017-10-05] VITALS: Ht 167.6 cm; Wt 66.3 kg
[2017-10-05] MEDS ORDERED: LACTATED RINGERS 1,000 ML IV ONE (22:07)
[2017-10-05] MEDS ORDERED: NS IV 500 ML 500 ML IV ONE (22:07)
[2017-10-05] MEDS ORDERED: cefTRIAXone 1 GM (ROCEPHIN) VIAL IV STA (22:07)
[2017-10-05] MEDS ORDERED: ASPIRIN 81 MG CHEW (CHILDREN'S ASA) PO ONE (22:15)
--- NOTE | 2017-10-05 22:15 | ED General ---
General Stated Complaint: SOA Source of Information: Patient, Family Exam Limitations: No Limitations History of Present Illness Time Seen by Provider: 22:00 Initial Comments Patient presents to ER by EMS with a chief complaint that earlier today she said she felt fever she's had some cough medicine then tonight about 9:00 she started getting weak and had to be helped up off the toilet. She called EMS to come to the caregiver she was having shortness of breath but no chest pain at that time. When she came to the ER she began to endorsed tightness across her chest like a band across to her ribs and then some pain. She does have a history of coronary artery disease as well as she was in the hospital a few months ago for pericardial fluid effusion. EMS reports they did not see anything on the 12-lead. Patient had a temperature of 94 per EMS and 95 in the ER. She has a loose productive cough. No pain in her head ears nose or throat. She was given 2 breathing treatments by EMS on route. Allergies and Home Medications Allergies Coded Allergies: No Known Drug Allergies (Unverified , 04/15/13) Home Medications Amiodarone HCl 200 Mg Tablet, 400 MG PO BID, #60 Ref 4 take 400 mg twice daily for 2 weeks then Take 200 mg twice daily Prescribed by: RAMY LATHAM on 08/31/17 0854 Aspirin 81 Mg Tablet.dr, 81 MG PO DAILY, #100 Ref 4 Prescribed by: RAMY LATHAM on 08/31/17 0859 Atorvastatin Calcium 40 Mg Tablet, 40 MG PO HS, (Reported) Bisacodyl 5 Mg Tablet.dr, 15 MG PO Q72H, (Reported) Carbidopa/Levodopa 1 Each Tablet, 25-100 MG PO BID, (Reported) Cholecalciferol (Vitamin D3) 1,000 Unit Tablet, 1,000 UNIT PO DAILY, (Reported) Clopidogrel Bisulfate 75 Mg Tablet, 75 MG PO DAILY, #30 Ref 6 Prescribed by: RAMY LATHAM on 08/31/17 0854 Furosemide 20 Mg Tablet, 20 MG PO DAILY, #60 take one tablet daily Take additional tablet as needed for shortness of breath and swelling Prescribed by: RAMY LATHAM on 08/31/17 0854 Glimepiride 2 Mg Tablet, 2 MG PO DAILY, (Reported) Losartan Potassium 25 Mg Tablet, 25 MG PO DAILY, #30 Ref 3 Prescribed by: RAMY LATHAM on 08/31/17 0854 Magnesium Oxide 250 Mg Tablet, 250 MG PO BID, (Reported) Metoprolol Succinate 25 Mg Tab.er.24h, 25 MG PO DAILY, #30 Ref 4 Prescribed by: RAMY LATHAM on 08/31/17 0854 Multivitamin 1 Each Tablet, 1 TAB PO DAILY, (Reported) Potassium Chloride 10 Meq Tablet.er, 10 MEQ PO DAILY, (Reported) Rivaroxaban 15 Mg Tablet, 15 MG PO DAILY@1700, #30 Ref 3 Prescribed by: RAMY LATHAM on 08/31/17 0854 Constitutional: chills, fever (subjective), malaise, weakness EENTM: No hearing loss, No ear pain Respiratory: cough, No phlegm, short of breath, No wheezing Cardiovascular: see HPI, chest pain, No edema, Hx of Intervention, No palpitations, No syncope, vascular heart diseas Gastrointestinal: No abdominal pain, No constipation, No diarrhea, No nausea, No vomiting Genitourinary: No discharge, No dysuria Skin: No pruritus, No rash Past Isouwls-Wbjgez-Flhcll Hx Patient Social History Alcohol Use: Denies Use Recreational Drug Use: No 2nd Hand Smoke Exposure: No Recent Hopitalizations: Yes Immunizations Up To Date Tetanus Booster (TDap): Unknown Date of Pneumonia Vaccine: Sep 04, 2013 Date of Influenza Vaccine: Nov 17, 2014 Seasonal Allergies Seasonal Allergies: No Surgeries History of Surgeries: Yes Surgeries: Cardiac, CABG, Eye Surgery, Hysterectomy, Orthopedic, Tonsillectomy Respiratory History of Respiratory Disorde: Yes Respiratory Disorders: Pneumonia Cardiovascular History of Cardiac Disorders: Yes Cardiac Disorders: Atrial Fibrillation, Chronic Edema/Swelling, Coronary Artery Disease, Heart Murmur, High Cholesterol, Hypertension, Irregular Heartbeat, Peripheral Vascular, Valvular Heart Disease Neurological History of Neurological Disord: No 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 System Hx 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 Disorders: No Sexually Transmitted Disease: No HIV/AIDS: No 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 Disorders: Denies STATISTICIAN MATHEMATICAL History: Hysterectomy Genitourinary History of Genitourinary Disor: Yes (RENAL ARTERY STENT) Genitourinary Disorders: UTI-Chronic Gastrointestinal History of Gastrointestinal Di: Yes Gastrointestinal Disorders: Gastroesophageal Reflux, Chronic Constipation Musculoskeletal History of Musculoskeletal Dis: Yes Musculoskeletal Disorders: Arthritis Endocrine History of Endocrine Disorders: Yes (NON-COMPLIANT WITH MEDICATIONS AND NEVER CHECKS BLOOD GLUCOSE) Endocrine Disorders: Diabetes, Non-Insulin dep HEENT History of HEENT Disorders: Yes (S/P CATARACT SURGERY) HEENT Disorders: Cataract Cancer History of Cancer: No Psychosocial History of Psychiatric Problem: Yes Behavioral Health Disorders: Anxiety Integumentary History of Skin or Integumenta: No Blood Transfusions History of Blood Disorders: No Family Medical History Family Medial History: Colon cancer 19 FATHER G8 BROTHER Diabetes mellitus 19 FATHER Hypertension 19 MOTHER Myocardial infarction 19 MOTHER Physical Exam-Suspected Sepsis Physical Exam Vital Signs Vital Sign - Last 12Hours 10/05/17 10/05/17 21:49 22:05 Temp 95.8 Pulse 56 Resp 22 B/P (MAP) 203/113 (143) Pulse Ox 100 O2 Delivery Nasal Cannula O2 Flow Rate 2.00 FiO2 100 Capillary Refill : General Appearance: Mild Distress, Thin Eyes: Bilateral Eye Normal Inspection, Bilateral Eye PERRL, Bilateral Eye EOMI HEENT: PERRL/EOMI, TMs Normal, Normal ENT Inspection, Pharynx Normal (oral mucosa dry) Neck: Full Range of Motion, Non Tender, Supple Respiratory: Chest Non Tender, Lungs Clear, Normal Breath Sounds Cardiovascular: Regular Rate, Rhythm, No Edema, Normal Peripheral Pulses Gastrointestinal: Normal Bowel Sounds, Non Tender, Soft Extremity: Normal Capillary Refill, Normal Inspection, No Pedal Edema Neurologic/Psychiatric: Alert, Oriented x3, No Motor/Sensory Deficits Skin: normal color, warm/dry Focused Exam Evaluation Lactate Level Laboratory Tests 10/05/17 22:05: Lactic Acid Level 1.26 Lactic Acid Level Laboratory Tests Test 10/05/17 22:05 Lactic Acid Level 1.26 MMOL/L (0.50-2.00) Progress/Results/Core Measures Suspected Sepsis SIRS Temperature: Pulse: Respiratory Rate: Laboratory Tests 10/05/17 22:05: White Blood Count 10.5 Blood Pressure / Mean: Laboratory Tests 10/05/17 22:05: Lactic Acid Level 1.26 Laboratory Tests 10/05/17 22:05: Creatinine 1.32H, INR Comment 2.0H, Platelet Count 249, Total Bilirubin 0.6 Results/Orders Lab Results Laboratory Tests Test 10/05/17 22:05 10/05/17 22:24 10/05/17 23:59 Range/Units White Blood Count 10.5 4.3-11.0 10^3/uL Red Blood Count 4.10 L 4.35-5.85 10^6/uL Hemoglobin 12.7 11.5-16.0 G/DL Hematocrit 38 35-52 % Mean Corpuscular Volume 92 80-99 FL Mean Corpuscular Hemoglobin 31 25-34 PG Mean Corpuscular Hemoglobin Concent 34 32-36 G/DL Red Cell Distribution Width 13.1 10.0-14.5 % Platelet Count 249 130-400 10^3/uL Mean Platelet Volume 10.5 H 7.4-10.4 FL Neutrophils (%) (Auto) 60 42-75 % Lymphocytes (%) (Auto) 28 12-44 % Monocytes (%) (Auto) 7 0-12 % Eosinophils (%) (Auto) 4 0-10 % Basophils (%) (Auto) 0 0-10 % Neutrophils # (Auto) 6.2 1.8-7.8 X 10^3 Lymphocytes # (Auto) 3.0 1.0-4.0 X 10^3 Monocytes # (Auto) 0.8 0.0-1.0 X 10^3 Eosinophils # (Auto) 0.5 H 0.0-0.3 10^3/uL Basophils # (Auto) 0.0 0.0-0.1 10^3/uL Prothrombin Time 22.6 H 12.2-14.7 SEC INR Comment 2.0 H 0.8-1.4 Activated Partial Thromboplast Time 39 H 24-35 SEC Sodium Level 131 L 135-145 MMOL/L Potassium Level 5.4 H 3.6-5.0 MMOL/L Chloride Level 94 L 98-107 MMOL/L Carbon Dioxide Level 22 21-32 MMOL/L Anion Gap 15 H 5-14 MMOL/L Blood Urea Nitrogen 21 H 7-18 MG/DL Creatinine 1.32 H 0.60-1.30 MG/DL Estimat Glomerular Filtration Rate 38 BUN/Creatinine Ratio 16 Glucose Level 111 H 70-105 MG/DL Lactic Acid Level 1.26 0.50-2.00 MMOL/L Calcium Level 9.7 8.5-10.1 MG/DL Magnesium Level 2.6 H 1.8-2.4 MG/DL Total Bilirubin 0.6 0.1-1.0 MG/DL Aspartate Amino Transf (AST/SGOT) 47 H 5-34 U/L Alanine Aminotransferase (ALT/SGPT) 32 0-55 U/L Alkaline Phosphatase 56 40-136 U/L Troponin I < 0.30 <0.30 NG/ML C-Reactive Protein High Sensitivity 0.05 0.00-0.50 MG/DL Total Protein 8.2 6.4-8.2 GM/DL Albumin 4.2 3.2-4.5 GM/DL Glucometer 111 H 70-110 MG/DL Urine Color YELLOW Urine Clarity CLEAR Urine pH 7 5-9 Urine Specific [place] 1.005 L 1.016-1.022 Urine Protein NEGATIVE NEGATIVE Urine Glucose (UA) NEGATIVE NEGATIVE Urine Ketones NEGATIVE NEGATIVE Urine Nitrite NEGATIVE NEGATIVE Urine Bilirubin NEGATIVE NEGATIVE Urine Urobilinogen NORMAL NORMAL MG/DL Urine Leukocyte Esterase 1+ H NEGATIVE Urine RBC (Auto) 1+ H NEGATIVE Urine RBC 0-2 /HPF Urine WBC 0-2 /HPF Urine Squamous Epithelial Cells 2-5 /HPF Urine Crystals NONE /LPF Urine Bacteria TRACE /HPF Urine Casts NONE /LPF Urine Mucus NEGATIVE /LPF Urine Culture Indicated NO Micro Results Microbiology 10/05/17 Influenza Types A,B Antigen (POONAM) - Final, Complete My Orders Orders - TRISH XIONG Cbc With Automated Diff (10/05/17 22:07) Comprehensive Metabolic Panel (10/05/17 22:07) Lactic Acid Analyzer (10/05/17 22:07) Blood Culture (10/05/17 22:07) Sputum Culture (10/05/17 22:07) Ua Culture If Indicated (10/05/17 22:07) Protime With Inr (10/05/17 22:07) Partial Thromboplastin Time (10/05/17 22:07) Chest 1 View, Ap/Pa Only (10/05/17 22:07) O2 (10/05/17 22:07) Saline Lock/Iv-Start (10/05/17 22:07) Saline Lock/Iv-Start (10/05/17 22:07) Ekg Tracing (10/05/17 22:07) Troponin I (10/05/17 22:07) Vital Signs Adult Sepsis Patie Q1H (10/05/17 22:07) Ceftriaxone Injection (Rocephin Injectio (10/05/17 22:07) Remove Rings In Anticipation O (10/05/17 22:07) Influenza A And B Antigens (10/05/17 22:07) Ns Iv 500 Ml (Sodium Chloride 0.9%) (10/05/17 22:07) Lactated Ringers (Lr 1000 Ml Iv Solution (10/05/17 22:07) Hs C Reactive Protein (10/05/17 22:07) Magnesium (10/05/17 22:07) Aspirin Chewable Tablet (Baby Aspirin Ch (10/05/17 22:15) Labetalol Injection (Normodyne Injection (10/05/17 23:30) Metoprolol Succinate (Xl) Tab (Toprol Xl (10/05/17 23:45) Medications Given in ED Current Medications Medications Dose Ordered Sig/Mony Route Start Time Stop Time Status Last Admin Dose Admin Aspirin 324 mg ONCE ONCE PO 10/05/17 22:15 10/05/17 22:16 DC 10/05/17 23:02 324 MG Labetalol HCl 10 mg ONCE ONCE IV 10/05/17 23:30 10/05/17 23:31 DC 10/06/17 00:07 10 MG Lactated Ringer's 1,000 ml @ 0 mls/hr Q0M ONCE IV 10/05/17 22:07 10/05/17 22:12 DC 10/05/17 23:02 0 MLS/HR Metoprolol Succinate 100 mg ONCE ONCE PO 10/05/17 23:45 10/05/17 23:46 DC 10/06/17 00:07 100 MG Sodium Chloride 500 ml @ 0 mls/hr Q0M ONCE IV 10/05/17 22:07 10/05/17 22:12 DC 10/05/17 23:02 0 MLS/HR Vital Signs/I&O Vital Sign - Last 12Hours 10/05/17 10/05/17 21:49 22:05 Temp 95.8 Pulse 56 Resp 22 B/P (MAP) 203/113 (143) Pulse Ox 100 100 O2 Delivery Nasal Cannula Nasal Cannula O2 Flow Rate 2.00 FiO2 100 Intake and Output 10/06/17 00:00 Intake Total 1500 ml Balance 1500 ml Capillary Refill : Progress Note : Time: 00:38 Progress Note Initial suspicion was for sepsis given her low temperature and high blood pressure and air hunger as well as a cough. Chest x-ray does not show definite pneumonia and she does not have a elevated white count. She is already on beta blockers. We gave her Rocephin and fluids which only exacerbated her hypertension. She feels that her symptoms are better however not seeing any evidence of infection so we'll just speak to cardiology about putting her in to workup her chest pain from a cardiac origin and continue to watch her and check labs in the morning. ECG Initial ECG Impression Date: Oct 05, 2017 Initial ECG Impression Time: 22:16 Initial ECG Rate: 57 Initial ECG Rhythm: Normal Sinus Initial ECG Intervals: QRS (138) Initial ECG Impression: Nonspecific Changes (left bundle branch block) Initial ECG Comparisson: Unchanged Comment No T-wave elevation or depression. Lots of artifact but P waves appear to be present and QRS intervals are regular. Diagnostic Imaging Diagonstic Imaging: Xray Plain Films/CT/US/NM/MRI: chest (1v) Comments Cardiomegaly. No infiltrates, effusion or pulmonary congestion. Reviewed: Reviewed by Me Departure Communication (Admissions) Time/Spoke to Admitting Phy: 00:[address] Dickey discussed case lab imaging and findings as well as consult with Dr. Lerma. Impression Impression: Primary Impression: Chest pain Qualified Codes: R07.2 - Precordial pain Additional Impression: Hypertensive urgency Disposition: 09 ADMITTED INPATIENT Condition: Stable Admissions Decision to Admit Reason: Admit from ER (General) Decision to Admit/Date: Oct 06, 2017 Time/Decision to Admit Time: 00:36 Departure-Patient Inst. Referrals: MI DENG DO (PCP/Family) Primary Care Physician Copy Copies To 1: MI DENG TITUS J Oct 05, 2017 22:14
[2017-10-05 22:22] LABS: BASOPHILS % (AUTO) 0 % (0-10); EOSINOPHILS # (AUTO) 0.5 10^3/uL (0.0-0.3); EOSINOPHILS % (AUTO) 4 % (0-10); HEMATOCRIT 38 % (35-52); HEMOGLOBIN 12.7 G/DL (11.5-16.0); LYMPHOCYTES % (AUTO) 28 % (12-44); MEAN CORPUSCULAR HEMOGLOBIN 31 PG (25-34); MEAN CORPUSCULAR HGB CONC 34 G/DL (32-36); MEAN CORPUSCULAR VOLUME 92 FL (80-99); MEAN PLATELET VOLUME 10.5 FL (7.4-10.4); MONOCYTES # (AUTO) 0.8 X 10^3 (0.0-1.0); MONOCYTES % (AUTO) 7 % (0-12); NEUTROPHILS # (AUTO) 6.2 X 10^3 (1.8-7.8); NEUTROPHILS % (AUTO) 60 % (42-75); PLATELET COUNT 249 10^3/uL (130-400); RED CELL DISTRIBUTION WIDTH 13.1 % (10.0-14.5); WHITE BLOOD COUNT 10.5 10^3/uL (4.3-11.0)
[2017-10-05 22:25] LABS: PROTHROMBIN TIME PATIENT 22.6 SEC (12.2-14.7)
[2017-10-05 22:34] LABS: ALANINE AMINOTRANSFERASE 32 U/L (0-55); ALBUMIN 4.2 GM/DL (3.2-4.5); ALKALINE PHOSPHATASE 56 U/L (40-136); BILIRUBIN,TOTAL 0.6 MG/DL (0.1-1.0); BUN/CREATININE RATIO 16; CALCIUM 9.7 MG/DL (8.5-10.1); CARBON DIOXIDE 22 MMOL/L (21-32); CHLORIDE 94 MMOL/L (98-107); CREATININE SERUM 1.32 MG/DL (0.60-1.30); GFR ESTIMATED 38; GLUCOSE 111 MG/DL (70-105); MAGNESIUM 2.6 MG/DL (1.8-2.4); POTASSIUM 5.4 MMOL/L (3.6-5.0); SODIUM 131 MMOL/L (135-145); TOTAL PROTEIN 8.2 GM/DL (6.4-8.2)
[2017-10-05] MEDS ORDERED: LABETALOL HCL 20 MG/4 ML VIAL IV ONE (23:30)
[2017-10-05] MEDS ORDERED: meTOprolol SUCCINATE 100 MG (TOPROL XL) TAB PO ONE (23:45)
[2017-10-06] VITALS (13 sets, daily range): BP systolic 102–182; BP diastolic 52–93
[2017-10-06 00:11] LABS: BILIRUBIN,URINE NEGATIVE (NEGATIVE); CLARITY,URINE CLEAR; COLOR,URINE YELLOW; GLUCOSE, URINE (UA) NEGATIVE (NEGATIVE); KETONES,URINE NEGATIVE (NEGATIVE); LEUKOCYTE ESTERASE ,URINE 1+ (NEGATIVE); NITRITE,URINE NEGATIVE (NEGATIVE); PH,URINE 7 (5-9); PROTEIN,URINE NEGATIVE (NEGATIVE); UROBILINOGEN,URINE NORMAL (NORMAL)
[2017-10-06 00:17] LABS: BACTERIA,URINE TRACE /HPF; RBC,URINE 0-2 /HPF; WBC,URINE 0-2 /HPF
[2017-10-06] MEDS ORDERED: ONDANSETRON 4 MG/2 ML (SDV) Z0FRAN IV PRN (03:45)
[2017-10-06] MEDS ORDERED: ACETAMINOPHEN 500 MG TAB (TYLENOL) PO PRN (03:45)
[2017-10-06] MEDS ORDERED: NITROGLYCERIN 0.4 MG SL TABS BTL 25'S SL PRN (04:00)
[2017-10-06] MEDS ORDERED: morphine INJ 4 MG/ML 1 ML (VIAL/SYRINGE) IV PRN (04:00)
[2017-10-06 05:40] LABS: BASOPHILS % (AUTO) 0 % (0-10); EOSINOPHILS # (AUTO) 0.3 10^3/uL (0.0-0.3); EOSINOPHILS % (AUTO) 4 % (0-10); HEMATOCRIT 32 % (35-52); HEMOGLOBIN 10.7 G/DL (11.5-16.0); LYMPHOCYTES # (AUTO) 2.1 X 10^3 (1.0-4.0); LYMPHOCYTES % (AUTO) 28 % (12-44); MEAN CORPUSCULAR HEMOGLOBIN 32 PG (25-34); MEAN CORPUSCULAR HGB CONC 34 G/DL (32-36); MEAN CORPUSCULAR VOLUME 93 FL (80-99); MEAN PLATELET VOLUME 10.2 FL (7.4-10.4); MONOCYTES # (AUTO) 0.6 X 10^3 (0.0-1.0); MONOCYTES % (AUTO) 8 % (0-12); NEUTROPHILS # (AUTO) 4.5 X 10^3 (1.8-7.8); NEUTROPHILS % (AUTO) 60 % (42-75); PLATELET COUNT 200 10^3/uL (130-400); RED CELL DISTRIBUTION WIDTH 13.1 % (10.0-14.5); WHITE BLOOD COUNT 7.5 10^3/uL (4.3-11.0)
[2017-10-06 05:56] LABS: BUN/CREATININE RATIO 17; CARBON DIOXIDE 25 MMOL/L (21-32); CHLORIDE 99 MMOL/L (98-107); CHOLESTEROL 136 MG/DL (< 200); CREATININE SERUM 1.15 MG/DL (0.60-1.30); GFR ESTIMATED 45; GLUCOSE 77 MG/DL (70-105); HDL CHOLESTEROL 53 MG/DL (40-60); POTASSIUM 4.5 MMOL/L (3.6-5.0); SODIUM 134 MMOL/L (135-145); TRIGLYCERIDES 57 MG/DL (<150); VLDL CHOLESTEROL 11 MG/DL (5-40)
[2017-10-06] MEDS: inSUlin (REGULAR) HUMAN 1 UNIT/0.01 ML (CHARGE PER UNIT) SC SCH ×2 (06:00→11:10)
[2017-10-06] MEDS ORDERED: INFLUENZA TRIvalent 2017-2018 0.5 ML/45 MCG SYR IM ONE (07:00)
--- NOTE | 2017-10-06 07:11 | Diagnostic Imaging Report ---
INDICATION: Chest pain. EXAMINATION: Chest, 10/05/2017. COMPARISON: 09/10/2017. FINDINGS: The heart is slightly prominent. Pulmonary vasculature is unremarkable. The lungs appear clear. No infiltrates or effusions. Sternotomy wires and mediastinal clips noted. IMPRESSION: 1. Mild prominence of the heart otherwise stable and unremarkable chest. Dictated by: Dictated on workstation # [id number]
[2017-10-06] MEDS ORDERED: ASPIRIN E.C. 325 MG (ECOTRIN) TABLET PO SCH (09:00)
[2017-10-06] MEDS ORDERED: GLIMEPIRIDE 2 MG (AMARYL) TAB PO SCH (09:00)
[2017-10-06] MEDS ORDERED: LOSARTAN 25 MG (COZAAR) TAB PO SCH ×2 (09:00)
[2017-10-06] MEDS ORDERED: KCL 10 MEQ TAB (MICRO K) PO SCH (09:00)
[2017-10-06] MEDS ORDERED: PROPRANOLOL 80 MG PO SCH (09:00)
[2017-10-06] MEDS ORDERED: FUROSEMIDE 20 MG (LASIX) TAB PO SCH (09:00)
[2017-10-06] MEDS ORDERED: CLOPIDOGREL 75 MG (PLAVIX) TABLET PO SCH (09:00)
[2017-10-06] MEDS ORDERED: meTOprolol SUCCINATE 100 MG (TOPROL XL) TAB PO SCH (09:00)
[2017-10-06] MEDS ORDERED: METF500T3 PO (09:39)
[2017-10-06] MEDS ORDERED: PROP80CA4 PO (09:39)
[2017-10-06] MEDS ORDERED: AMIO200T2 PO (09:39)
--- NOTE | 2017-10-06 09:53 | Consultation-Cardiology ---
HPI-Cardiology Cardiology Consultation: Date of Consultation 10/06/17 Time Seen by Provider: 09:50 Date of Admission 10-05-17 Attending Physician Maine Dickey DO Admitting Physician Mi Norton DO Consulting Physician Carline Rivera MD HPI: Chief Complaint: Dyspnea Weakness Primary [place]fill Operator: Dr. Craig Ms. Upton is an 82 year old female admitted to ICU 4 from the ED. She reports she was at home last evening when she began to feel unwell. She reports she felt as though she had a fever earlier in the day, but did not check her temp. She reports she was talking on the telephone and once she got off the phone she got up to use the bathroom. She had not taken her evening medications other than her Xarelto prior to this. She states she went to the restroom and felt very fatigued and shaky. She reports she contacted her son who directed her to call EMS. She states she summoned EMS. She reports she has has a lose productive cough since . No c/o n/v/d. No c/o chills. No c/o LE edema. She does not report chest discomfort; does have chronic epigastric discomfort, previous diagnosed as HH and unchanged in the recent past. No c/o palpitations. She reports she is feeling much better this morning Review of Systems-Cardiology Review of Systems Constitutional: No chills, fever, malaise Eyes: No blurred vision, No vision change Ears/Nose/Throat: No epistaxis Respiratory: As described under HPI Cardiovascular: As described under HPI Gastrointestinal: No constipation, No diarrhea, No nausea, No vomiting Genitourinary: No dysuria, No hematuria Musculoskeletal: no symptoms reported Skin: No rash, No ulcerations Psychiatric/Neurological: No focal weakness, No syncope Hematologic: No bleeding abnormalities [id number] Hx Patient Social History Alcohol Use: Denies Use Recreational Drug Use: No Smoking Status: Never a Smoker 2nd Hand Smoke Exposure: No Recent Foreign Travel: No Recent Infectious Disease Expo: No Hospitalization with Isolation: Denies Physical Abuse Screen: No Sexual Abuse: No Immunizations Up To Date Tetanus Booster (TDap): Unknown Date of Pneumonia Vaccine: Sep 04, 2013 Date of Influenza Vaccine: Aug 28, 2017 Past Medical History PMH As described under Assessment. Family Medical History Family Medical History: She reports her mother had CAD and HTN. Family History: 19 FATHER Colon cancer Diabetes mellitus 19 MOTHER Hypertension Myocardial infarction G8 BROTHER Colon cancer Allergies and Home Medications Allergies Coded Allergies: No Known Drug Allergies (Unverified , 04/15/13) Home Medications Amiodarone HCl 200 Mg Tablet, 200 MG PO BID, (Reported) Atorvastatin Calcium 40 Mg Tablet, 40 MG PO HS, (Reported) Bisacodyl 5 Mg Tablet.dr, 15 MG PO Q72H, (Reported) Cholecalciferol (Vitamin D3) 1,000 Unit Tablet, 2,000 UNIT PO DAILY, (Reported) Clopidogrel Bisulfate 75 Mg Tablet, 75 MG PO DAILY, #30 Ref 6 Prescribed by: RAMY CRAIG on 08/31/17 0854 Famotidine 20 Mg Tablet, 20 MG PO BID, #60 Prescribed by: MI NORTON on 10/06/17 1240 Furosemide 20 Mg Tablet, 20 MG PO DAILY, #60 take one tablet daily Take additional tablet as needed for shortness of breath and swelling Prescribed by: RAMY CRAIG on 08/31/17 0854 Glimepiride 2 Mg Tablet, 2 MG PO DAILY, (Reported) Losartan Potassium 25 Mg Tablet, 25 MG PO DAILY, #30 Ref 3 Prescribed by: RAMY CRAIG on 08/31/17 0854 Magnesium Oxide 250 Mg Tablet, 250 MG PO BID, (Reported) Metformin HCl 500 Mg Tab.er.24h, 1,000 MG PO DAILY, (Reported) Multivitamin 1 Each Tablet, 1 TAB PO DAILY, (Reported) Potassium Chloride 10 Meq Tablet.er, 10 MEQ PO DAILY, (Reported) Propranolol HCl 80 Mg Cap.sa.24h, 80 MG PO DAILY, (Reported) Rivaroxaban 15 Mg Tablet, 15 MG PO DAILY@1700, #30 Ref 3 Prescribed by: RAMY CRAIG on 08/31/17 0854 Physical Exam-Cardiology Physical Exam Vital Signs/I&O Vital Sign - Last 12Hours 10/06/17 10/06/17 10/06/17 10/06/17 01:12 01:22 01:28 01:33 Temp 95.8 97.4 Pulse 55 67 55 Resp 18 18 B/P (MAP) 172/80 (110) Pulse Ox 100 98 98 O2 Delivery Nasal Cannula Nasal Cannula Nasal Cannula O2 Flow Rate 2.00 2.00 2.00 10/06/17 10/06/17 10/06/17 10/06/17 01:45 02:00 02:15 02:30 Pulse 58 60 55 54 B/P (MAP) 174/87 (116) 182/86 (118) 174/77 (109) 160/67 (98) Pulse Ox 99 99 99 99 O2 Delivery Nasal Cannula Nasal Cannula Nasal Cannula Nasal Cannula O2 Flow Rate 2.00 2.00 2.00 2.00 10/06/17 10/06/17 10/06/17 10/06/17 02:45 03:00 04:00 04:00 Temp 97.6 Pulse 52 53 50 B/P (MAP) 137/68 (91) 156/66 (96) 102/54 (70) Pulse Ox 100 100 98 98 O2 Delivery Nasal Cannula Nasal Cannula Nasal Cannula Nasal Cannula O2 Flow Rate 2.00 2.00 2.00 2.00 FiO2 100 10/06/17 10/06/17 10/06/17 10/06/17 05:00 06:00 07:00 07:00 Pulse 60 53 60 70 Resp 16 B/P (MAP) 173/93 (119) 170/71 (104) 156/76 (102) Pulse Ox 99 98 97 O2 Delivery Nasal Cannula Nasal Cannula Nasal Cannula O2 Flow Rate 2.00 2.00 2.00 10/06/17 10/06/17 10/06/17 10/06/17 08:00 08:10 08:10 12:04 Temp 97.7 98.4 Pulse 71 52 Resp 26 14 B/P (MAP) 150/77 (101) 147/52 (83) Pulse Ox 93 98 96 O2 Delivery Nasal Cannula Room Air Room Air Room Air O2 Flow Rate 2.00 Intake and Output 10/06/17 00:00 Intake Total 1500 ml Balance 1500 ml Capillary Refill : Less Than 3 Seconds Constitutional: AAO x 3, well-developed, well-nourished HEENT: PERRL Neck: No carotid bruit, carotid pulses are 2 + bilaterally Respiratory: wheezing (RLL), other (lose cough) Cardiovascular: regular rate-rhythm, No JVD, S1 and S2, systolic murmur Gastrointestinal: No tender, soft, audible bowel sounds Rectal: deferred Extremities: no lower extremity edema bilateral Neurologic/Psychiatric: grossly intact Skin: normal color, warm/dry, No rash, No ulcerations Data Review Labs Laboratory Tests 10/05/17 22:05: White Blood Count 10.5, Red Blood Count 4.10L, Hemoglobin 12.7, Hematocrit 38, Mean Corpuscular Volume 92, Mean Corpuscular Hemoglobin 31, Mean Corpuscular Hemoglobin Concent 34, Red Cell Distribution Width 13.1, Platelet Count 249, Mean Platelet Volume 10.5H, Neutrophils (%) (Auto) 60, Lymphocytes (%) (Auto) 28 , Monocytes (%) (Auto) 7, Eosinophils (%) (Auto) 4, Basophils (%) (Auto) 0, Neutrophils # (Auto) 6.2, Lymphocytes # (Auto) 3.0, Monocytes # (Auto) 0.8, Eosinophils # (Auto) 0.5H, Basophils # (Auto) 0.0, Prothrombin Time 22.6H, INR Comment 2.0H, Activated Partial Thromboplast Time 39H, Sodium Level 131L, Potassium Level 5.4H, Chloride Level 94L, Carbon Dioxide Level 22, Anion Gap 15H , Blood Urea Nitrogen 21H, Creatinine 1.32H, Estimat Glomerular Filtration Rate 38, BUN/Creatinine Ratio 16, Glucose Level 111H, Lactic Acid Level 1.26, Calcium Level 9.7, Magnesium Level 2.6H, Total Bilirubin 0.6, Aspartate Amino Transf (AST/SGOT) 47H, Alanine Aminotransferase (ALT/SGPT) 32, Alkaline Phosphatase 56, Troponin I < 0.30, C-Reactive Protein High Sensitivity 0.05, Total Protein 8.2, Albumin 4.2 10/05/17 22:24: Glucometer 111H 10/05/17 23:59: Urine Color YELLOW, Urine Clarity CLEAR, Urine pH 7, Urine Specific Don[place]ue 1.005L, Urine Protein NEGATIVE, Urine Glucose (UA) NEGATIVE, Urine Ketones NEGATIVE, Urine Nitrite NEGATIVE, Urine Bilirubin NEGATIVE, Urine Urobilinogen NORMAL, Urine Leukocyte Esterase 1+H, Urine RBC (Auto) 1+H, Urine RBC 0-2, Urine WBC 0-2, Urine Squamous Epithelial Cells 2-5, Urine Crystals NONE, Urine Bacteria TRACE, Urine Casts NONE, Urine Mucus NEGATIVE, Urine Culture Indicated NO 10/06/17 04:40: White Blood Count 7.5, Red Blood Count 3.40L, Hemoglobin 10.7L, Hematocrit 32L, Mean Corpuscular Volume 93, Mean Corpuscular Hemoglobin 32, Mean Corpuscular Hemoglobin Concent 34, Red Cell Distribution Width 13.1, Platelet Count 200, Mean Platelet Volume 10.2, Neutrophils (%) (Auto) 60, Lymphocytes (%) (Auto) 28 , Monocytes (%) (Auto) 8, Eosinophils (%) (Auto) 4, Basophils (%) (Auto) 0, Neutrophils # (Auto) 4.5, Lymphocytes # (Auto) 2.1, Monocytes # (Auto) 0.6, Eosinophils # (Auto) 0.3, Basophils # (Auto) 0.0, Sodium Level 134L, Potassium Level 4.5, Chloride Level 99, Carbon Dioxide Level 25, Anion Gap 10, Blood Urea Nitrogen 19H, Creatinine 1.15, Estimat Glomerular Filtration Rate 45, BUN/ Creatinine Ratio 17, Glucose Level 77, Calcium Level 9.0, Troponin I < 0.30, Triglycerides Level 57, Cholesterol Level 136, LDL Cholesterol Direct 57, VLDL Cholesterol 11, HDL Cholesterol 53 10/06/17 10:19: Troponin I < 0.30 10/06/17 11:08: Glucometer 162H Microbiology 10/05/17 Influenza Types A,B Antigen (POONAM) - Final, Complete Laboratory Tests 10/05/17 22:05 10/06/17 04:40 Radiology NAME: [facility] REC#: [id number] PT STATUS: ADM Paolo : 1935 PHYSICIAN: TRISH XIONG MD ADMIT DATE: 10/05/17/ICU Signed Date of Exam: 10/05/17 CHEST 1 VIEW, AP/PA ONLY INDICATION: Chest pain. EXAMINATION: Chest, 10/05/2017. COMPARISON: 09/10/2017. FINDINGS: The heart is slightly prominent. Pulmonary vasculature is unremarkable. The lungs appear clear. No infiltrates or effusions. Sternotomy wires and mediastinal clips noted. IMPRESSION: 1. Mild prominence of the heart otherwise stable and unremarkable chest. Dictated by: Dictated on workstation # [id number] Dict: 10/06/17 0708 Trans: 10/06/17 0841 Interpreted by: SARAH HENDERSON MD Electronically signed by: SARAH HENDERSON MD 10/06/17 0841 ECG Impression ECG Initial ECG Rhythm: Normal Sinus A/P-Cardiology Assessment/Admission Diagnosis Gen malaise and probable ac bronchitis Chronic nonspecific chest discomfort w/o any evidence of ACS Chronic abnormal ECG (atypical LBBB0 that is unchanged during this admission Probable acute bronchitis, managed by Dr Norton Coronary artery disease, history of CABG 4 done in November 2014 using KOHLI to the LAD, reverse vein graft to the OM, PDA, reverse vein graft to the diagonal artery. Underwent cardiac catheterization on August 30, 2017 revealing occluded 3 vein graft known to be the RCA, obtuse marginal, diagonal artery. Patent KOHLI to LAD. 70 percent stenosis in the mid circumflex artery that needs to be addressed at a later point. 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 Occluded vein graft to the RCA with severe disease at the RCA with complex intervention using 2 stents, Xience Alpine 2.75 x 28 to the mid RCA and 3.0 x 12mm to the ostrial RCA with excellent results. Distal RCA has 60 percent stenosis at the bifurcation point and a small vessel beyond and is treated medically by Dr. Craig Aortic stenosis-most recent 2-D echocardiogram done April 2017 revealed moderate to severe aortic stenosis with calculated valve area of 1.05. Underwent JAVID August 2017 revealing aortic sclerosis without any significant aortic stenosis. Per Dr. Craig Paroxysmal atrial fibrillation-had JAVID with failed cardioversion August 2017. Cardioverted on amiodarone. Currently maintained on amiodarone 200 mg twice daily. Continue 1 month, then planning on decreasing to [address] Craig [id number] score of 6, yearly risk of stroke without oral anticoagulation is 9.8 percent. Patient is maintained on Xarelto at this time. Severe mitral regurgitation, pulmonary hypertension with PA pressure 55-60 mmHg per echo of April 2017 Hypertension - not well controlled Hyperlipidemia, maintained on Lipitor 40 mg daily Questionable mild to moderate renal artery stenosis, was followed by Dr. Basurto in the past, followed by Dr. Craig Diabetes mellitus. Followed and managed by primary care physician History of cataract surgery, hysterectomy. Dental extraction. Nonobstructive carotid artery stenosis-most recent carotid duplex done July 2016. 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 Maintained on Propranolol Discussion and Recomendations Episode of chest pressure in the epigastric region with no evidence of ACS and no further c/o. Continue antiplatelet tx. We do note she in on OAC with Xarelto and antiplatelet tx with ASA and Plavix. This does place her at increased risk of bleeding. We will hold ASA for now and continue Plavix d/t recent stent placement. We will continue OAC with Xarelto for stroke prophylaxis. Her BP is elevated. She has not had her medications. We will resume her home medications. We will add Protonix for GI prophylaxis. Dyspnea has improved. Likely d/t pneumonia/bronchitis; this is being managed by medical services. Monitor lab closely. She was hyperkalemic at time admission likely d/t intravascular depletion. This has improved after IVF. We would like to thank medical services for this consult. Further rec will be based on her hospital course. Dr. Craig will return tomorrow. This consult is being scribed by Lucille Timmons APRN on behalf of Dr. Rivera after discussion regarding plan of care. Clinical Quality Measures AMI/AHF: ASA po Prior to arrival: No DVT/VTE Risk/Contraindication: Risk Factor Score Per Nursin RFS Level Per Nursing on Admit: 2=Moderate Physician Assessment Physician Assessment Currently feels well. Doesn't feel she had any chest discomfort or heart- related issues. Malaise is much improved. Has cough productive of yellowish sputum for several days Lungs: good bilat air entry Cor: reg Ext: no c/c/e A&R * As documented in our note above that I updated (italics) and as noted below * I discussed her CV issues with her and have advised outpat f/u with Dr Reyes this week * I discussed her case with DUSTY Elmore Oct 06, 2017 09:53 CARLINE RIVERA MD FACP FAC CCDS Oct 06, 2017 13:02
[2017-10-06] MEDS ORDERED: BISACODYL 5 MG (DULCOLAX) TABLET PO SCH (10:30)
[2017-10-06] MEDS ORDERED: PATIENT MAY USE OWN MEDS, ALL MC SCH (11:00)
[2017-10-06] MEDS ORDERED: AMIODARONE 200 MG (CORDARONE) TAB PO SCH (11:26)
[2017-10-06] MEDS ORDERED: PANTOPRAZOLE 40 MG (PROTONIX) TAB PO NR (11:45)
[2017-10-06] MEDS ORDERED: FAMO20TA45 PO (12:40)
--- NOTE | 2017-10-06 12:42 | Discharge Inst-Simple/Standard ---
Discharge Inst-Standard Patient Instructions/Follow Up Plan of Care/Instructions/FU: Fwup with Dr. Craig and myself as scheduled--Oct 12 and Oct 15 respectively Activity as Tolerated: Yes Discharge Diet: ADA Diet, Cardiac Diet Other Inst to Patient Hold aspirin MI DENG DO Oct 06, 2017 12:42
[2017-10-06] MEDS ORDERED: RIVAROXABAN 15 MG TABLET (XARELTO) PO SCH (17:00)
--- NOTE | 2017-10-06 18:10 | Short Stay Summary ---
History of Present Illness History of Present Illness Reason for visit/HPI This is an 82 year old female with a know history of CAD who was brought to the emergency room via EMS with weakness and subjective fever. She has had a mild cough as well. She also reported pain in her epigastric area and under her ribs. There was no source of infection found but she was hypertensive and it was decided to admit her for cardiac rule out. Date of Admission Oct 05, 2017 at 11:50 pm Date of Discharge Oct 06, 2017 at 2:00 pm Time Seen by Provider: 12:30 Attending Physician Maine Dickey DO Admitting Physician Mi Norton DO Consult Allergies and Home Medications Allergies Coded Allergies: No Known Drug Allergies (Unverified , 04/15/13) Home Medications Amiodarone HCl 200 Mg Tablet, 200 MG PO BID, (Reported) Atorvastatin Calcium 40 Mg Tablet, 40 MG PO HS, (Reported) Bisacodyl 5 Mg Tablet.dr, 15 MG PO Q72H, (Reported) Cholecalciferol (Vitamin D3) 1,000 Unit Tablet, 2,000 UNIT PO DAILY, (Reported) Clopidogrel Bisulfate 75 Mg Tablet, 75 MG PO DAILY, #30 Ref 6 Prescribed by: RAMY LATHAM on 08/31/17 0854 Famotidine 20 Mg Tablet, 20 MG PO BID, #60 Prescribed by: MI NORTON on 10/06/17 1240 Furosemide 20 Mg Tablet, 20 MG PO DAILY, #60 take one tablet daily Take additional tablet as needed for shortness of breath and swelling Prescribed by: RAMY LATHAM on 08/31/17 0854 Glimepiride 2 Mg Tablet, 2 MG PO DAILY, (Reported) Losartan Potassium 25 Mg Tablet, 25 MG PO DAILY, #30 Ref 3 Prescribed by: RAMY LATHAM on 08/31/17 0854 Magnesium Oxide 250 Mg Tablet, 250 MG PO BID, (Reported) Metformin HCl 500 Mg Tab.er.24h, 1,000 MG PO DAILY, (Reported) Multivitamin 1 Each Tablet, 1 TAB PO DAILY, (Reported) Potassium Chloride 10 Meq Tablet.er, 10 MEQ PO DAILY, (Reported) Propranolol HCl 80 Mg Cap.sa.24h, 80 MG PO DAILY, (Reported) Rivaroxaban 15 Mg Tablet, 15 MG PO DAILY@1700, #30 Ref 3 Prescribed by: RAMY LATHAM on 08/31/17 0854 Past Xeerbvf-Mxmpwz-Flanrd Hx Patient Social History Alcohol Use: Denies Use Recreational Drug Use: No Smoking Status: Never a Smoker 2nd Hand Smoke Exposure: No Physical Abuse Screen: No Sexual Abuse: No Recent Foreign Travel: No Contact w/other who traveled: No Recent Hopitalizations: Yes Recent Infectious Disease Expo: No Immunizations Up To Date Tetanus Booster (TDap): Unknown Date of Pneumonia Vaccine: Sep 04, 2013 Date of Influenza Vaccine: Aug 28, 2017 Seasonal Allergies Seasonal Allergies: No Surgeries Yes (renzaid steint) Cardiac, CABG, Eye Surgery, Hysterectomy, Orthopedic, Tonsillectomy Respiratory Yes Asthma Currently Using CPAP: No Currently Using BIPAP: No Cardiovascular Yes Atrial Fibrillation, Chronic Edema/Swelling, Coronary Artery Disease, Heart Murmur, High Cholesterol, Hypertension, Irregular Heartbeat, Peripheral Vascular , Valvular Heart Disease Neurological No 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 System : No Hx 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 Disorders: No Sexually Transmitted Disease: No HIV/AIDS: No 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 Genitourinary Yes (RENAL ARTERY STENT) UTI-Chronic Gastrointestinal Yes Gastroesophageal Reflux, Chronic Constipation Musculoskeletal Yes Arthritis Endocrine History of Endocrine Disorders: Yes (NON-COMPLIANT WITH MEDICATIONS AND NEVER CHECKS BLOOD GLUCOSE) Endocrine Disorders: Diabetes, Non-Insulin dep HEENT History of HEENT Disorders: Yes (S/P CATARACT SURGERY) HEENT Disorders: Cataract Cancer No Psychosocial History of Psychiatric Problem: Yes Behavioral Health Disorders: Anxiety Integumentary History of Skin or Integumenta: No Blood Transfusions History of Blood Disorders: No Family Medical History Family Hx: Colon cancer 19 FATHER G8 BROTHER Diabetes mellitus 19 FATHER Hypertension 19 MOTHER Myocardial infarction 19 MOTHER Constitutional: fever, weakness EENTM: nose congestion Respiratory: cough, short of breath Cardiovascular: No no symptoms reported, No see HPI, No chest pain, No edema, No Hx of Intervention, No palpitations, No syncope, No vascular heart diseas, No other Gastrointestinal: heartburn Genitourinary: No no symptoms reported, No see HPI, No decreased output, No discharge, No dysuria, No frequency, No hematuria, No hesitancy, No incontinence , No nocturia, No pain, No other Skin: other (recent bruising and skin tears) Psychiatric/Neurological: Anxiety, Tremors, Weakness Physical Exam Vital Signs Vital Sign - Last 12Hours 10/05/17 10/05/17 21:49 22:05 Temp 95.8 Pulse 56 Resp 22 B/P (MAP) 203/113 (143) Pulse Ox 100 O2 Delivery Nasal Cannula O2 Flow Rate 2.00 FiO2 100 Capillary Refill : Less Than 3 Seconds General Appearance: No Apparent Distress HEENT: Normal ENT Inspection Neck: Non Tender, Supple Respiratory: Lungs Clear Cardiovascular: Regular Rate, Rhythm, Systolic Murmur, Gallop/S4 Gastrointestinal: Normal Bowel Sounds, Non Tender, Soft Rectal: Deferred Extremity: Non Tender, No Calf Tenderness, No Pedal Edema Neurologic/Psychiatric: Alert, Oriented x3 Skin: Warm/Dry, Ecchymosis (senile to arms) Comments Laboratory Tests 10/05/17 22:05: White Blood Count 10.5, Red Blood Count 4.10L, Hemoglobin 12.7, Hematocrit 38, Mean Corpuscular Volume 92, Mean Corpuscular Hemoglobin 31, Mean Corpuscular Hemoglobin Concent 34, Red Cell Distribution Width 13.1, Platelet Count 249, Mean Platelet Volume 10.5H, Neutrophils (%) (Auto) 60, Lymphocytes (%) (Auto) 28 , Monocytes (%) (Auto) 7, Eosinophils (%) (Auto) 4, Basophils (%) (Auto) 0, Neutrophils # (Auto) 6.2, Lymphocytes # (Auto) 3.0, Monocytes # (Auto) 0.8, Eosinophils # (Auto) 0.5H, Basophils # (Auto) 0.0, Prothrombin Time 22.6H, INR Comment 2.0H, Activated Partial Thromboplast Time 39H, Sodium Level 131L, Potassium Level 5.4H, Chloride Level 94L, Carbon Dioxide Level 22, Anion Gap 15H , Blood Urea Nitrogen 21H, Creatinine 1.32H, Estimat Glomerular Filtration Rate 38, BUN/Creatinine Ratio 16, Glucose Level 111H, Lactic Acid Level 1.26, Calcium Level 9.7, Magnesium Level 2.6H, Total Bilirubin 0.6, Aspartate Amino Transf (AST/SGOT) 47H, Alanine Aminotransferase (ALT/SGPT) 32, Alkaline Phosphatase 56, Troponin I < 0.30, C-Reactive Protein High Sensitivity 0.05, Total Protein 8.2, Albumin 4.2 10/05/17 22:24: Glucometer 111H 10/05/17 23:59: Urine Color YELLOW, Urine Clarity CLEAR, Urine pH 7, Urine Specific Green 1.005L, Urine Protein NEGATIVE, Urine Glucose (UA) NEGATIVE, Urine Ketones NEGATIVE, Urine Nitrite NEGATIVE, Urine Bilirubin NEGATIVE, Urine Urobilinogen NORMAL, Urine Leukocyte Esterase 1+H, Urine RBC (Auto) 1+H, Urine RBC 0-2, Urine WBC 0-2, Urine Squamous Epithelial Cells 2-5, Urine Crystals NONE, Urine Bacteria TRACE, Urine Casts NONE, Urine Mucus NEGATIVE, Urine Culture Indicated NO 10/06/17 04:40: White Blood Count 7.5, Red Blood Count 3.40L, Hemoglobin 10.7L, Hematocrit 32L, Mean Corpuscular Volume 93, Mean Corpuscular Hemoglobin 32, Mean Corpuscular Hemoglobin Concent 34, Red Cell Distribution Width 13.1, Platelet Count 200, Mean Platelet Volume 10.2, Neutrophils (%) (Auto) 60, Lymphocytes (%) (Auto) 28 , Monocytes (%) (Auto) 8, Eosinophils (%) (Auto) 4, Basophils (%) (Auto) 0, Neutrophils # (Auto) 4.5, Lymphocytes # (Auto) 2.1, Monocytes # (Auto) 0.6, Eosinophils # (Auto) 0.3, Basophils # (Auto) 0.0, Sodium Level 134L, Potassium Level 4.5, Chloride Level 99, Carbon Dioxide Level 25, Anion Gap 10, Blood Urea Nitrogen 19H, Creatinine 1.15, Estimat Glomerular Filtration Rate 45, BUN/ Creatinine Ratio 17, Glucose Level 77, Calcium Level 9.0, Troponin I < 0.30, Triglycerides Level 57, Cholesterol Level 136, LDL Cholesterol Direct 57, VLDL Cholesterol 11, HDL Cholesterol 53 10/06/17 10:19: Troponin I < 0.30 10/06/17 11:08: Glucometer 162H Microbiology 10/05/17 Blood Culture - Preliminary, Resulted No growth 10/05/17 Influenza Types A,B Antigen (POONAM) - Final, Complete Clinical Quality Measures AMI/AHF: ASA po Prior to arrival: No Initial ECG Impression: Normal DVT/VTE Risk/Contraindication: VTE Addressed: Yes Risk Factor Score Per Nursin RFS Level Per Nursing on Admit: 2=Moderate Short Stay Diagnosis Discharge Diagnosis-Short Stay Admission Diagnosis: 1. Epigastric Pain 2. Acute URI 3. History of CAD 4. History of Atrial Fibrillation 5. Hypertensive Urgency Final Discharge Diagnosis: 1. Epigastric pain due to GERD--improved 2. Acute URI--stable 3. History of CAD--stable 4. Hypertensive Urgency--improved 5. History of Atrial Fibrillation--stable 6. Diabetes mellitus II--stable Conclusion Labs Laboratory Tests 10/05/17 22:05: White Blood Count 10.5, Red Blood Count 4.10L, Hemoglobin 12.7, Hematocrit 38, Mean Corpuscular Volume 92, Mean Corpuscular Hemoglobin 31, Mean Corpuscular Hemoglobin Concent 34, Red Cell Distribution Width 13.1, Platelet Count 249, Mean Platelet Volume 10.5H, Neutrophils (%) (Auto) 60, Lymphocytes (%) (Auto) 28 , Monocytes (%) (Auto) 7, Eosinophils (%) (Auto) 4, Basophils (%) (Auto) 0, Neutrophils # (Auto) 6.2, Lymphocytes # (Auto) 3.0, Monocytes # (Auto) 0.8, Eosinophils # (Auto) 0.5H, Basophils # (Auto) 0.0, Prothrombin Time 22.6H, INR Comment 2.0H, Activated Partial Thromboplast Time 39H, Sodium Level 131L, Potassium Level 5.4H, Chloride Level 94L, Carbon Dioxide Level 22, Anion Gap 15H , Blood Urea Nitrogen 21H, Creatinine 1.32H, Estimat Glomerular Filtration Rate 38, BUN/Creatinine Ratio 16, Glucose Level 111H, Lactic Acid Level 1.26, Calcium Level 9.7, Magnesium Level 2.6H, Total Bilirubin 0.6, Aspartate Amino Transf (AST/SGOT) 47H, Alanine Aminotransferase (ALT/SGPT) 32, Alkaline Phosphatase 56, Troponin I < 0.30, C-Reactive Protein High Sensitivity 0.05, Total Protein 8.2, Albumin 4.2 10/05/17 22:24: Glucometer 111H 10/05/17 23:59: Urine Color YELLOW, Urine Clarity CLEAR, Urine pH 7, Urine Specific Green 1.005L, Urine Protein NEGATIVE, Urine Glucose (UA) NEGATIVE, Urine Ketones NEGATIVE, Urine Nitrite NEGATIVE, Urine Bilirubin NEGATIVE, Urine Urobilinogen NORMAL, Urine Leukocyte Esterase 1+H, Urine RBC (Auto) 1+H, Urine RBC 0-2, Urine WBC 0-2, Urine Squamous Epithelial Cells 2-5, Urine Crystals NONE, Urine Bacteria TRACE, Urine Casts NONE, Urine Mucus NEGATIVE, Urine Culture Indicated NO 10/06/17 04:40: White Blood Count 7.5, Red Blood Count 3.40L, Hemoglobin 10.7L, Hematocrit 32L, Mean Corpuscular Volume 93, Mean Corpuscular Hemoglobin 32, Mean Corpuscular Hemoglobin Concent 34, Red Cell Distribution Width 13.1, Platelet Count 200, Mean Platelet Volume 10.2, Neutrophils (%) (Auto) 60, Lymphocytes (%) (Auto) 28 , Monocytes (%) (Auto) 8, Eosinophils (%) (Auto) 4, Basophils (%) (Auto) 0, Neutrophils # (Auto) 4.5, Lymphocytes # (Auto) 2.1, Monocytes # (Auto) 0.6, Eosinophils # (Auto) 0.3, Basophils # (Auto) 0.0, Sodium Level 134L, Potassium Level 4.5, Chloride Level 99, Carbon Dioxide Level 25, Anion Gap 10, Blood Urea Nitrogen 19H, Creatinine 1.15, Estimat Glomerular Filtration Rate 45, BUN/ Creatinine Ratio 17, Glucose Level 77, Calcium Level 9.0, Troponin I < 0.30, Triglycerides Level 57, Cholesterol Level 136, LDL Cholesterol Direct 57, VLDL Cholesterol 11, HDL Cholesterol 53 10/06/17 10:19: Troponin I < 0.30 10/06/17 11:08: Glucometer 162H Microbiology 10/05/17 Blood Culture - Preliminary, Resulted No growth 10/05/17 Influenza Types A,B Antigen (POONAM) - Final, Complete Conclusion/Plan The patient was admitted to the ICU as a cardiac stepdown patient and underwent repeat cardiac enzymes which were negative as well as was monitored on telemetry and her rate was controlled. Her blood pressure stabilized and she had no further epigastric pain and denied chest pain. She had no fever and her cough was only mild. She was anxious to go home after cardiac evaluation. She was covered with protonix and will resume pepcid on discharge but increase the pepcid to BID dosing. She will also hold her aspirin on discharge. MI NORTON DO Oct 06, 2017 6:10 pm
[2017-10-06] MEDS ORDERED: ATORVASTATIN 40 MG (LIPITOR) TABLET PO SCH ×2 (21:00)
[2017-10-07] MEDS ORDERED: PANTOPRAZOLE 40 MG (PROTONIX) TAB PO SCH (07:00)
[2017-10-07] MEDS ORDERED: ASPIRIN E.C. 81 MG (ECOTRIN) TAB PO SCH (09:00)
[2017-10-07] MEDS ORDERED: metFORMIN XR 500 MG (GLUCOPHAGE XR) TAB PO SCH (09:00)
[2017-10-07] MEDS ORDERED: VITAMIN D3 2000 UNIT PO SCH (09:00)
[2017-10-07] MEDS ORDERED: [UNRECOGNIZED DRUG - OTHER] PO SCH (09:00)
== END 2017-10-06 12:40 | disposition home or self-care (01) ==
LOC: EDUNIT# 21:49 → ER 21:50 → ICU 23:50
PROVIDERS: ADMIT Internal Medicine; ATTEND Internal Medicine
DX: K21.9 Gastro-esophageal reflux disease without esophagitis (principal); J06.9 Acute upper respiratory infection, unspecified; R07.2 Precordial pain; I16.0 Hypertensive urgency; I25.10 Atherosclerotic heart disease of native coronary artery without angina pectoris; I48.0 Paroxysmal atrial fibrillation; E11.9 Type 2 diabetes mellitus without complications; Z91.19 Patient's noncompliance with other medical treatment and regimen; J45.909 Unspecified asthma, uncomplicated; R94.31 Abnormal electrocardiogram [ECG] [EKG]; I44.7 Left bundle-branch block, unspecified; F41.9 Anxiety disorder, unspecified; R53.1 Weakness; R25.1 Tremor, unspecified; E87.5 Hyperkalemia; R01.1 Cardiac murmur, unspecified; I27.20 Pulmonary hypertension, unspecified; I34.0 Nonrheumatic mitral (valve) insufficiency; E78.00 Pure hypercholesterolemia, unspecified; R60.9 Edema, unspecified; I73.9 Peripheral vascular disease, unspecified; K59.09 Other constipation; Z95.1 Presence of aortocoronary bypass graft; Z95.5 Presence of coronary angioplasty implant and graft; Z79.84 Long term (current) use of oral hypoglycemic drugs; Z79.01 Long term (current) use of anticoagulants; Z79.02 Long term (current) use of antithrombotics/antiplatelets; Z79.82 Long term (current) use of aspirin; Z82.49 Family history of ischemic heart disease and other diseases of the circulatory system; Z87.01 Personal history of pneumonia (recurrent)
CPT/HCPCS: 36415; 71045; 80048; 80053; 80061; 81000; 82962; 83605; 83735; 84484; 85025; 85610; 85730; 86141; 87040; 87804; 93005

== ENCOUNTER 2017-11-30 06:39 | Day surgery (SDC) | payer MEDICARE ==
[2017-11-30] VITALS (13 sets, daily range): BP systolic 140–193; BP diastolic 58–90
[~2017-11-30] VITALS: Ht 165.1 cm; Wt 62.6 kg
[~2017-11-30 06:39] MED LIST changes: +ACET-77 PO; +ALPR0.254 PO; +CEFD300C3 PO; +CHOL20003 PO; +CLOP75TA69 PO; +FAMO1TAB31 PO; +FAMO20TA45 PO; +LOSA100T28 PO; +MAGN250T35 PO; +METF500T3 PO; +MULT-878 PO; +PANT40TA2 PO; +PARO20TA5 PO
[2017-11-30] MEDS ORDERED: HEParin (CATH LAB) 2,000 ML IV ONE (06:48)
[2017-11-30] MEDS ORDERED: NS IV 1000 ML 1,000 ML ONE (06:48)
[2017-11-30] MEDS ORDERED: LIDOCAINE 1% INJ 50 ML (XYLOCAINE) VIAL ONE (06:48)
[2017-11-30] MEDS ORDERED: NS IV 1000 ML 1,000 ML IV SCH (07:00)
[2017-11-30 07:19] LABS: HEMOGLOBIN 11.6 G/DL (11.5-16.0); MEAN PLATELET VOLUME 10.8 FL (7.4-10.4); RED BLOOD COUNT 3.68 10^6/uL (4.35-5.85); RED CELL DISTRIBUTION WIDTH 13.6 % (10.0-14.5)
[2017-11-30 07:36] LABS: ALBUMIN 4.1 GM/DL (3.2-4.5); BILIRUBIN,TOTAL 0.6 MG/DL (0.1-1.0); CALCIUM 9.2 MG/DL (8.5-10.1); CREATININE SERUM 1.43 MG/DL (0.60-1.30); POTASSIUM 3.4 MMOL/L (3.6-5.0)
[2017-11-30] MEDS ORDERED: AMLO5TAB2 PO (07:36)
[2017-11-30] MEDS ORDERED: PARO-49 PO (07:36)
[2017-11-30] MEDS ORDERED: ALPR0.254 PO ×2 (07:36)
[2017-11-30] MEDS ORDERED: FAMO20TA3 PO (07:36)
[2017-11-30] MEDS ORDERED: PANT40TA3 PO (07:36)
[2017-11-30] MEDS ORDERED: LOSA100T28 PO (07:36)
[2017-11-30] MEDS ORDERED: PROP60TA17 PO (07:36)
[2017-11-30] MEDS ORDERED: MIDAZOLAM 5 MG/5 ML (VERSED) VIAL ONE (07:52)
[2017-11-30] MEDS ORDERED: fentaNYL INJECTION 100 MCG/2 ML AMP ONE (07:52)
--- NOTE | 2017-11-30 07:55 | Cardiac Procedure Note-CS/ASA ---
Pre-Procedure Note Pre-Op Procedure Note H&P Reviewed The H&P was reviewed, patient examined and no changes noted. Date H&P Reviewed: Nov 30, 2017 Time H&P Reviewed: 07:54 Conscious Sedation Pre-Proced Time Reviewed: 07:54 ASA Class: 3 Airway Mallampati Classification: ([place] appropriate class) I. II. III, IV Lungs Heart ASA score ASA 1: a normal healthy patient ASA 2: a patient with a mild systemic disease (mid diabetes, controlled hypertension, obesity x ASA 3: a patient with a severe systemic disease that limits activity (angina , COPD, prior Myocardial infarction) ASA 4: a patient with an incapacitating disease that is a constant threat to life (CHF, renal failure) ASA 5: a moribund patient not expected to survive 24 hrs. (ruptured aneurysm) ASA 6: a declared brain patient whose organs are being harvested. For emergent operations, add the letter E after the classification Grade 3 Sedation Plan: Analgesia, Amnesia, Plan communicated to team members, Discussed options with patient/fam, Discussed risks with patient/fam Note The patient is an appropriate candidate to undergo the planned procedure, sedation, and anesthesia. The patient immediately re-assessed prior to indication. RAMY LATHAM MD Nov 30, 2017 07:55
--- NOTE | 2017-11-30 08:01 | Diagnostic Imaging Report ---
INDICATION: Pre-heart catheterization with possible coronary angioplasty and stent. Comparison study: Chest from October 12. FINDINGS: Frontal view the chest demonstrates borderline cardiomegaly with previous coronary artery bypass graft changes. The vascularity is normal. The lungs are clear. IMPRESSION: Stable chest. Dictated by: Dictated on workstation # [id number]
[2017-11-30] MEDS ORDERED: ENALAPRILAT 2.5 MG/2 ML (VASOTEC) VIAL IV ONE (08:21)
[2017-11-30] MEDS ORDERED: ADENOSINE 3 MG/1 ML (ADENOSCAN) 30ML VIAL IV ONE (08:24)
[2017-11-30] MEDS ORDERED: HEParin 1000 UNIT/ML (10ML VIAL) FOR BOLUS ONE (08:24)
[2017-11-30 08:47] LABS: INR 1.1 (0.8-1.4); PROTHROMBIN TIME PATIENT 14.2 SEC (12.2-14.7)
[2017-11-30] MEDS ORDERED: CLOPIDOGREL 300 MG (PLAVIX) TABLET PO ONE (09:30)
[2017-11-30] MEDS ORDERED: ASPIRIN 325 MG (5 GR) TABLET ONE (09:30)
--- NOTE | 2017-11-30 09:43 | Cardiac Cath Report ---
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 Patient has history of renal artery stenosis that was reported to be [id number] in the past. She has renal insufficiency and malignant hypertension, resistant to multiple medication. After explaining the procedure to the patient, all pros and cons were explained, all questions were answered. The patient signed the consent and then she was placed on the cardiac catheterization laboratory. The patient was placed on the cardiac catheterization laboratory. Groin was prepped SL fashion local anesthesia was used. Sheath placed in the Right femoral artery. Sneha right and left catheter were used to access the coronary system. Vein Graft evaluated. KOHLI was not evaluated, it is known to be patent to the LAD Sneha right was used to cross the valve, no left ventricular gram was done to limit the contrast exposure at this point I decided to proceed with FFR evaluation to the circumflex artery. She was given 4000 units of heparin then JL guide was used, FFR wire was advanced and parked in the circumflex artery area Baseline was 0.96, given a La drip for 2 minutes and FFR was 0.92. The lesion was deemed borderline and medical therapy is recommended. Patient's blood pressure was 180 during the procedure, I decided to evaluate the renal arteries due to the fact that I use only 20 mL of contrast during the initial coronary evaluation Sneha right catheter was used to intubate the left renal artery angiogram was done then it used to intubate the right renal artery and selective angiogram was done. Severe stenosis at the right renal artery was noted. Patient was given additional 2000 units of heparin on top of the 4000 unit that were previously given IM curved short guide was advanced. BMW wire was advanced with difficulty across the lesion and parked distally. I used 4.0 balloon inflated multiple times then I attempted to advance a stent without success. The lesion was difficult to cross, the pressure gradient across the lesion was over 100 mmHg I advanced a stork wire and tried to use 60 balloon and I was unable to cross the lesion I removed the wire and the balloon and reintroduced a BMW wire and advanced [place] 4.0x15 again into the ostium of the right renal artery and multiple inflations were done at her high pressure up to 14 tien with improvement then I does the guide over the balloon and parted in the proximal right renal artery then I exchanged the balloon into HERCULINK 6x15 parted carefully at the ostium of the renal artery and inflated to its nominal size under 11 tien, angiogram showed excellent results, gradient has improved significantly. At the end of the procedure the sheath was removed. 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, mild disease at the midportion Left Anterior Descending has severe disease, KOHLI to LAD is known to be patent from the angiogram of August 2017 Left Circumflex has moderate stenosis, FFR across the lesion that appeared angiographically to be significant was not significant Right Coronory Artery has patent stent at the proximal and midportion KOHLI is known to be patent Vein Graft evaluation showed a stump of an occluded graft LV Gram was not done pressure was measured Left renal artery angiogram showed very small artery with no disease Right renal artery angiogram showed heavily calcified artery with severe stenosis at the ostium with 100 mmHg gradient, calm Plex intervention using multiple balloon with high pressure inflation then deployment of HERCULINK stent 6x15 inflated to its nominal size with excellent results CONCLUSION: 1. Patent stent in the proximal and mid right coronary artery with moderate disease distally 2. 60 percent stenosis in the circumflex artery, angiographically appeared to be significant but FFR at baseline was 0.96 and after Adenosine was 0.92 3. Occluded vein graft to the right coronary artery, diagonal artery and obtuse marginal branches, known to be occluded 4. Severe stenosis at the ostial right coronary artery that is heavily calcified resistant lesion, couplets intervention with multiple balloons and high pressure inflation then deployment of HERCULINK stent 6x15 with excellent results, gradient that started at 100 mmHg has improved significantly after the procedure 5. Normal left ventricular end-diastolic pressure DISCUSSION AND RECOMMENDATION: I will continue maximizing medical therapy Anesthesia Type: Conscious Sedation Estimated blood loss (mL): 30 ml Contrast Amount: 85 ml Total Radiation Dose: 330 mGy Post-Procedure Diagnosis Post-operative diagnosis: Coronary artery disease Renal artery stenosis Malignant hypertension Hyperlipidemia RAMY LATHAM MD Nov 30, 2017 09:43
[2017-11-30] MEDS ORDERED: PATIENT MAY USE OWN MEDS, ALL PO SCH (09:45)
[2017-11-30] MEDS ORDERED: PROPRANOLOL 60 MG PO SCH (11:15)
[2017-11-30] MEDS: PANTOPRAZOLE 40 MG (PROTONIX) TAB PO SCH ×2 (11:40→20:28)
[2017-11-30] MEDS: FAMOTIDINE 20 MG (PEPCID) TABLET PO SCH ×2 (11:40→20:27)
[2017-11-30] MEDS: NS IV 1000 ML 1,000 ML IV SCH ×2 (11:41→15:52)
[2017-11-30] MEDS ORDERED: RIVAROXABAN 15 MG TABLET (XARELTO) PO SCH (17:00)
[2017-11-30] MEDS ORDERED: ATORVASTATIN 40 MG (LIPITOR) TABLET PO SCH (21:00)
[2017-12-01] VITALS: BP 150/64
[2017-12-01] MEDS: NS IV 1000 ML 1,000 ML IV SCH (01:07)
[2017-12-01 03:25] VITALS: BP 144/69
[2017-12-01 04:20] LABS: HEMOGLOBIN 9.8 G/DL (11.5-16.0); MEAN PLATELET VOLUME 10.8 FL (7.4-10.4); RED BLOOD COUNT 3.1 10^6/uL (4.35-5.85); RED CELL DISTRIBUTION WIDTH 13.5 % (10.0-14.5); WHITE BLOOD COUNT 5.9 10^3/uL (4.3-11.0)
[2017-12-01 04:46] LABS: CALCIUM 8.4 MG/DL (8.5-10.1); CREATININE SERUM 1.03 MG/DL (0.60-1.30); POTASSIUM 3.1 MMOL/L (3.6-5.0)
[2017-12-01] MEDS ORDERED: MAGNESIUM OXIDE (MAG-OX)400 MG TAB PO SCH (08:00)
--- NOTE | 2017-12-01 08:13 | Cardiology Progress Note ---
Subjective Date Seen by Provider: Dec 01, 2017 Time Seen by Provider: 08:11 Subjective/Events-last exam Patient is feeling well, blood pressure is better controlled, groin is healing well. Denied any chest pain or shortness of breath Review of Systems General: No Chills, No Night Sweats, No Fatigue, No Malaise, No Appetite, No Other HEENT: No Head Aches, No Visual Changes, No Eye Pain, No Ear Pain, No Dysphasia , No Sinus Congestion, No Post Nasal Drip, No Sore Throat, No Other Pulmonary: No Dyspnea, No Cough, No Pleuritic Chest Pain, No Other Cardiovascular: No: Chest Pain, Palpitations, Orthopnea, Paroxysmal Noc. Dyspnea, Edema, Lt Headedness, Other Objective-Cardiology Exam Last Set of Vital Signs Vital Signs 12/01/17 03:25 Temp 98.0 Pulse 56 Resp 18 B/P (MAP) 144/69 (94) Pulse Ox 96 O2 Delivery Room Air Capillary Refill : Less Than 3 Seconds I&O Intake and Output 12/01/17 00:00 Intake Total 1480 ml Output Total 1200 ml Balance 280 ml Intake Oral 480 ml IV Total 1000 ml Output Urine Total 1200 ml General: Alert, Oriented X3, Cooperative HEENT: Atraumatic, PERRLA Neck: Supple, No JVD, No Thyromegaly Lungs: Clear to Auscultation, Normal Air Movement Heart: Regular Rate, Normal S1, Normal S2, No Murmurs Abdomen: Normal Bowel Sounds, Soft, No Tenderness, No Hepatosplenomegaly, No Masses Extremities: No Clubbing, No Cyanosis, No Edema, Normal Pulses, No Tenderness/ Swelling Skin: No Rashes, No Breakdown, No Significant Lesion Neuro: Normal Gait, Normal Speech, Strength at 5/5 X4 Ext, Normal Tone, Sensation Intact Psych/Mental Status: Mental Status NL, Mood NL Results Lab Laboratory Tests 12/01/17 03:15 A/P-Cardiology Admission Diagnosis Coronary artery disease Renal artery stenosis Malignant hypertension Chronic renal insufficiency Hyperlipidemia Assessment/Plan Coronary artery disease, cardiac catheterization showed patent stent, FFR to the circumflex artery was acceptable for medical therapy, after Adenosine the ratio was 0.92 at lowest. Continue medical therapy Malignant hypertension, better control after stenting the renal artery Renal artery stenosis, significant gradient across the ostial stenosis of 100 mmHg. Successful deployment of a stent with excellent results. Hyperlipidemia, continue current medication Hypokalemia, replace and monitor Patient is going home today RAMY LATHAM MD Dec 01, 2017 08:13
--- NOTE | 2017-12-01 08:19 | Discharge Inst-Post CATH ---
Discharge Inst-CATH Post Cardiac Cath D/C Inst Follow Up/Plan Appointment with Dr. Craig's office in 2-4 weeks CARDIAC CATH DISCHARGE INSTRUCTIONS *Hold Metformin for 48 hours post heart cath. ACTIVITY * Go Home directly and rest. * Limit activity of the leg (or wrist if it was used) for 7 days including aerobics, swimming, jogging, bicycling, etc. * Restrict stair-climbing for 7 days if possible, if not, climb up with your non -cath leg, then bring together on the same step. * Avoid lifting, pushing, pulling or excessive movement of the affected extremity for 7 days. * Customary sexual activity may be resumed after 2 days-use caution not to use a position that strains or causes pain to the affected extremity. * No driving for 24 hours. * NO SMOKING. * Avoid straining for bowel movements for 7 days. * Gentle walking on level ground is allowed. * Returning to work will depend on the type of procedure and the results. Your doctor will discuss this with you. CALL YOUR DOCTOR FOR ANY OF THE FOLLOWING: *If bleeding from the puncture site occurs- Apply gentle pressure to site with clean cloth and call your doctor or EMS. * If a knot or lump forms under the skin, increases in size, or causes pain. * If bruising appears to be worsening or moving further down your leg instead of disappearing. * Temperature above 101 F. CARE OF YOUR GROIN INCISION; * Bruising or purple discoloration of the skin near the puncture site is common. * You may shower only, no bathtub bathing for 5 days. Be careful to avoid slipping as your leg may feel stiff. * If a closure device was used on your femoral artery, please see the attached guide regarding care of the device and your leg. * REMOVE the dressing from your groin the next day after your procedure in the shower. CARE OF YOUR WRIST INCISION; * Bruising or purple discoloration of the skin near the puncture site is common. * You may shower. * DO NOT submerge wrist. * Remove dressing in 24 hours. RAMY CRAIG MD Dec 01, 2017 08:19
[2017-12-01 08:30] VITALS: BP 156/69
[2017-12-01] MEDS ORDERED: KCL 20 MEQ TAB (K-DUR) PO NR (08:30)
[2017-12-01] MEDS ORDERED: CLOPIDOGREL 75 MG (PLAVIX) TABLET PO SCH (09:00)
[2017-12-01] MEDS ORDERED: FUROSEMIDE 20 MG (LASIX) TAB PO SCH (09:00)
[2017-12-01] MEDS ORDERED: KCL 10 MEQ TAB (MICRO K) PO SCH (09:00)
[2017-12-01] MEDS ORDERED: amLODIPine 5 MG (NORVASC) TAB PO SCH (09:00)
[2017-12-01] MEDS ORDERED: ASPIRIN E.C. 81 MG (ECOTRIN) TAB PO SCH (09:00)
[2017-12-01] MEDS ORDERED: AMIODARONE 200 MG (CORDARONE) TAB PO SCH (09:00)
[2017-12-01] MEDS ORDERED: LOSARTAN 100 MG (COZAAR) TABLET PO SCH (09:00)
[2017-12-01] MEDS ORDERED: PARoxetine 20 MG (PAXIL) TAB PO SCH (09:00)
[2017-12-01] MEDS ORDERED: ALPRAZolam 0.25 MG (XANAX) TAB PO SCH (09:00)
== END 2017-12-01 09:15 | disposition home or self-care (01) ==
LOC: CATH 06:39 → ICU 10:19 → CATH 12-01 09:15
PROVIDERS: ATTEND Internal Medicine Cardiovascular Disease
DX: I25.10 Atherosclerotic heart disease of native coronary artery without angina pectoris (principal); I70.1 Atherosclerosis of renal artery; I10 Essential (primary) hypertension; E11.9 Type 2 diabetes mellitus without complications; I48.0 Paroxysmal atrial fibrillation; E78.5 Hyperlipidemia, unspecified; Z95.5 Presence of coronary angioplasty implant and graft; Z95.1 Presence of aortocoronary bypass graft; Z79.899 Other long term (current) drug therapy; Z11.2 Encounter for screening for other bacterial diseases
CPT/HCPCS: 36252; 36415; 37236; 71045; 80048; 80053; 85027; 85347; 85610; 85730; 87081; 93459; 93571

== ENCOUNTER 2017-12-22 15:35 | Inpatient (IN) | payer MEDICARE ==
[~2017-12-22] VITALS: Ht 165.1 cm; Wt 62.8 kg
[~2017-12-22 15:35] MED LIST changes: +FAMO20TA3 PO; +PANT40TA3 PO; +PARO-49 PO; +PROP60TA17 PO
[2017-12-22] MEDS ORDERED: NS IV 500 ML 500 ML IV ONE (16:29)
--- NOTE | 2017-12-22 16:41 | ED GU-Female ---
General Stated Complaint: VAGINAL BLEEDING Source: patient Exam Limitations: no limitations History of Present Illness Date Seen by Provider: Dec 22, 2017 Time Seen by Provider: 16:20 Initial Comments Here with family and reports vaginal bleeding 2 today. States that she went to go to the bathroom earlier and had blood from her vagina. She states it is definitely not from her bottom but it is from her vagina. She had another episode later. She does complain of burning pain with urination. Never had anything like this before. She is on 2 blood thinners. Denies nausea or vomiting but does report weakness and dizziness. Does have history of coronary artery disease with stenting and bypass Timing/Duration: this afternoon Severity/Quality: moderate, burning Location: vaginal Radiation: none Activities at Onset: none Prior Genitourinary Problems: none Sexual Varina History: not active Modifying Factors: Worsens With Urinating Associated Symptoms: dysuria, No fever/chills, No lower back pain, No nausea/ vomiting, No nocturia, No urinary frequency Allergies and Home Medications Allergies Coded Allergies: No Known Drug Allergies (Unverified , 10/12/17) Home Medications Acetaminophen 500 Mg Tablet, 500 MG PO Q6HR PRN for PAIN-MILD Prescribed by: MI DENG on 10/14/17 1207 Alprazolam 0.25 Mg Tablet, 0.125 MG PO DAILY, (Reported) Alprazolam 0.25 Mg Tablet, 0.25 MG PO EVENING, (Reported) Amiodarone HCl 200 Mg Tablet, 200 MG PO DAILY, (Reported) Amlodipine Besylate 5 Mg Tablet, 5 MG PO DAILY, (Reported) Atorvastatin Calcium 40 Mg Tablet, 40 MG PO HS, (Reported) Bisacodyl 5 Mg Tablet.dr, 15 MG PO DAILY, (Reported) Cholecalciferol (Vitamin D3) 2,000 Unit Capsule, 2,000 UNIT PO DAILY, (Reported) Clopidogrel Bisulfate 75 Mg Tablet, 75 MG PO DAILY, (Reported) Famotidine 20 Mg Tablet, 20 MG PO BID, (Reported) Furosemide 20 Mg Tablet, 20 MG PO DAILY, (Reported) Furosemide 20 Mg Tablet, 20 MG PO DAILY PRN for SWELLING, (Reported) MAY TAKE AN ADDITIONAL DOSE IF NEEDED FOR SWELLING Losartan Potassium 100 Mg Tablet, 100 MG PO DAILY, (Reported) Magnesium Oxide 250 Mg Tablet, 250 MG PO BID, (Reported) Multivitamins-Min/FA/Ginkgo 1 Each Tablet, 1 TAB PO DAILY, (Reported) Pantoprazole Sodium 40 Mg Tablet.dr, 40 MG PO BID, (Reported) Paroxetine HCl 20 Mg Tablet, 20 MG PO DAILY, (Reported) Potassium Chloride 10 Meq Tablet.er, 10 MEQ PO DAILY, (Reported) Propranolol HCl 60 Mg Tablet, 60 MG PO DAILY, (Reported) Rivaroxaban 15 Mg Tablet, 15 MG PO 1700, (Reported) Patient Home Medication List Home Medication List Reviewed: Yes Constitutional: see HPI, No chills, dizziness, No fever, weakness EENTM: no symptoms reported Respiratory: no symptoms reported, No cough, No short of breath Cardiovascular: No chest pain, No palpitations Gastrointestinal: No diarrhea, No vomiting Genitourinary: see HPI, burning, hematuria, pain : No Musculoskeletal: no symptoms reported Skin: no symptoms reported All Other Systemes Reviewed Negative Unless Noted: Yes Past Wqypqaq-Ycbutp-Pqqcig Hx Patient Social History Alcohol Use: Denies Use Recreational Drug Use: No Smoking Status: Never a Smoker 2nd Hand Smoke Exposure: No Recent Foreign Travel: No Contact w/Someone Who Travel: No Recent Hopitalizations: Yes Immunizations Up To Date Tetanus Booster (TDap): Unknown Date of Pneumonia Vaccine: Sep 04, 2013 Date of Influenza Vaccine: Aug 28, 2017 Seasonal Allergies Seasonal Allergies: No Surgeries History of Surgeries: Yes Surgeries: Cardiac, CABG, Eye Surgery, Hysterectomy, Orthopedic, Tonsillectomy , Vascular Surgery Respiratory History of Respiratory Disorde: Yes Respiratory Disorders: Pneumonia Currently Using CPAP: No Currently Using BIPAP: No Cardiovascular History of Cardiac Disorders: Yes (HEART STENTS X2) Cardiac Disorders: Atrial Fibrillation, Chronic Edema/Swelling, Coronary Artery Disease, Heart Murmur, High Cholesterol, Hypertension, Irregular Heartbeat, Peripheral Vascular, Valvular Heart Disease Neurological History of Neurological Disord: Yes (TREMOR LEFT ARM) 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 System Hx 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 Disorders: No Sexually Transmitted Disease: No HIV/AIDS: No 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, 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 Genitourinary History of Genitourinary Disor: Yes (RENAL ARTERY STENT; SOME INCONTINENCE) Genitourinary Disorders: UTI-Chronic Gastrointestinal History of Gastrointestinal Di: Yes Gastrointestinal Disorders: Gastroesophageal Reflux, Chronic Constipation Musculoskeletal History of Musculoskeletal Dis: Yes Musculoskeletal Disorders: Arthritis Endocrine History of Endocrine Disorders: Yes (NON-COMPLIANT WITH MEDICATIONS AND NEVER CHECKS BLOOD GLUCOSE) Endocrine Disorders: Diabetes, Non-Insulin dep HEENT History of HEENT Disorders: Yes (S/P CATARACT SURGERY) HEENT Disorders: Cataract Cancer History of Cancer: No Psychosocial History of Psychiatric Problem: Yes Behavioral Health Disorders: Anxiety Integumentary History of Skin or Integumenta: No Blood Transfusions History of Blood Disorders: No Adverse Reaction to a Blood Tr: No Reviewed Nursing Assessment Reviewed/Agree w Nursing PMH: Yes Family Medical History Significant Family History: Heart Disease, Cancer, Diabetes, Hypertension Family Medial History: Colon cancer 19 FATHER G8 BROTHER Completed stroke DAUGHTER Diabetes mellitus 19 FATHER Hypertension 19 MOTHER Myocardial infarction 19 MOTHER Physical Exam Vital Signs Vital Signs - First Documented 12/22/17 16:30 Temp 98.3 Pulse 57 Resp 16 B/P (MAP) 169/77 (107) Pulse Ox 99 O2 Delivery Room Air Capillary Refill : General Appearance: WD/WN, no apparent distress HEENT: PERRL/EOMI, pharynx normal Neck: full range of motion, supple Cardiovascular: regular rate, rhythm, no murmur Respiratory: lungs clear, normal breath sounds Gastrointestinal: non tender, soft Genital/Rectal: blood at urethral meatus, other (normal external vaginal exam but blood surrounding the urethra with blood clot noted. Blood seems to be coming from the urethra.) Back: normal inspection, no CVA tenderness, no vertebral tenderness Extremities: non-tender, normal inspection Neurologic/Psychiatric: alert, oriented x 3 Skin: normal color, warm/dry Focused Exam Evaluation Lactate Level Laboratory Tests 12/22/17 16:40: Lactic Acid Level 2.00 Lactic Acid Level Laboratory Tests Test 12/22/17 16:40 Lactic Acid Level 2.00 MMOL/L (0.50-2.00) Progress/Results/Core Measures Suspected Sepsis SIRS Temperature: Pulse: Respiratory Rate: Laboratory Tests 12/22/17 16:40: White Blood Count 6.2 Blood Pressure / Mean: Laboratory Tests 12/22/17 16:40: Lactic Acid Level 2.00 Laboratory Tests 12/22/17 16:40: Creatinine 1.30, Platelet Count 260, Total Bilirubin 0.4 Results/Orders Lab Results Laboratory Tests Test 12/22/17 16:40 Range/Units White Blood Count 6.2 4.3-11.0 10^3/uL Red Blood Count 3.16 L 4.35-5.85 10^6/uL Hemoglobin 10.0 L 11.5-16.0 G/DL Hematocrit 31 L 35-52 % Mean Corpuscular Volume 98 80-99 FL Mean Corpuscular Hemoglobin 32 25-34 PG Mean Corpuscular Hemoglobin Concent 32 32-36 G/DL Red Cell Distribution Width 14.2 10.0-14.5 % Platelet Count 260 130-400 10^3/uL Mean Platelet Volume 10.7 H 7.4-10.4 FL Neutrophils (%) (Auto) 66 42-75 % Lymphocytes (%) (Auto) 24 12-44 % Monocytes (%) (Auto) 8 0-12 % Eosinophils (%) (Auto) 3 0-10 % Basophils (%) (Auto) 0 0-10 % Neutrophils # (Auto) 4.1 1.8-7.8 X 10^3 Lymphocytes # (Auto) 1.5 1.0-4.0 X 10^3 Monocytes # (Auto) 0.5 0.0-1.0 X 10^3 Eosinophils # (Auto) 0.2 0.0-0.3 10^3/uL Basophils # (Auto) 0.0 0.0-0.1 10^3/uL Urine Color YELLOW Urine Clarity VERY CLOUDY H Urine pH 5 5-9 Urine Specific [place] 1.020 1.016-1.022 Urine Protein 2+ H NEGATIVE Urine Glucose (UA) NEGATIVE NEGATIVE Urine Ketones NEGATIVE NEGATIVE Urine Nitrite NEGATIVE NEGATIVE Urine Bilirubin NEGATIVE NEGATIVE Urine Urobilinogen NORMAL NORMAL MG/DL Urine Leukocyte Esterase 3+ H NEGATIVE Urine RBC (Auto) 5+ H NEGATIVE Urine RBC 50-100 H /HPF Urine WBC TNTC H /HPF Urine Crystals NONE /LPF Urine Bacteria LARGE H /HPF Urine Casts NONE /LPF Urine Mucus NEGATIVE /LPF Urine Culture Indicated YES Sodium Level 136 135-145 MMOL/L Potassium Level 3.5 L 3.6-5.0 MMOL/L Chloride Level 101 98-107 MMOL/L Carbon Dioxide Level 25 21-32 MMOL/L Anion Gap 10 5-14 MMOL/L Blood Urea Nitrogen 16 7-18 MG/DL Creatinine 1.30 0.60-1.30 MG/DL Estimat Glomerular Filtration Rate 39 BUN/Creatinine Ratio 12 Glucose Level 178 H 70-105 MG/DL Lactic Acid Level 2.00 0.50-2.00 MMOL/L Calcium Level 9.3 8.5-10.1 MG/DL Total Bilirubin 0.4 0.1-1.0 MG/DL Aspartate Amino Transf (AST/SGOT) 31 5-34 U/L Alanine Aminotransferase (ALT/SGPT) 27 0-55 U/L Alkaline Phosphatase 69 40-136 U/L C-Reactive Protein High Sensitivity 0.13 0.00-0.50 MG/DL Total Protein 6.7 6.4-8.2 GM/DL Albumin 3.9 3.2-4.5 GM/DL My Orders Orders - MARILEE CLEMONS MD Cbc With Automated Diff (12/22/17 16:29) Comprehensive Metabolic Panel (12/22/17 16:29) Hs C Reactive Protein (12/22/17 16:29) Lactic Acid Analyzer (12/22/17 16:29) Ua Culture If Indicated (12/22/17 16:29) Blood Culture (12/22/17 16:29) Saline Lock/Iv-Start (12/22/17 16:29) Ns Iv 500 Ml (Sodium Chloride 0.9%) (12/22/17 16:29) Ceftriaxone Injection (Rocephin Injectio (12/22/17 17:30) Urine Culture (12/22/17 16:40) Medications Given in ED Current Medications Medications Dose Ordered Sig/Mony Route Start Time Stop Time Status Last Admin Dose Admin Ceftriaxone Sodium 1000 mg/ Sodium Chloride 100 ml @ 200 mls/hr ONCE ONCE IV 12/22/17 17:30 18 17:59 12/22/17 17:40 200 MLS/HR Sodium Chloride 500 ml @ 0 mls/hr Q0M ONCE IV 12/22/17 16:29 18 16:31 DC 12/22/17 17:15 0 MLS/HR Vital Signs/I&O Vital Sign - Last 12Hours 12/22/17 16:30 Temp 98.3 Pulse 57 Resp 16 B/P (MAP) 169/77 (107) Pulse Ox 99 O2 Delivery Room Air Capillary Refill : Progress Note : Progress Note Seen and evaluated. IV, labs, UA,, normal saline 500 mL bolus. Blood cultures and lactic acid ordered due to likely findings of urinary tract infection. Monitor patient. Showing significant urinary tract infection. Rocephin 1 g IV ordered. 1743: I discussed the case with Dr. Giordano and she accepts patient for admission, inpatient status. Patients family will bring her meds from home for verification of meds and dosing. Family agrees with plan. Departure Communication (Admissions) Time/Spoke to Admitting Phy: 17:43 Impression Impression: Primary Impression: Urinary tract infection Qualified Codes: N30.01 - Acute cystitis with hematuria Disposition: ADMITTED INPATIENT Condition: Stable Admissions Decision to Admit Reason: Admit from ER (General) Decision to Admit/Date: Dec 22, 2017 Time/Decision to Admit Time: 17:43 Departure-Patient Inst. Referrals: MI DENG DO (PCP/Family) Primary Care Physician MARILEE CLEMONS MD Dec 22, 2017 16:41
[2017-12-22 16:59] LABS: BASOPHILS % (AUTO) 0 % (0-10); EOSINOPHILS # (AUTO) 0.2 10^3/uL (0.0-0.3); EOSINOPHILS % (AUTO) 3 % (0-10); HEMATOCRIT 31 % (35-52); LYMPHOCYTES # (AUTO) 1.5 X 10^3 (1.0-4.0); LYMPHOCYTES % (AUTO) 24 % (12-44); MEAN CORPUSCULAR HEMOGLOBIN 32 PG (25-34); MEAN CORPUSCULAR HGB CONC 32 G/DL (32-36); MEAN CORPUSCULAR VOLUME 98 FL (80-99); MEAN PLATELET VOLUME 10.7 FL (7.4-10.4); MONOCYTES # (AUTO) 0.5 X 10^3 (0.0-1.0); MONOCYTES % (AUTO) 8 % (0-12); NEUTROPHILS # (AUTO) 4.1 X 10^3 (1.8-7.8); NEUTROPHILS % (AUTO) 66 % (42-75); PLATELET COUNT 260 10^3/uL (130-400); RED BLOOD COUNT 3.16 10^6/uL (4.35-5.85); RED CELL DISTRIBUTION WIDTH 14.2 % (10.0-14.5); WHITE BLOOD COUNT 6.2 10^3/uL (4.3-11.0)
[2017-12-22 17:19] LABS: ALBUMIN 3.9 GM/DL (3.2-4.5); BILIRUBIN,TOTAL 0.4 MG/DL (0.1-1.0); CALCIUM 9.3 MG/DL (8.5-10.1); CREATININE SERUM 1.3 MG/DL (0.60-1.30); POTASSIUM 3.5 MMOL/L (3.6-5.0); TOTAL PROTEIN 6.7 GM/DL (6.4-8.2)
[2017-12-22 17:26] LABS: BILIRUBIN,URINE NEGATIVE (NEGATIVE); CLARITY,URINE VERY CLOUDY; COLOR,URINE YELLOW; GLUCOSE, URINE (UA) NEGATIVE (NEGATIVE); KETONES,URINE NEGATIVE (NEGATIVE); LEUKOCYTE ESTERASE ,URINE 3+ (NEGATIVE); NITRITE,URINE NEGATIVE (NEGATIVE); PH,URINE 5 (5-9); PROTEIN,URINE 2+ (NEGATIVE); UROBILINOGEN,URINE NORMAL (NORMAL)
[2017-12-22] MEDS ORDERED: cefTRIAXone INJECTION 1,000 MG in NS (IVPB) 100 ML IV ONE (17:30)
[2017-12-22 17:40] LABS: BACTERIA,URINE LARGE /HPF; RBC,URINE 50-100 /HPF; WBC,URINE TNTC /HPF
[2017-12-22] MEDS ORDERED: ACETAMINOPHEN 325 MG TABLET/CAPLET (TYLENOL) PO PRN (18:45)
[2017-12-22] MEDS: CLOPIDOGREL 75 MG (PLAVIX) TABLET PO SCH (18:46)
[2017-12-22] MEDS: RIVAROXABAN 15 MG TABLET (XARELTO) PO SCH (18:46)
[2017-12-22] MEDS: NS IV 1000 ML 1,000 ML IV SCH (18:47)
[2017-12-22] MEDS ORDERED: cefTRIAXone 1 GM/NS 100 ML IVPB IV SCH ×2 (19:00)
[2017-12-22] MEDS ORDERED: PRIM50TA PO (19:37)
[2017-12-22] MEDS ORDERED: PARO20TA5 PO (19:37)
[2017-12-22] MEDS ORDERED: CLOP75TA28 PO (19:37)
[2017-12-22] MEDS ORDERED: PROP60CA PO (19:37)
[2017-12-22] MEDS ORDERED: FAMO20TA5 PO (19:37)
[2017-12-22 19:59] VITALS: BP 168/68
[2017-12-22 22:02] VITALS: BP 168/86
[2017-12-22] MEDS ORDERED: RT-ALBUTEROL/IPRATROPIUM 3 ML (DUONEB) VIAL INH PRN (22:15)
[2017-12-23] VITALS (7 sets, daily range): BP systolic 145–179; BP diastolic 5–80
[2017-12-23 06:00] LABS: BASOPHILS % (AUTO) 0 % (0-10); EOSINOPHILS # (AUTO) 0.2 10^3/uL (0.0-0.3); EOSINOPHILS % (AUTO) 3 % (0-10); HEMATOCRIT 30 % (35-52); HEMOGLOBIN 9.6 G/DL (11.5-16.0); LYMPHOCYTES # (AUTO) 1.5 X 10^3 (1.0-4.0); LYMPHOCYTES % (AUTO) 26 % (12-44); MEAN CORPUSCULAR HEMOGLOBIN 32 PG (25-34); MEAN CORPUSCULAR HGB CONC 32 G/DL (32-36); MEAN CORPUSCULAR VOLUME 99 FL (80-99); MEAN PLATELET VOLUME 10.8 FL (7.4-10.4); MONOCYTES # (AUTO) 0.5 X 10^3 (0.0-1.0); MONOCYTES % (AUTO) 8 % (0-12); NEUTROPHILS # (AUTO) 3.6 X 10^3 (1.8-7.8); NEUTROPHILS % (AUTO) 62 % (42-75); PLATELET COUNT 220 10^3/uL (130-400); RED BLOOD COUNT 3.04 10^6/uL (4.35-5.85); WHITE BLOOD COUNT 5.8 10^3/uL (4.3-11.0)
[2017-12-23 06:23] LABS: CALCIUM 8.4 MG/DL (8.5-10.1); CREATININE SERUM 1.03 MG/DL (0.60-1.30); POTASSIUM 3.4 MMOL/L (3.6-5.0)
[2017-12-23] MEDS: NS IV 1000 ML 1,000 ML IV SCH ×2 (08:14→21:06)
[2017-12-23] MEDS: CLOPIDOGREL 75 MG (PLAVIX) TABLET PO SCH (09:54)
--- NOTE | 2017-12-23 12:59 | History & Physicial ---
History of Present Illness History of Present Illness Reason for visit/HPI This is an 82 year old female with a known history of CAD and atrial fibrillation and is therefore on 2 anticoagulants who presented to the emergency room with complaint of vaginal bleeding. She stated that she noticed a large clot in her underwear that afternoon and the bleeding persisted so she presented for evaluation. She does admit to her urine feeling warm for 2 days prior to the bleeding. She was found to have an acute UTI and it was decided to admit her for further evaluation and treatment. Date of Admission Dec 22, 2017 at 17:54 Date Seen by Provider: Dec 23, 2017 Time Seen by Provider: 12:51 I consulted on this patient on 12/23/17 12:51 Attending Physician Meri Norton DO Admitting Physician Meri Norton DO Consult Allergies and Home Medications Allergies Coded Allergies: No Known Drug Allergies (Unverified , 10/12/17) Home Medications Alprazolam 0.25 Mg Tablet, 0.125 MG PO HS, (Reported) TAKES 1/2 OF A (0.25 MG) TABLET Amiodarone HCl 200 Mg Tablet, 200 MG PO DAILY, (Reported) Amlodipine Besylate 5 Mg Tablet, 5 MG PO DAILY, (Reported) Atorvastatin Calcium 40 Mg Tablet, 40 MG PO HS, (Reported) Bisacodyl 5 Mg Tablet.dr, 10 MG PO DAILY, (Reported) TAKES 2 (5 MG) TABLETS Clopidogrel Bisulfate 75 Mg Tablet, 75 MG PO DAILY, (Reported) Famotidine 20 Mg Tablet, 20 MG PO BID, (Reported) Furosemide 20 Mg Tablet, 20 MG PO DAILY, (Reported) Furosemide 20 Mg Tablet, 20 MG PO DAILY PRN for SWELLING, (Reported) MAY TAKE AN ADDITIONAL DOSE IF NEEDED FOR SWELLING Losartan Potassium 100 Mg Tablet, 100 MG PO DAILY, (Reported) Magnesium Oxide 250 Mg Tablet, 250 MG PO BID, (Reported) Multivitamins-Min/FA/Ginkgo 1 Each Tablet, 1 TAB PO DAILY, (Reported) Pantoprazole Sodium 40 Mg Tablet.dr, 40 MG PO BID, (Reported) Paroxetine HCl 20 Mg Tablet, 20 MG PO DAILY, (Reported) Potassium Chloride 10 Meq Tablet.er, 10 MEQ PO DAILY, (Reported) Primidone 50 Mg Tablet, 50 MG PO BID, (Reported) Propranolol HCl 60 Mg Cap.sa.24h, 60 MG PO DAILY, (Reported) Rivaroxaban 15 Mg Tablet, 15 MG PO 1700, (Reported) Patient Home Medication List Home Medication List Reviewed: Yes Past Zaswnuv-Qrntux-Iwtwhz Hx Patient Social History Alcohol Use: Denies Use Recreational Drug Use: No Smoking Status: Never a Smoker 2nd Hand Smoke Exposure: No Physical Abuse Screen: No Sexual Abuse: No Recent Foreign Travel: No Contact w/other who traveled: No Recent Hopitalizations: Yes Recent Infectious Disease Expo: No Immunizations Up To Date Tetanus Booster (TDap): Unknown Pediatric: Yes Date of Pneumonia Vaccine: Sep 04, 2013 Date of Influenza Vaccine: Aug 28, 2017 Seasonal Allergies Seasonal Allergies: No Surgeries Yes Cardiac, CABG, Eye Surgery, Hysterectomy, Orthopedic, Tonsillectomy, Vascular Surgery Respiratory Yes Asthma Currently Using CPAP: No Currently Using BIPAP: No Cardiovascular Yes (HEART STENTS X2) Atrial Fibrillation, Chronic Edema/Swelling, Coronary Artery Disease, Heart Murmur, High Cholesterol, Hypertension, Irregular Heartbeat, Peripheral Vascular , Valvular Heart Disease Neurological Yes (TREMOR LEFT ARM) 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 System : No Hx 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 Disorders: No Sexually Transmitted Disease: No HIV/AIDS: No 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, 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 Genitourinary Yes (RENAL ARTERY STENT; SOME INCONTINENCE) UTI-Chronic Gastrointestinal Yes Gastroesophageal Reflux, Chronic Constipation Musculoskeletal Yes Arthritis Endocrine History of Endocrine Disorders: Yes (NON-COMPLIANT WITH MEDICATIONS AND NEVER CHECKS BLOOD GLUCOSE) Endocrine Disorders: Diabetes, Non-Insulin dep HEENT History of HEENT Disorders: Yes (S/P CATARACT SURGERY) HEENT Disorders: Cataract Loss of Vision: Denies Hearing Impairment: Denies Cancer No Psychosocial History of Psychiatric Problem: Yes Behavioral Health Disorders: Anxiety Integumentary History of Skin or Integumenta: No Blood Transfusions History of Blood Disorders: No Adverse Reaction to a Blood Tr: No Reviewed Nursing Assessment Reviewed/Agree w Nursing PMH: Yes Family Medical History Significant Family History: Heart Disease, Cancer, Diabetes, Hypertension Family Hx: Colon cancer 19 FATHER G8 BROTHER Completed stroke DAUGHTER Diabetes mellitus 19 FATHER Hypertension 19 MOTHER Myocardial infarction 19 MOTHER Constitutional: weakness EENTM: No see HPI, No no symptoms reported, No ear discharge, No hearing loss, No ear pain, No blurred vision, No double vision, No eye pain, No tearing, No vision loss, No dental problems, No hoarseness, No mouth pain, No mouth swelling , No epistaxis, No nose congestion, No nose pain, No throat pain, No throat swelling, No other Respiratory: No no symptoms reported, No see HPI, No cough, No dyspnea on exertion, No hemoptysis, No orthopnea, No phlegm, No short of breath, No stridor , No wheezing, No other Cardiovascular: No no symptoms reported, No see HPI, No chest pain, No edema, No Hx of Intervention, No palpitations, No syncope, No vascular heart diseas, No other Gastrointestinal: No RUQ, No LUQ, No RLQ, No LLQ, No no symptoms reported, No see HPI, No abdominal pain, No constipation, No diarrhea, No dysphagia, No hematemesis, No heartburn, No jaundice, No loss of appetite, No melena, No nausea, No vomiting, No other Genitourinary: hematuria Musculoskeletal: No no symptoms reported, No see HPI, No back pain, No gout, No joint pain, No joint swelling, No muscle pain, No muscle stiffness, No muscle cramps, No muscle twitching, No muscle weakness, No neck pain, No other Skin: No no symptoms reported, No see HPI, No change in color, No change in hair/nails, No dryness, No hx of skin cancer, No lesions, No lumps, No pruritus , No rash, No other Psychiatric/Neurological: Anxiety Physical Exam Vital Signs Vital Signs - First Documented 12/22/17 16:30 Temp 98.3 Pulse 57 Resp 16 B/P (MAP) 169/77 (107) Pulse Ox 99 O2 Delivery Room Air Capillary Refill : Less Than 3 Seconds General Appearance: No Apparent Distress HEENT: Normal ENT Inspection Neck: Supple Respiratory: Lungs Clear Cardiovascular: Regular Rate, Rhythm, Systolic Murmur, Gallop/S4 Gastrointestinal: Normal Bowel Sounds, Non Tender, Soft Rectal: Deferred Back: No CVA Tenderness Extremity: Non Tender, No Calf Tenderness, No Pedal Edema Neurologic/Psychiatric: Alert, Oriented x3 Skin: Normal Color Lymphatic: No Adenopathy Comments Laboratory Tests 12/22/17 16:40: White Blood Count 6.2, Red Blood Count 3.16L, Hemoglobin 10.0L, Hematocrit 31L, Mean Corpuscular Volume 98, Mean Corpuscular Hemoglobin 32, Mean Corpuscular Hemoglobin Concent 32, Red Cell Distribution Width 14.2, Platelet Count 260, Mean Platelet Volume 10.7H, Neutrophils (%) (Auto) 66, Lymphocytes (%) (Auto) 24 , Monocytes (%) (Auto) 8, Eosinophils (%) (Auto) 3, Basophils (%) (Auto) 0, Neutrophils # (Auto) 4.1, Lymphocytes # (Auto) 1.5, Monocytes # (Auto) 0.5, Eosinophils # (Auto) 0.2, Basophils # (Auto) 0.0, Urine Color YELLOW, Urine Clarity VERY CLOUDYH, Urine pH 5, Urine Specific [place] 1.020, Urine Protein 2+ H, Urine Glucose (UA) NEGATIVE, Urine Ketones NEGATIVE, Urine Nitrite NEGATIVE, Urine Bilirubin NEGATIVE, Urine Urobilinogen NORMAL, Urine Leukocyte Esterase 3+ H, Urine RBC (Auto) 5+H, Urine RBC 50-100H, Urine WBC TNTCH, Urine Crystals NONE , Urine Bacteria LARGEH, Urine Casts NONE, Urine Mucus NEGATIVE, Urine Culture Indicated YES, Sodium Level 136, Potassium Level 3.5L, Chloride Level 101, Carbon Dioxide Level 25, Anion Gap 10, Blood Urea Nitrogen 16, Creatinine 1.30, Estimat Glomerular Filtration Rate 39, BUN/Creatinine Ratio 12, Glucose Level 178H, Lactic Acid Level 2.00, Calcium Level 9.3, Total Bilirubin 0.4, Aspartate Amino Transf (AST/SGOT) 31, Alanine Aminotransferase (ALT/SGPT) 27, Alkaline Phosphatase 69, C-Reactive Protein High Sensitivity 0.13, Total Protein 6.7, Albumin 3.9 12/23/17 05:25: White Blood Count 5.8, Red Blood Count 3.04L, Hemoglobin 9.6L, Hematocrit 30L, Mean Corpuscular Volume 99, Mean Corpuscular Hemoglobin 32, Mean Corpuscular Hemoglobin Concent 32, Red Cell Distribution Width 14.0, Platelet Count 220, Mean Platelet Volume 10.8H, Neutrophils (%) (Auto) 62, Lymphocytes (%) (Auto) 26 , Monocytes (%) (Auto) 8, Eosinophils (%) (Auto) 3, Basophils (%) (Auto) 0, Neutrophils # (Auto) 3.6, Lymphocytes # (Auto) 1.5, Monocytes # (Auto) 0.5, Eosinophils # (Auto) 0.2, Basophils # (Auto) 0.0, Sodium Level 137, Potassium Level 3.4L, Chloride Level 102, Carbon Dioxide Level 27, Anion Gap 8, Blood Urea Nitrogen 13, Creatinine 1.03, Estimat Glomerular Filtration Rate 51, BUN/ Creatinine Ratio 13, Glucose Level 157H, Calcium Level 8.4L Microbiology 12/22/17 Urine Culture - Preliminary, Resulted Probable Klebsiella/Enterobact Assessment/Plan Assessment and Plan 1. Acute UTI with Gross Hematuria--admit and start IV rocephin and gentle IVF rehydration and monitor urine 2. Hypertension--resume home meds 3. Acute on Chronic Anemia--monitor H/H 4. Diabetes mellitus--start accuchecks with SSI 5. Atrial fibrillation--rate controlled--resume home meds including xarelto and monitor for hematuria and any other bleeding 6. CAD--stable, resume plavix and monitor for hematuria and any other bleeding Problems: Admission Diagnosis Admission Status: Inpatient Order (span 2 midnights) Reason for Inpatient Admission: The patient will require at least 48-72 hours of IVFs and IV antibiotics and monitoring urine for hematuria as her blood thinners are restarted Clinical Quality Measures DVT/VTE Risk/Contraindication: Risk Factor Score Per Nursin RFS Level Per Nursing on Admit: 3=High MERI NORTON DO Dec 23, 2017 12:59
[2017-12-23] MEDS ORDERED: KCL 8 MEQ (MICRO K) TABLET PO NR (13:19)
--- NOTE | 2017-12-23 14:29 | Consultation-Cardiology ---
HPI-Cardiology Cardiology Consultation: Date of Consultation 12/23/17 Date of Admission Attending Physician Meri Norton DO Admitting Physician Meri Norton DO Consulting Physician Jose Juan BLACK MD HPI: Time Seen by Provider: 12:30 Chief Complaint: UTI This is a 82-year-old lady who is a patient of Dr. Craig. She has history of CAD, CABG, PCI, hypertension, hyperlipidemia, paroxysmal atrial fibrillation, diabetes and renal artery stenosis. She presents with complain of urinary bleeding and possible UTI. She denies any cardiac symptoms and specifically denies any chest pain or shortness of breath. Review of Systems-Cardiology Review of Systems Constitutional: No As described under HPI, No no symptoms reported, No chills, No fever, No lightheadedness, No malaise, No tiredness, No weight loss, No weight gain, No other Eyes: No As described under HPI, No no symptoms reported, No blindness, No blurred vision, No contact lenses, No drainage, No decreased acuity, No foreign body sensation, No glasses, No inflammation, No pain, No photophobia, No previous injury, No shadows, No tunnel vision, No other, No vision change Ears/Nose/Throat: No As described under HPI, No no symptoms reported, No chronic hearing loss, No epistaxis, No ear discharge, No ear pain, No loose teeth, No mouth pain, No mouth swelling, No nasal drainage, No nose pain, No recent hearing loss, No throat pain, No throat swelling, No ulcerations, No other Respiratory: No no symptoms reported, No As described under HPI, No cough, No orthopnea, No shortness of breath, No SOB with excertion, No SOB at rest, No stridor, No wheezing, No other Cardiovascular: No no symptoms reported, No As described under HPI, No chest pain, No edema, No irregular heart rate, No lightheadedness, No palpitations, No syncope, No other Gastrointestinal: No no symptoms reported, No As described under HPI, No abdomen distended, No abdominal pain, No blood streaked bowels, No constipation , No diarrhea, No difficulty swallowing, No nausea, No poor appetite, No poor fluid intake, No rectal bleeding, No vomiting, No other, No nausea/vomiting/ diarrhea, No stool coloration changes Genitourinary: hematuria : No Musculoskeletal: No no symptoms reported, No As describe under HPI, No back pain, No gout, No joint pain, No joint swelling, No muscle pain, No muscle stiffness, No neck pain, No other Skin: No no symptoms reported, No As described under HPI, No change in color, No change in hair/nails, No dryness, No lesions, No lumps, No rash, No other, No skin related problems, No ulcerations, No rash on exposed areas, No ulcerations on exposed areas Psychiatric/Neurological: No no symptoms reported, No As described under HPI, No anxiety, No depression, No emotional problems, No headache, No numbness, No pre-existing deficit, No seizure, No tingling, No tremors, No weakness, No other , No focal weakness, No syncope Hematologic: No no symptoms reported, No As described under HPI, No anemia, No blood clots, No easy bleeding, No easy bruising, No swollen glands, No other, No bleeding abnormalities All Other Systems Reviewed Negative Unless Noted: Yes [id number] Hx Patient Social History Alcohol Use: Denies Use Recreational Drug Use: No Smoking Status: Never a Smoker 2nd Hand Smoke Exposure: No Recent Foreign Travel: No Recent Infectious Disease Expo: No Hospitalization with Isolation: Denies Physical Abuse Screen: No Sexual Abuse: No Immunizations Up To Date Tetanus Booster (TDap): Unknown Date of Pneumonia Vaccine: Sep 04, 2013 Date of Influenza Vaccine: Aug 28, 2017 Past Medical History PMH As described under Assessment. Family Medical History Family Medical History: She reports her mother had CAD and HTN. Family History: Colon cancer 19 FATHER G8 BROTHER Completed stroke DAUGHTER Diabetes mellitus 19 FATHER Hypertension 19 MOTHER Myocardial infarction 19 MOTHER Allergies and Home Medications Allergies Coded Allergies: No Known Drug Allergies (Unverified , 10/12/17) Home Medications Alprazolam 0.25 Mg Tablet, 0.125 MG PO HS, (Reported) TAKES 1/2 OF A (0.25 MG) TABLET Amiodarone HCl 200 Mg Tablet, 200 MG PO DAILY, (Reported) Amlodipine Besylate 5 Mg Tablet, 5 MG PO DAILY, (Reported) Atorvastatin Calcium 40 Mg Tablet, 40 MG PO HS, (Reported) Bisacodyl 5 Mg Tablet.dr, 10 MG PO DAILY, (Reported) TAKES 2 (5 MG) TABLETS Clopidogrel Bisulfate 75 Mg Tablet, 75 MG PO DAILY, (Reported) Famotidine 20 Mg Tablet, 20 MG PO BID, (Reported) Furosemide 20 Mg Tablet, 20 MG PO DAILY, (Reported) Furosemide 20 Mg Tablet, 20 MG PO DAILY PRN for SWELLING, (Reported) MAY TAKE AN ADDITIONAL DOSE IF NEEDED FOR SWELLING Losartan Potassium 100 Mg Tablet, 100 MG PO DAILY, (Reported) Magnesium Oxide 250 Mg Tablet, 250 MG PO BID, (Reported) Multivitamins-Min/FA/Ginkgo 1 Each Tablet, 1 TAB PO DAILY, (Reported) Pantoprazole Sodium 40 Mg Tablet.dr, 40 MG PO BID, (Reported) Paroxetine HCl 20 Mg Tablet, 20 MG PO DAILY, (Reported) Potassium Chloride 10 Meq Tablet.er, 10 MEQ PO DAILY, (Reported) Primidone 50 Mg Tablet, 50 MG PO BID, (Reported) Propranolol HCl 60 Mg Cap.sa.24h, 60 MG PO DAILY, (Reported) Rivaroxaban 15 Mg Tablet, 15 MG PO 1700, (Reported) Patient Home Medication List Home Medication List Reviewed: Yes Physical Exam-Cardiology Physical Exam Vital Signs/I&O Vital Sign - Last 12Hours 12/23/17 12/23/17 12/23/17 04:00 08:00 12:00 Temp 98.1 98.1 97.0 Pulse 54 53 53 Resp 14 16 18 B/P (MAP) 150/68 (95) 148/65 (92) 164/73 (103) Pulse Ox 97 96 99 O2 Delivery Room Air Room Air Room Air Intake and Output 12/23/17 00:00 Intake Total 940 ml Output Total 200 ml Balance 740 ml Capillary Refill : Less Than 3 Seconds Constitutional: No appears stated age, No AAO x 3, No apparent distress, No PERRL, No well-developed, No well-nourished, No other HEENT: No PERRL, No normal ENT inspection, No TMs normal, No pharynx normal, No scleral icterus (R), No scleral icterus (L), No pale conjunctivae (R), No pale conjunctivae (L), No photophobia, No TM abnormal (R), No TM abnormal (L), No pharyngeal erythema, No tonsillar exudate, No other, No discharge, No EOMI, No hearing is well preserved, No hard of hearing, No oral hygience is good, No ulceration, No xanthelasmas are seen Neck: No non-tender, No full range of motion, No supple, No normal inspection, No carotid bruit, No limited range of motion, No lymphadenopathy (R), No lymphadenopathy (L), No tender lateral, No tender midline, No thyromegaly, No other, No carotid pulses are 2 + bilaterally, No with good upstrokes Respiratory: chest is bilaterally symmetric, lungs clear to auscultation Cardiovascular: regular rate-rhythm, S1 and S2 Gastrointestinal: No tender, No soft, No round, No distended, No pulsatile mass , No organomegaly, No guarding, No rebound, No tenderness, No hernia, No mass, No audible bowel sounds, No abnormal bowel sounds, No abdominal bruits, No spleenomegaly, No other Rectal: deferred Extremities: No normal range of motion, No non-tender, No normal inspection, No pedal edema, No calf tenderness, No normal capillary refill, No pelvis stable , No calf tenderness, No inflammation, No pedal edema, No slow capillary refill , No swelling, No other, No abrasion, No clubbing, No cyanosis, No ecchymosis, No laceration, No no lower extremity edema bilateral, No significant edema, No tenderness, No wound Neurologic/Psychiatric: No odd job worker II-XII nml as tested, No no motor/sensory deficits, No alert, No normal mood/affect, No oriented x 3, No abnormal cerebellar tests, No abnormal odd job worker II-XII, No abnormal gait, No aphasia, No EOM palsy, No facial droop, No motor weakness, No sensory deficit, No depressed affect, No disoriented x 3, No other, No grossly intact, No power is 5/5 both on sides Skin: No normal color, No warm/dry, No cyanosis, No cool, No diaphoresis, No damp, No ecchymosis, No jaundice, No mottled, No pallor, No rash, No tattoos/ piercings, No ulcerations, No rash on exposed areas, No ulcerations on exposed areas, No other Data Review Labs Laboratory Tests 12/22/17 16:40: White Blood Count 6.2, Red Blood Count 3.16L, Hemoglobin 10.0L, Hematocrit 31L, Mean Corpuscular Volume 98, Mean Corpuscular Hemoglobin 32, Mean Corpuscular Hemoglobin Concent 32, Red Cell Distribution Width 14.2, Platelet Count 260, Mean Platelet Volume 10.7H, Neutrophils (%) (Auto) 66, Lymphocytes (%) (Auto) 24 , Monocytes (%) (Auto) 8, Eosinophils (%) (Auto) 3, Basophils (%) (Auto) 0, Neutrophils # (Auto) 4.1, Lymphocytes # (Auto) 1.5, Monocytes # (Auto) 0.5, Eosinophils # (Auto) 0.2, Basophils # (Auto) 0.0, Urine Color YELLOW, Urine Clarity VERY CLOUDYH, Urine pH 5, Urine Specific [place] 1.020, Urine Protein 2+ H, Urine Glucose (UA) NEGATIVE, Urine Ketones NEGATIVE, Urine Nitrite NEGATIVE, Urine Bilirubin NEGATIVE, Urine Urobilinogen NORMAL, Urine Leukocyte Esterase 3+ H, Urine RBC (Auto) 5+H, Urine RBC 50-100H, Urine WBC TNTCH, Urine Crystals NONE , Urine Bacteria LARGEH, Urine Casts NONE, Urine Mucus NEGATIVE, Urine Culture Indicated YES, Sodium Level 136, Potassium Level 3.5L, Chloride Level 101, Carbon Dioxide Level 25, Anion Gap 10, Blood Urea Nitrogen 16, Creatinine 1.30, Estimat Glomerular Filtration Rate 39, BUN/Creatinine Ratio 12, Glucose Level 178H, Lactic Acid Level 2.00, Calcium Level 9.3, Total Bilirubin 0.4, Aspartate Amino Transf (AST/SGOT) 31, Alanine Aminotransferase (ALT/SGPT) 27, Alkaline Phosphatase 69, C-Reactive Protein High Sensitivity 0.13, Total Protein 6.7, Albumin 3.9 12/23/17 05:25: White Blood Count 5.8, Red Blood Count 3.04L, Hemoglobin 9.6L, Hematocrit 30L, Mean Corpuscular Volume 99, Mean Corpuscular Hemoglobin 32, Mean Corpuscular Hemoglobin Concent 32, Red Cell Distribution Width 14.0, Platelet Count 220, Mean Platelet Volume 10.8H, Neutrophils (%) (Auto) 62, Lymphocytes (%) (Auto) 26 , Monocytes (%) (Auto) 8, Eosinophils (%) (Auto) 3, Basophils (%) (Auto) 0, Neutrophils # (Auto) 3.6, Lymphocytes # (Auto) 1.5, Monocytes # (Auto) 0.5, Eosinophils # (Auto) 0.2, Basophils # (Auto) 0.0, Sodium Level 137, Potassium Level 3.4L, Chloride Level 102, Carbon Dioxide Level 27, Anion Gap 8, Blood Urea Nitrogen 13, Creatinine 1.03, Estimat Glomerular Filtration Rate 51, BUN/ Creatinine Ratio 13, Glucose Level 157H, Calcium Level 8.4L Microbiology 12/22/17 Urine Culture - Preliminary, Resulted Probable Klebsiella/Enterobact A/P-Cardiology Assessment/Admission Diagnosis Hematuria, UTI, CAD, status post CABG and PCI, Paroxysmal atrial fibrillation, Renal artery stenosis, Diabetes, Hypertension, Hyperlipidemia. Plan Deferred treatment of UTI and hematuria to Dr. Norton. On IV antibiotics. If no further bleeding, will recommend to continue Plavix and Xarelto. Patient will follow Dr. Craig for cardiology as an outpatient. Coronary artery disease, history of CABG 4 done in November 2014 using KOHLI to the LAD, reverse vein graft to the OM, PDA, reverse vein graft to the diagonal artery. Underwent cardiac catheterization on August 30, 2017 revealing occluded 3 vein graft known to be the RCA, obtuse marginal, diagonal artery. Patent KOHLI to LAD. 70 percent stenosis in the mid circumflex artery. 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 Occluded vein graft to the RCA with severe disease at the RCA with complex intervention using 2 stents, Xience Alpine 2.75 x 28 to the mid RCA and 3.0 x 12mm to the ostrial RCA with excellent results. Distal RCA has 60 percent stenosis at the bifurcation point was small vessel disease beyond that, will be treated medically. Repeat cardiac catheterization was done on November 30, 2017 showing patent stent in the proximal and midright coronary artery with moderate disease distally, the lesion of the circumflex artery although angiographically appeared significant, FFR was 0.96 at baseline and 0.92 after Adenosine. The vein graft to the right coronary artery, diagonal artery and obtuse marginal arteries are known to be occluded. On Plavix. Aortic stenosis-most recent 2-D echocardiogram done April 2017 revealed moderate to severe aortic stenosis with calculated valve area of 1.05. Underwent JAVID August 2017 revealing aortic sclerosis without any significant aortic stenosis. We will continue to monitor. Paroxysmal atrial fibrillation-had JAVID with failed cardioversion August 2017. Cardioverted on amiodarone. Currently maintained on amiodarone 200 mg daily, continue to monitor. [id number] score of 6, yearly risk of stroke without oral anticoagulation is 9.8 percent. Patient is maintained on Xarelto at this time. Severe mitral regurgitation, pulmonary hypertension with PA pressure 55-60 mmHg , continue to monitor. Hypertension, good blood pressure control. Renal artery stenosis, has severe stenosis at the ostial right renal artery had , had complex intervention with multiple balloon angioplasty high pressure inflation then deployment of Herculink time 15 stents with excellent results. The gradient has improved across the lesion significantly. Hyperlipidemia, maintained on Lipitor 40 mg daily, continue to monitor lipids Diabetes mellitus. Followed and managed by primary care physician Nonobstructive carotid artery stenosis-most recent carotid duplex done July 2017, continue to monitor. Thank you for your consultation. Please call me if you have any questions. Josh Black MD, FACP, FACC, FSCAI, FHRS, CCDS Interventional Cardiology Cardiac Electrophysiology Vascular Medicine and Endovascular Interventions Clinical Quality Measures DVT/VTE Risk/Contraindication: Risk Factor Score Per Nursin RFS Level Per Nursing on Admit: 3=High Jose Juan BLACK MD Dec 23, 2017 14:29
[2017-12-23] MEDS: AMIODARONE 200 MG (CORDARONE) TAB PO SCH (14:47)
[2017-12-23] MEDS: amLODIPine 5 MG (NORVASC) TAB PO SCH (14:48)
[2017-12-23] MEDS: LOSARTAN 100 MG (COZAAR) TABLET PO SCH (14:49)
[2017-12-23] MEDS: FUROSEMIDE 20 MG (LASIX) TAB PO SCH (14:50)
[2017-12-23] MEDS: PARoxetine 20 MG (PAXIL) TAB PO SCH (14:50)
[2017-12-23] MEDS: BISACODYL 5 MG (DULCOLAX) TABLET PO SCH (14:51)
[2017-12-23] MEDS: inSUlin (REGULAR) HUMAN 1 UNIT/0.01 ML (CHARGE PER UNIT) SC SCH ×2 (16:27→21:04)
[2017-12-23] MEDS ORDERED: RIVAROXABAN 15 MG TABLET (XARELTO) PO SCH (17:00)
[2017-12-23] MEDS ORDERED: cefTRIAXone 1 GM/NS 100 ML IVPB IV SCH ×2 (17:00)
[2017-12-23] MEDS: RIVAROXABAN 15 MG TABLET (XARELTO) PO SCH (17:51)
[2017-12-23] MEDS ORDERED: FAMOTIDINE 20 MG (PEPCID) TABLET PO SCH (21:00)
[2017-12-23] MEDS ORDERED: ALPRAZolam 0.25 MG (XANAX) TAB PO SCH (21:00)
[2017-12-23] MEDS ORDERED: ATORVASTATIN 40 MG (LIPITOR) TABLET PO SCH (21:00)
[2017-12-23] MEDS: PRIMIDONE 50 MG TAB (MYSOLINE) PO SCH (21:05)
[2017-12-23] MEDS: PANTOPRAZOLE 40 MG (PROTONIX) TAB PO SCH (21:05)
[2017-12-23] MEDS: MAGNESIUM OXIDE (MAG-OX)400 MG TAB PO SCH (21:05)
[2017-12-24] VITALS: BP 157/69
[2017-12-24 04:00] VITALS: BP 159/70
[2017-12-24] MEDS: inSUlin (REGULAR) HUMAN 1 UNIT/0.01 ML (CHARGE PER UNIT) SC SCH ×2 (05:48→12:00)
[2017-12-24 06:41] LABS: BASOPHILS % (AUTO) 0 % (0-10); EOSINOPHILS # (AUTO) 0.3 10^3/uL (0.0-0.3); EOSINOPHILS % (AUTO) 4 % (0-10); HEMATOCRIT 30 % (35-52); HEMOGLOBIN 9.8 G/DL (11.5-16.0); LYMPHOCYTES # (AUTO) 1.7 X 10^3 (1.0-4.0); LYMPHOCYTES % (AUTO) 22 % (12-44); MEAN CORPUSCULAR HEMOGLOBIN 31 PG (25-34); MEAN CORPUSCULAR HGB CONC 33 G/DL (32-36); MEAN CORPUSCULAR VOLUME 96 FL (80-99); MEAN PLATELET VOLUME 10.9 FL (7.4-10.4); MONOCYTES # (AUTO) 0.6 X 10^3 (0.0-1.0); MONOCYTES % (AUTO) 8 % (0-12); NEUTROPHILS % (AUTO) 67 % (42-75); PLATELET COUNT 214 10^3/uL (130-400); RED BLOOD COUNT 3.12 10^6/uL (4.35-5.85); WHITE BLOOD COUNT 7.6 10^3/uL (4.3-11.0)
[2017-12-24] MEDS ORDERED: MULTIVIT W/MINERALS TAB (THERAGRAN M) PO SCH (07:00)
[2017-12-24 07:09] LABS: BUN/CREATININE RATIO 12; CALCIUM 8.5 MG/DL (8.5-10.1); CARBON DIOXIDE 27 MMOL/L (21-32); CHLORIDE 103 MMOL/L (98-107); CREATININE SERUM 0.84 MG/DL (0.60-1.30); GFR ESTIMATED > 60; GLUCOSE 128 MG/DL (70-105); MAGNESIUM 1.7 MG/DL (1.8-2.4); SODIUM 138 MMOL/L (135-145)
[2017-12-24 08:00] VITALS: BP 177/75
[2017-12-24] MEDS ORDERED: CLOPIDOGREL 75 MG (PLAVIX) TABLET PO SCH (09:00)
[2017-12-24] MEDS ORDERED: NON-FORMULARY MEDICATION 1 EA EA (Propranolol HCl (Propranolol HCl ER) 60 MG) PO SCH (09:00)
[2017-12-24] MEDS ORDERED: KCL 10 MEQ TAB (MICRO K) PO SCH (09:00)
[2017-12-24] MEDS: LOSARTAN 100 MG (COZAAR) TABLET PO SCH (09:00)
[2017-12-24] MEDS: PARoxetine 20 MG (PAXIL) TAB PO SCH (09:01)
[2017-12-24] MEDS: FUROSEMIDE 20 MG (LASIX) TAB PO SCH (09:01)
[2017-12-24] MEDS: PRIMIDONE 50 MG TAB (MYSOLINE) PO SCH (09:01)
[2017-12-24] MEDS: amLODIPine 5 MG (NORVASC) TAB PO SCH (09:01)
[2017-12-24] MEDS: BISACODYL 5 MG (DULCOLAX) TABLET PO SCH (09:01)
[2017-12-24] MEDS: CLOPIDOGREL 75 MG (PLAVIX) TABLET PO SCH (09:01)
[2017-12-24] MEDS: AMIODARONE 200 MG (CORDARONE) TAB PO SCH (09:01)
[2017-12-24] MEDS: MAGNESIUM OXIDE (MAG-OX)400 MG TAB PO SCH (09:01)
[2017-12-24] MEDS: PANTOPRAZOLE 40 MG (PROTONIX) TAB PO SCH (09:01)
[2017-12-24] MEDS: NS IV 1000 ML 1,000 ML IV SCH (09:02)
[2017-12-24 12:00] VITALS: BP 146/58
[2017-12-24] MEDS ORDERED: KCL 8 MEQ (MICRO K) TABLET PO NR (12:30)
[2017-12-24] MEDS ORDERED: POTA10TA10 PO (12:30)
[2017-12-24] MEDS ORDERED: SULF1TAB35 PO (12:30)
--- NOTE | 2017-12-24 12:31 | Discharge Inst-Simple/Standard ---
Discharge Inst-Standard Discharge Medications New, Converted or Re-Newed RX: Transmitted to Pharmacy Patient Instructions/Follow Up Plan of Care/Instructions/FU: Fwup with me in 1 week Activity as Tolerated: Yes Discharge Diet: ADA Diet, Cardiac Diet MI DENG DO Dec 24, 2017 12:31
--- NOTE | 2017-12-24 16:30 | Cardiology Progress Note ---
Cardiology SOAP Progress Note Subjective: No cardiac complaints. Objective: I&O/Vital Signs Vital Sign - Last 12Hours 12/24/17 12/24/17 12/24/17 12/24/17 08:00 10:00 12:00 14:20 Temp 97.7 98.1 Pulse 54 57 Resp 16 18 B/P (MAP) 177/75 (109) 146/58 (87) Pulse Ox 98 97 97 O2 Delivery Room Air Room Air Room Air Intake and Output 12/24/17 00:00 Intake Total 1110 ml Balance 1110 ml Weight (Pounds): 138 Weight (Ounces): 8.0 Weight (Calculated Kilograms): [id number] Constitutional: No appears stated age, No AAO x 3, No apparent distress, No PERRL, No well-developed, No well-nourished, No other Respiratory: chest is bilaterally symmetric, lungs clear to auscultation Cardiovascular: regular rate-rhythm, S1 and S2 Gastrointestional: No tender, No soft, No round, No distended, No pulsatile mass, No organomegaly, No guarding, No rebound, No tenderness, No hernia, No mass, No audible bowel sounds, No abnormal bowel sounds, No abdominal bruits, No spleenomegaly, No other Extremities: No normal range of motion, No non-tender, No normal inspection, No pedal edema, No calf tenderness, No normal capillary refill, No pelvis stable , No calf tenderness, No inflammation, No pedal edema, No slow capillary refill , No swelling, No other, No abrasion, No clubbing, No cyanosis, No ecchymosis, No laceration, No no lower extremity edema bilateral, No significant edema, No tenderness, No wound Neurologic/Psychiatric: No supervisor assembly and packing II-XII nml as tested, No no motor/sensory deficits, No alert, No normal mood/affect, No oriented x 3, No abnormal cerebellar tests, No abnormal supervisor assembly and packing II-XII, No abnormal gait, No aphasia, No EOM palsy, No facial droop, No motor weakness, No sensory deficit, No depressed affect, No disoriented x 3, No other, No grossly intact, No power is 5/5 both on sides Skin: No normal color, No warm/dry, No cyanosis, No cool, No diaphoresis, No damp, No ecchymosis, No jaundice, No mottled, No pallor, No rash, No tattoos/ piercings, No ulcerations, No rash on exposed areas, No ulcerations on exposed areas, No other Results/Procedures: Labs Laboratory Tests 12/23/17 20:40: Glucometer 153H 12/24/17 05:32: Glucometer 129H 12/24/17 05:45: White Blood Count 7.6, Red Blood Count 3.12L, Hemoglobin 9.8L, Hematocrit 30L, Mean Corpuscular Volume 96, Mean Corpuscular Hemoglobin 31, Mean Corpuscular Hemoglobin Concent 33, Red Cell Distribution Width 14.0, Platelet Count 214, Mean Platelet Volume 10.9H, Neutrophils (%) (Auto) 67, Lymphocytes (%) (Auto) 22 , Monocytes (%) (Auto) 8, Eosinophils (%) (Auto) 4, Basophils (%) (Auto) 0, Neutrophils # (Auto) 5.0, Lymphocytes # (Auto) 1.7, Monocytes # (Auto) 0.6, Eosinophils # (Auto) 0.3, Basophils # (Auto) 0.0, Sodium Level 138, Potassium Level 3.0L, Chloride Level 103, Carbon Dioxide Level 27, Anion Gap 8, Blood Urea Nitrogen 10, Creatinine 0.84, Estimat Glomerular Filtration Rate > 60, BUN/ Creatinine Ratio 12, Glucose Level 128H, Calcium Level 8.5, Magnesium Level 1.7L 12/24/17 10:54: Glucometer 204H Microbiology 12/22/17 Blood Culture - Preliminary, Resulted No growth 12/22/17 Urine Culture - Final, Complete Enterobacter cloacae Nonenterococcus (Chains Cocci) A/P: Assessment/Dx: Hematuria, UTI, CAD, status post CABG and PCI, Paroxysmal atrial fibrillation, Renal artery stenosis, Diabetes, Hypertension, Hyperlipidemia. Plan: Deferred treatment of UTI and hematuria to Dr. Norton. On IV antibiotics. If no further bleeding, will recommend to continue Plavix and Xarelto. Patient will follow Dr. Craig for cardiology as an outpatient. Coronary artery disease, history of CABG 4 done in November 2014 using KOHLI to the LAD, reverse vein graft to the OM, PDA, reverse vein graft to the diagonal artery. Underwent cardiac catheterization on August 30, 2017 revealing occluded 3 vein graft known to be the RCA, obtuse marginal, diagonal artery. Patent KOHLI to LAD. 70 percent stenosis in the mid circumflex artery. 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 Occluded vein graft to the RCA with severe disease at the RCA with complex intervention using 2 stents, Xience Alpine 2.75 x 28 to the mid RCA and 3.0 x 12mm to the ostrial RCA with excellent results. Distal RCA has 60 percent stenosis at the bifurcation point was small vessel disease beyond that, will be treated medically. Repeat cardiac catheterization was done on November 30, 2017 showing patent stent in the proximal and midright coronary artery with moderate disease distally, the lesion of the circumflex artery although angiographically appeared significant, FFR was 0.96 at baseline and 0.92 after Adenosine. The vein graft to the right coronary artery, diagonal artery and obtuse marginal arteries are known to be occluded. On Plavix. Aortic stenosis-most recent 2-D echocardiogram done April 2017 revealed moderate to severe aortic stenosis with calculated valve area of 1.05. Underwent JAVID August 2017 revealing aortic sclerosis without any significant aortic stenosis. We will continue to monitor. Paroxysmal atrial fibrillation-had JAVID with failed cardioversion August 2017. Cardioverted on amiodarone. Currently maintained on amiodarone 200 mg daily, continue to monitor. [id number] score of 6, yearly risk of stroke without oral anticoagulation is 9.8 percent. Patient is maintained on Xarelto at this time. Severe mitral regurgitation, pulmonary hypertension with PA pressure 55-60 mmHg , continue to monitor. Hypertension, good blood pressure control. Renal artery stenosis, has severe stenosis at the ostial right renal artery had , had complex intervention with multiple balloon angioplasty high pressure inflation then deployment of Herculink time 15 stents with excellent results. The gradient has improved across the lesion significantly. Hyperlipidemia, maintained on Lipitor 40 mg daily, continue to monitor lipids Diabetes mellitus. Followed and managed by primary care physician Nonobstructive carotid artery stenosis-most recent carotid duplex done July 2017, continue to monitor. Thank you for your consultation. Please call me if you have any questions. Josh Black MD, FACP, FACC, FSCAI, FHRS, CCDS Interventional Cardiology Cardiac Electrophysiology Vascular Medicine and Endovascular Interventions Focused Exam Evaluation Lactate Level Laboratory Tests 12/22/17 16:40: Lactic Acid Level 2.00 Jose Juan BLACK MD Dec 24, 2017 16:30
--- NOTE | 2017-12-25 15:00 | Physician Query-Final Dx ---
ANABEL FOSTER 12/25/17 1500: Final Diagnosis Give Final Diagnosis Please give Final Diagnosis MI DENG DO 12/25/17 1538: Final Diagnosis Give Final Diagnosis See discharge summary ANABEL FOSTER Dec 25, 2017 15:00 MI DENG DO Dec 25, 2017 15:38
--- NOTE | 2017-12-25 15:46 | Discharge Summary ---
Diagnosis/Chief Complaint Date of Admission Dec 22, 2017 at 5:54 pm Date of Discharge Dec 24, 2017 at 2:20 pm Discharge Date: Dec 24, 2017 Discharge Diagnosis 1. Acute UTI with Enterobacter cloacae with Gross Hematuria--improved 2. Hypertension--stable 3. Acute on Chronic Anemia--H/H stable 4. Diabetes mellitus--stable 5. Atrial fibrillation--rate controlled--back on anticoagulants 6. CAD--stable, back on plavix Reason Hospital Visit This is an 82 year old female with a known history of CAD and atrial fibrillation and is therefore on 2 anticoagulants who presented to the emergency room with complaint of vaginal bleeding. She stated that she noticed a large clot in her underwear that afternoon and the bleeding persisted so she presented for evaluation. She does admit to her urine feeling warm for 2 days prior to the bleeding. She was found to have an acute UTI and it was decided to admit her for further evaluation and treatment. Discharge Summary Hospital Course Hospital Course This is an 82 year old female with a known history of CAD and atrial fibrillation and is therefore on 2 anticoagulants who presented to the emergency room with complaint of vaginal bleeding. She stated that she noticed a large clot in her underwear that afternoon and the bleeding persisted so she presented for evaluation. She does admit to her urine feeling warm for 2 days prior to the bleeding. She was found to have an acute UTI and it was decided to admit her for further evaluation and treatment. She was admitted to the medical floor and given IVFs and IV rocephin. Her anticoagulants were restarted and he urine was monitored for gross hematuria. Following admission, she had no further gross hematuria. He hemoglobin was also monitored and her H/ H was stable on discharge. She remained afebrile and had no further burning with urination after the start of her antibiotics. Her urine culture grew out enterobacter cloacae and it was sensitive to the rocephin. It was decided she could be discharged home on oral antibiotics and fwup in my office in 2weeks. Labs Laboratory Tests 12/22/17 16:40: Red Blood Count 3.16L, Hemoglobin 10.0L, Hematocrit 31L, Mean Platelet Volume 10.7H, Urine Clarity VERY CLOUDYH, Urine Protein 2+H, Urine Leukocyte Esterase 3 +H, Urine RBC (Auto) 5+H, Urine RBC 50-100H, Urine WBC TNTCH, Urine Bacteria LARGEH, Potassium Level 3.5L, Glucose Level 178H 12/23/17 05:25: Red Blood Count 3.04L, Hemoglobin 9.6L, Hematocrit 30L, Mean Platelet Volume 10.8H, Potassium Level 3.4L, Glucose Level 157H, Calcium Level 8.4L 12/23/17 15:48: Glucometer 162H 12/23/17 20:40: Glucometer 153H 12/24/17 05:32: Glucometer 129H 12/24/17 05:45: Red Blood Count 3.12L, Hemoglobin 9.8L, Hematocrit 30L, Mean Platelet Volume 10.9H, Potassium Level 3.0L, Glucose Level 128H, Magnesium Level 1.7L 12/24/17 10:54: Glucometer 204H Procedures None. Discharge Physical Examination Allergies: Coded Allergies: No Known Drug Allergies (Unverified , 10/12/17) Vitals & I&Os Vital Signs Date Time Temp Pulse Resp B/P (MAP) Pulse Ox O2 Delivery O2 Flow Rate FiO2 12/24/17 14:20 12/24/17 12:00 98.1 57 18 97 Room Air General Appearance: Alert, Oriented X3, Cooperative, No Acute Distress Respiratory: Clear to Auscultation Cardiovascular: Regular Rate Abdominal: Normal Bowel Sounds, Soft, No Tenderness Extremities: No Clubbing, No Cyanosis, No Edema Psych/Mental Status: Mental Status NL, Mood NL Discharge Home Medications Reviewed and agree with Discharge Medication list on patient's Discharge Instruction sheet Instructions to Patient/Family Please see electronic discharge instructions given to patient. Clinical Quality Measures DVT/VTE Risk/Contraindication: Risk Factor Score Per Nursin RFS Level Per Nursing on Admit: 3=High MI DENG DO Dec 25, 2017 3:46 pm
== END 2017-12-24 14:20 | disposition home or self-care (01) | DRG 690 ==
LOC: EDUNIT# 15:35 → ER 15:37 → 4TH 17:54
PROVIDERS: ADMIT Family Medicine; ATTEND Family Medicine
DX: N39.0 Urinary tract infection, site not specified (principal); R31.0 Gross hematuria; I25.10 Atherosclerotic heart disease of native coronary artery without angina pectoris; I48.0 Paroxysmal atrial fibrillation; I10 Essential (primary) hypertension; D64.9 Anemia, unspecified; E11.51 Type 2 diabetes mellitus with diabetic peripheral angiopathy without gangrene; K21.9 Gastro-esophageal reflux disease without esophagitis; R60.9 Edema, unspecified; R25.1 Tremor, unspecified; E78.00 Pure hypercholesterolemia, unspecified; E78.5 Hyperlipidemia, unspecified; I70.1 Atherosclerosis of renal artery; R01.1 Cardiac murmur, unspecified; K59.09 Other constipation; M19.91 Primary osteoarthritis, unspecified site; F41.9 Anxiety disorder, unspecified; I08.3 Combined rheumatic disorders of mitral, aortic and tricuspid valves; Z95.1 Presence of aortocoronary bypass graft; Z95.5 Presence of coronary angioplasty implant and graft; Z95.828 Presence of other vascular implants and grafts; Z91.19 Patient's noncompliance with other medical treatment and regimen; Z79.01 Long term (current) use of anticoagulants
CPT/HCPCS: 36415; 51701; 80048; 80053; 81000; 82962; 83605; 83735; 85025; 86141; 87040; 87077; 87088; 87186; 94760; 96365

== ENCOUNTER 2018-01-12 20:23 | Emergency (ER) | payer MEDICARE ==
[~2018-01-12] VITALS: Ht 167.6 cm; Wt 62.6 kg
[~2018-01-12 20:23] MED LIST changes: +FAMO20TA5 PO; +PRIM50TA PO; +PROP60CA PO; +SULF1TAB35 PO
[2018-01-12] MEDS ORDERED: NS IV 500 ML 500 ML IV ONE (20:31)
--- NOTE | 2018-01-12 20:37 | ED GU-Female ---
General Stated Complaint: BLOOD IN URINE Source: patient Exam Limitations: no limitations History of Present Illness Date Seen by Provider: Jan 12, 2018 Time Seen by Provider: 20:25 Initial Comments The patient presents to the ER by private conveyance with a chief complaint that about 25 minutes prior to arrival she went to the bathroom and urinated and saw a lot of blood in the stool. There were no clots. She's having no dysuria, nausea, fevers, chills. She says she's felt weak all day. She is on blood thinners. Plavix and Xarelto. She says this happened about 3 weeks ago and she was diagnosed with a UTI and put on Bactrim. She is denying any chest pain or shortness of breath presently. The patient denies that any of the blood is coming from her rectum. Prior Records: The patient was discharged December 25, [address] Norton after a admission for hematuria and UTI with Enterobacter and sent home on oral antibiotics. Her hemoglobin on discharge was 9.8 down from the month prior 11.6. She did not require any blood transfusions. Allergies and Home Medications Allergies Coded Allergies: No Known Drug Allergies (Unverified , 10/12/17) Home Medications Alprazolam 0.25 Mg Tablet, 0.125 MG PO HS, (Reported) TAKES 1/2 OF A (0.25 MG) TABLET Amiodarone HCl 200 Mg Tablet, 200 MG PO DAILY, (Reported) Amlodipine Besylate 5 Mg Tablet, 5 MG PO DAILY, (Reported) Atorvastatin Calcium 40 Mg Tablet, 40 MG PO HS, (Reported) Bisacodyl 5 Mg Tablet.dr, 10 MG PO DAILY, (Reported) TAKES 2 (5 MG) TABLETS Clopidogrel Bisulfate 75 Mg Tablet, 75 MG PO DAILY, (Reported) Famotidine 20 Mg Tablet, 20 MG PO BID, (Reported) Furosemide 20 Mg Tablet, 20 MG PO DAILY, (Reported) Furosemide 20 Mg Tablet, 20 MG PO DAILY PRN for SWELLING, (Reported) MAY TAKE AN ADDITIONAL DOSE IF NEEDED FOR SWELLING Losartan Potassium 100 Mg Tablet, 100 MG PO DAILY, (Reported) Magnesium Oxide 250 Mg Tablet, 250 MG PO BID, (Reported) Multivitamins-Min/FA/Ginkgo 1 Each Tablet, 1 TAB PO DAILY, (Reported) Pantoprazole Sodium 40 Mg Tablet.dr, 40 MG PO BID, (Reported) Paroxetine HCl 20 Mg Tablet, 20 MG PO DAILY, (Reported) Potassium Chloride 10 Meq Tablet.er, 2 TAB PO DAILY Prescribed by: MI NORTON on 12/24/17 1230 Primidone 50 Mg Tablet, 50 MG PO BID, (Reported) Propranolol HCl 60 Mg Cap.sa.24h, 60 MG PO DAILY, (Reported) Rivaroxaban 15 Mg Tablet, 15 MG PO 1700, (Reported) Sulfamethoxazole/Trimethoprim 1 Each Tablet, 1 EACH PO BID Prescribed by: MI NORTON on 12/24/17 1230 Patient Home Medication List Home Medication List Reviewed: Yes Review of Systems Constitutional: No chills, No diaphoresis, No fever, weakness EENTM: No ear pain, No eye pain Respiratory: No cough, No short of breath Cardiovascular: No chest pain, No edema Gastrointestinal: No abdominal pain, No constipation, No diarrhea, No nausea Genitourinary: denies discharge, denies dysuria, hematuria Skin: No pruritus, No rash Past [place]-Ptyjva-Erfmze Hx Patient Social History Alcohol Use: Denies Use Recreational Drug Use: No Smoking Status: Never a Smoker 2nd Hand Smoke Exposure: No Recent Foreign Travel: No Contact w/Someone Who Travel: No Recent Hopitalizations: Yes Immunizations Up To Date Tetanus Booster (TDap): Unknown PED Vaccines UTD: Yes Date of Pneumonia Vaccine: Sep 04, 2013 Date of Influenza Vaccine: Aug 28, 2017 Seasonal Allergies Seasonal Allergies: No Past Medical History Surgeries: Yes Cardiac, CABG, Eye Surgery, Hysterectomy, Orthopedic, Tonsillectomy, Vascular Surgery Respiratory: Yes Pneumonia Currently Using CPAP: No Currently Using BIPAP: No Cardiac: Yes (HEART STENTS X2) Atrial Fibrillation, Chronic Edema/Swelling, Coronary Artery Disease, Heart Murmur, High Cholesterol, Hypertension, Irregular Heartbeat, Peripheral Vascular , Valvular Heart Disease Neurological: Yes (TREMOR LEFT ARM) 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 Disorders: No 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 Disorders: Denies 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, 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 Sexually Transmitted Disease: No HIV/AIDS: No Genitourinary: Yes (RENAL ARTERY STENT; SOME INCONTINENCE) UTI-Chronic Gastrointestinal: Yes Gastroesophageal Reflux, Chronic Constipation Musculoskeletal: Yes Arthritis Endocrine: Yes (NON-COMPLIANT WITH MEDICATIONS AND NEVER CHECKS BLOOD GLUCOSE) Diabetes, Non-Insulin dep HEENT: Yes (S/P CATARACT SURGERY) Cataract Loss of Vision: Denies Hearing Impairment: Denies Cancer: No Psychosocial: Yes Anxiety Integumentary: No Blood Disorders: No Adverse Reaction/Blood Tranf: No Family Medical History Colon cancer 19 FATHER G8 BROTHER Completed stroke DAUGHTER Diabetes mellitus 19 FATHER Hypertension 19 MOTHER Myocardial infarction 19 MOTHER Heart Disease, Cancer, Diabetes, Hypertension Physical Exam Vital Signs Capillary Refill : General Appearance: WD/WN, no apparent distress HEENT: PERRL/EOMI, pharynx normal Neck: non-tender, normal inspection Cardiovascular: normal peripheral pulses, regular rate, rhythm Respiratory: chest non-tender, lungs clear, normal breath sounds, no respiratory distress, no accessory muscle use Gastrointestinal: normal bowel sounds, non tender, soft Genital/Rectal: normal rectal exam, blood at urethral meatus, other (blood clots at the vaginal and urethral os. 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 There are thin bloody secretions seen in the vaginal vault but there is no tumor, mass, clots, active bleeding seen on speculum exam.) Rectal: normal exam Back: normal inspection, no vertebral tenderness Neurologic/Psychiatric: alert, normal mood/affect, oriented x 3 Skin: normal color, warm/dry, No pallor Progress/Results/Core Measures Suspected Sepsis SIRS Temperature: Pulse: Respiratory Rate: Laboratory Tests 01/12/18 20:31: White Blood Count 8.4 Blood Pressure / Mean: Laboratory Tests 01/12/18 20:31: Creatinine 1.30, Platelet Count 298, Total Bilirubin 0.5 Results/Orders Lab Results Laboratory Tests Test 01/12/18 20:31 01/12/18 20:39 Range/Units White Blood Count 8.4 4.3-11.0 10^3/uL Red Blood Count 3.28 L 4.35-5.85 10^6/uL Hemoglobin 10.3 L 11.5-16.0 G/DL Hematocrit 31 L 35-52 % Mean Corpuscular Volume 95 80-99 FL Mean Corpuscular Hemoglobin 31 25-34 PG Mean Corpuscular Hemoglobin Concent 33 32-36 G/DL Red Cell Distribution Width 13.5 10.0-14.5 % Platelet Count 298 130-400 10^3/uL Mean Platelet Volume 10.1 7.4-10.4 FL Neutrophils (%) (Auto) 68 42-75 % Lymphocytes (%) (Auto) 22 12-44 % Monocytes (%) (Auto) 7 0-12 % Eosinophils (%) (Auto) 2 0-10 % Basophils (%) (Auto) 1 0-10 % Neutrophils # (Auto) 5.7 1.8-7.8 X 10^3 Lymphocytes # (Auto) 1.9 1.0-4.0 X 10^3 Monocytes # (Auto) 0.6 0.0-1.0 X 10^3 Eosinophils # (Auto) 0.2 0.0-0.3 10^3/uL Basophils # (Auto) 0.0 0.0-0.1 10^3/uL Sodium Level 131 L 135-145 MMOL/L Potassium Level 4.2 3.6-5.0 MMOL/L Chloride Level 98 98-107 MMOL/L Carbon Dioxide Level 21 21-32 MMOL/L Anion Gap 12 5-14 MMOL/L Blood Urea Nitrogen 21 H 7-18 MG/DL Creatinine 1.30 0.60-1.30 MG/DL Estimat Glomerular Filtration Rate 39 BUN/Creatinine Ratio 16 Glucose Level 150 H 70-105 MG/DL Calcium Level 8.9 8.5-10.1 MG/DL Total Bilirubin 0.5 0.1-1.0 MG/DL Aspartate Amino Transf (AST/SGOT) 34 5-34 U/L Alanine Aminotransferase (ALT/SGPT) 36 0-55 U/L Alkaline Phosphatase 56 40-136 U/L Total Protein 6.3 L 6.4-8.2 GM/DL Albumin 3.7 3.2-4.5 GM/DL Urine Color YELLOW Urine Clarity SLIGHTLY CLOUDY Urine pH 7 5-9 Urine Specific [place] 1.010 L 1.016-1.022 Urine Protein NEGATIVE NEGATIVE Urine Glucose (UA) NEGATIVE NEGATIVE Urine Ketones NEGATIVE NEGATIVE Urine Nitrite NEGATIVE NEGATIVE Urine Bilirubin NEGATIVE NEGATIVE Urine Urobilinogen NORMAL NORMAL MG/DL Urine Leukocyte Esterase 1+ H NEGATIVE Urine RBC (Auto) 5+ H NEGATIVE Urine RBC 50-100 H /HPF Urine WBC 2-5 /HPF Urine Crystals NONE /LPF Urine Bacteria FEW H /HPF Urine Casts NONE /LPF Urine Mucus NEGATIVE /LPF Urine Culture Indicated YES My Orders Orders - TRISH XIONG Cbc With Automated Diff (01/12/18 20:31) Comprehensive Metabolic Panel (01/12/18 20:31) Hs C Reactive Protein (01/12/18 20:31) Ua Culture If Indicated (01/12/18 20:31) Saline Lock/Iv-Start (01/12/18 20:31) Ns Iv 500 Ml (Sodium Chloride 0.9%) (01/12/18 20:31) Occult Blood Stool (01/12/18 20:40) Ceftriaxone Injection (Rocephin Injectio (01/12/18 21:15) Urine Culture (01/12/18 20:39) Acetaminophen Tablet (Tylenol Tablet) (01/12/18 21:15) Medications Given in ED Current Medications Medications Dose Ordered Sig/Mony Route Start Time Stop Time Status Last Admin Dose Admin Acetaminophen 1,000 mg ONCE ONCE PO 01/12/18 21:15 01/12/18 21:16 DC 01/12/18 21:25 1,000 MG Ceftriaxone Sodium 1000 mg/ Sodium Chloride 100 ml @ 200 mls/hr ONCE ONCE IV 01/12/18 21:15 01/12/18 21:44 01/12/18 21:24 200 MLS/HR Sodium Chloride 500 ml @ 0 mls/hr Q0M ONCE IV 01/12/18 20:31 01/12/18 20:32 DC 01/12/18 21:24 500 MLS/HR Vital Signs/I&O Capillary Refill : Progress Note #1: Time: 20:39 Progress Note We'll obtain CBC to check her hemoglobin and a CMP to check kidney function. We' ll obtain a urinalysis and do a fecal occult. She is a CT scan without contrast of her abdomen and pelvis for about 4 months ago that has no obvious genitourinary tumor seen. 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 There is nothing concerning about the old well-healed surgical scar seen at the back of the vaginal vault. Concern would be that she may have a urethral prolapse versus mass and would benefit from urological consult. The patient is on the Xarelto because she is has atrial fibrillation/ flutter with no history of an implanted heart valve. She is on the Plavix because she has had stents placed her most recent catheterization was 2 months ago November 30, 2017. Her hemoglobin is 10.3 which is improved from her discharge 3 weeks ago 9.8. Consults Consults : Consulting Physician: GENNY MILLER MD Consults Notes Discussed the case and he will see the patient if she will call his office for an appointment tomorrow morning. If he needs to do any kind of procedure he will then refer her back to the web press operator before taking her off any anticoagulants. Departure Impression Primary Impression: Hematuria Qualified Codes: R31.0 - Gross hematuria Additional Impression: Mass of urethra Disposition: HOME, SELF-CARE Condition: Stable Departure-Patient Inst. Decision time for Depature: 21:42 Referrals: MI NORTON DO (PCP/Family) Primary Care Physician Patient Instructions: Blood in the Urine (Hematuria), Adult (DC) Add. Discharge Instructions: Called Dr. Miller, urology at [phone] in the morning to request an appointment for follow-up of your blood in the urine. Return to the ER if you begin to experience chest pain, nausea or other worrisome symptoms. Continue your blood thinners as prescribed. Copy Copies To 1: MI NORTON DO Copies To 2: GENNY MILLER MD, TITUS J Jan 12, 2018 20:37
[2018-01-12 21:03] LABS: BASOPHILS % (AUTO) 1 % (0-10); EOSINOPHILS # (AUTO) 0.2 10^3/uL (0.0-0.3); EOSINOPHILS % (AUTO) 2 % (0-10); HEMATOCRIT 31 % (35-52); HEMOGLOBIN 10.3 G/DL (11.5-16.0); LYMPHOCYTES # (AUTO) 1.9 X 10^3 (1.0-4.0); LYMPHOCYTES % (AUTO) 22 % (12-44); MEAN CORPUSCULAR HEMOGLOBIN 31 PG (25-34); MEAN CORPUSCULAR HGB CONC 33 G/DL (32-36); MEAN CORPUSCULAR VOLUME 95 FL (80-99); MEAN PLATELET VOLUME 10.1 FL (7.4-10.4); MONOCYTES # (AUTO) 0.6 X 10^3 (0.0-1.0); MONOCYTES % (AUTO) 7 % (0-12); NEUTROPHILS # (AUTO) 5.7 X 10^3 (1.8-7.8); NEUTROPHILS % (AUTO) 68 % (42-75); PLATELET COUNT 298 10^3/uL (130-400); RED BLOOD COUNT 3.28 10^6/uL (4.35-5.85); RED CELL DISTRIBUTION WIDTH 13.5 % (10.0-14.5); WHITE BLOOD COUNT 8.4 10^3/uL (4.3-11.0)
[2018-01-12 21:03] LABS: BILIRUBIN,URINE NEGATIVE (NEGATIVE); CLARITY,URINE SLIGHTLY CLOUDY; COLOR,URINE YELLOW; GLUCOSE, URINE (UA) NEGATIVE (NEGATIVE); KETONES,URINE NEGATIVE (NEGATIVE); LEUKOCYTE ESTERASE ,URINE 1+ (NEGATIVE); NITRITE,URINE NEGATIVE (NEGATIVE); PH,URINE 7 (5-9); PROTEIN,URINE NEGATIVE (NEGATIVE); UROBILINOGEN,URINE NORMAL (NORMAL)
[2018-01-12 21:13] LABS: BACTERIA,URINE FEW /HPF; RBC,URINE 50-100 /HPF
[2018-01-12] MEDS ORDERED: cefTRIAXone INJECTION 1,000 MG in NS (IVPB) 100 ML IV ONE (21:15)
[2018-01-12] MEDS ORDERED: ACETAMINOPHEN 500 MG TAB (TYLENOL) PO ONE (21:15)
[2018-01-12 21:30] LABS: ALBUMIN 3.7 GM/DL (3.2-4.5); BILIRUBIN,TOTAL 0.5 MG/DL (0.1-1.0); CALCIUM 8.9 MG/DL (8.5-10.1); CREATININE SERUM 1.3 MG/DL (0.60-1.30); POTASSIUM 4.2 MMOL/L (3.6-5.0); TOTAL PROTEIN 6.3 GM/DL (6.4-8.2)
[2018-01-12 22:10] VITALS: BP 160/70
== END 2018-01-12 22:13 | disposition home or self-care (01) ==
LOC: EDUNIT# 20:23 → ER 20:24
DX: N36.8 Other specified disorders of urethra (principal); E11.9 Type 2 diabetes mellitus without complications; F41.9 Anxiety disorder, unspecified; K21.9 Gastro-esophageal reflux disease without esophagitis; K59.09 Other constipation; I48.91 Unspecified atrial fibrillation; I25.10 Atherosclerotic heart disease of native coronary artery without angina pectoris; E78.00 Pure hypercholesterolemia, unspecified; I10 Essential (primary) hypertension; R60.9 Edema, unspecified; I73.9 Peripheral vascular disease, unspecified; Z95.5 Presence of coronary angioplasty implant and graft; Z90.710 Acquired absence of both cervix and uterus; Z95.828 Presence of other vascular implants and grafts; Z90.89 Acquired absence of other organs; Z87.440 Personal history of urinary (tract) infections; Z79.01 Long term (current) use of anticoagulants; Z79.02 Long term (current) use of antithrombotics/antiplatelets; Z91.14 Patient's other noncompliance with medication regimen; Z82.49 Family history of ischemic heart disease and other diseases of the circulatory system
CPT/HCPCS: 36415; 80053; 81000; 85025; 86141; 87088; 96361; 96365

== ENCOUNTER → 2018-02-05 | Outpatient (CLI) | payer MEDICARE ==
--- NOTE | 2018-02-05 09:55 | Diagnostic Imaging Report ---
PROCEDURE: CT abdomen and pelvis without contrast. TECHNIQUE: Multiple contiguous axial images were obtained through the abdomen and pelvis without the use of intravenous contrast. INDICATION: Hematuria. Comparison is made with prior CT from 09/10/2017. The lung bases are clear. No discrete liver mass is identified apart from a small low-density in the dome, most suggestive of a cyst. There are multiple stones within the gallbladder. The pancreas and spleen are unremarkable. No adrenal masses detected. No definite renal calculi are seen. There is a vague cortical calcification in the upper pole of the left kidney, unchanged. Aorta is heavily calcified but nonaneurysmal. No free fluid in the abdomen or pelvis is seen. There is some moderate fluid and gaseous distention of the stomach. Small bowel loops do not appear to be appreciably dilated. There is moderate stool in the colon. No inflammatory process in the abdomen or pelvis is seen. The bladder is unremarkable. IMPRESSION: Essentially unremarkable noncontrast CT of the abdomen and pelvis. No definite urinary tract calculi or obstruction is seen. No acute feature is identified. Dictated by: Dictated on workstation # [id number]
== END ==
LOC: RAD 08:56
PROVIDERS: ATTEND Urology
DX: R31.0 Gross hematuria (principal)
CPT/HCPCS: 74176

== ENCOUNTER → 2018-03-22 | Outpatient (CLI) | payer MEDICARE ==
--- NOTE | 2018-03-22 13:13 | Diagnostic Imaging Report ---
INDICATION: Fall. Pain. COMPARISON: None. FINDINGS: Three views of the right knee are obtained. No acute fracture, malalignment or osseous destructive process is seen. There is tricompartmental moderate degenerative spurring. There is mild narrowing of the lateral joint space. There is chondrocalcinosis within the medial and lateral compartment suspected. Soft tissues are unremarkable. IMPRESSION: Tricompartmental degenerative changes and chondrocalcinosis. No acute fracture is suspected. Dictated by: Dictated on workstation # [id number]
--- NOTE | 2018-03-22 13:17 | Diagnostic Imaging Report ---
INDICATION: Ankle pain after fall. Three views were obtained FINDINGS: The alignment is normal. The plafonds and talar dome are intact. Ankle mortise is symmetric. There is some degenerative changes in the mid foot. There is soft tissue swelling laterally. IMPRESSION: Degenerative changes and soft tissue swelling laterally, however, no acute fracture or dislocation. Dictated by: Dictated on workstation # [id number]
== END ==
LOC: RAD 12:25
PROVIDERS: ATTEND Family Medicine
DX: M19.071 Primary osteoarthritis, right ankle and foot (principal); M17.11 Unilateral primary osteoarthritis, right knee; M11.261 Other chondrocalcinosis, right knee; W19.XXXA Unspecified fall, initial encounter
CPT/HCPCS: 73562; 73610

== ENCOUNTER → 2018-03-27 | Outpatient (CLI) | payer MEDICARE ==
[~2018-03-27] MED LIST changes: +GADOBUTROL 7.5 MMOL/7.5 ML (GADAVIST) VIAL IV ONE
[2018-03-27 08:27] LABS: CREATININE SERUM 1.15 MG/DL (0.60-1.30)
--- NOTE | 2018-03-27 09:42 | Diagnostic Imaging Report ---
PROCEDURE: MRI right joint lower extremity with and without contrast. TECHNIQUE: Multiplanar, multisequence pre and post contrast-enhanced LARRY of the right joint lower extremity was accomplished. INDICATION: Pain in the entire right ankle FINDINGS: There is no fracture, dislocation or other acute bony abnormality seen. No avascular necrosis is evident. There is a joint effusion present. No tendon or ligamentous pathology is seen. There is no soft tissue mass or abnormal fluid collection. IMPRESSION: There is a joint effusion. No other acute abnormality is seen. Dictated by: Dictated on workstation # [id number]
== END ==
LOC: RAD 07:36
PROVIDERS: ATTEND Nurse Practitioner Family
DX: M25.471 Effusion, right ankle (principal); M25.571 Pain in right ankle and joints of right foot
CPT/HCPCS: 36415; 73723; 82565; 84520

== ENCOUNTER 2018-04-12 17:30 | Emergency (ER) | payer MEDICARE ==
[~2018-04-12] VITALS: Ht 165.1 cm; Wt 61.7 kg
[~2018-04-12 17:30] MED LIST changes: -AMIO200T2 PO; +AMIO200T4 PO; -GADOBUTROL 7.5 MMOL/7.5 ML (GADAVIST) VIAL IV ONE
--- NOTE | 2018-04-12 17:41 | ED Chest Pain ---
General Chief Complaint: Chest Pain Stated Complaint: CHEST TIGHTNESS Source: patient, family (son) Exam Limitations: no limitations (TRISH XIONG) History of Present Illness Date Seen by Provider: Apr 12, 2018 Time Seen by Provider: 17:30 Initial Comments The patient presents to the ER with her son from [facility] with a chief complaint of chest tightness and substernal pain starting sometime today. She loosened her bra but that did not help. She does not feel short of breath more than usual. No cough fevers chills nausea or sweats or radiation of pain. She has known hernia inferior to the xiphoid process. She's had no problems with her bowels or bladder. She has a history of CABG. She's never a smoker. Patient says she had her Plavix and Xarelto discontinued and she does not take aspirin. She is known to Dr. Craig. She was started on Eliquis. She is on Eliquis, amiodarone, amlodipine, propranolol But no longer on Plavix. She uses Lasix. She thinks she is gaining some weight since moving into [facility] but she does not track it daily. (TRISH XIONG) Allergies and Home Medications Allergies Coded Allergies: No Known Drug Allergies (Unverified , 10/12/17) Home Medications Alprazolam 0.25 Mg Tablet, 0.125 MG PO HS, (Reported) TAKES 1/2 OF A (0.25 MG) TABLET Amiodarone HCl 200 Mg Tablet, 200 MG PO DAILY, (Reported) Amlodipine Besylate 5 Mg Tablet, 5 MG PO DAILY, (Reported) Atorvastatin Calcium 40 Mg Tablet, 40 MG PO HS, (Reported) Bisacodyl 5 Mg Tablet.dr, 10 MG PO DAILY, (Reported) TAKES 2 (5 MG) TABLETS Clopidogrel Bisulfate 75 Mg Tablet, 75 MG PO DAILY, (Reported) Famotidine 20 Mg Tablet, 20 MG PO BID, (Reported) Furosemide 20 Mg Tablet, 20 MG PO DAILY, (Reported) Furosemide 20 Mg Tablet, 20 MG PO DAILY PRN for SWELLING, (Reported) MAY TAKE AN ADDITIONAL DOSE IF NEEDED FOR SWELLING Losartan Potassium 100 Mg Tablet, 100 MG PO DAILY, (Reported) Magnesium Oxide 250 Mg Tablet, 250 MG PO BID, (Reported) Multivitamins-Min/FA/Ginkgo 1 Each Tablet, 1 TAB PO DAILY, (Reported) Pantoprazole Sodium 40 Mg Tablet.dr, 40 MG PO BID, (Reported) Paroxetine HCl 20 Mg Tablet, 20 MG PO DAILY, (Reported) Potassium Chloride 10 Meq Tablet.er, 2 TAB PO DAILY Prescribed by: MI NORTON on 12/24/17 1230 Primidone 50 Mg Tablet, 50 MG PO BID, (Reported) Propranolol HCl 60 Mg Cap.sa.24h, 60 MG PO DAILY, (Reported) Rivaroxaban 15 Mg Tablet, 15 MG PO 1700, (Reported) Sulfamethoxazole/Trimethoprim 1 Each Tablet, 1 EACH PO BID Prescribed by: MI NORTON on 12/24/17 1230 Patient Home Medication List Home Medication List Reviewed: Yes (TRISH XIONG) Review of Systems Constitutional: No chills, No diaphoresis EENTM: No Blurred Vision, No Double Vision Respiratory: Denies Cough, Denies Shortness of Air Cardiovascular: See HPI, Chest Pain, Edema; Denies Irregular Heart Rate; Lightheadedness; Denies Palpitations, Denies Syncope Gastrointestinal: Denies Abdomen Distended, Denies Abdominal Pain, Denies Constipated, Denies Diarrhea Genitourinary: Denies Burning, Denies Discharge Musculoskeletal: No back pain, No gout Skin: No dryness, No pruritus, No rash (TRISH XIONG) Past Llgdjji-Xjfaxz-Qjwfuo Hx Patient Social History Alcohol Use: Denies Use Recreational Drug Use: No Smoking Status: Never a Smoker 2nd Hand Smoke Exposure: No Recent Hopitalizations: Yes (TRISH XIONG) Immunizations Up To Date Tetanus Booster (TDap): Unknown PED Vaccines UTD: Yes Date of Pneumonia Vaccine: Sep 04, 2013 Date of Influenza Vaccine: Aug 28, 2017 (TRISH XIONG) Seasonal Allergies Seasonal Allergies: No (TRISH XIONG) Past Medical History Surgeries: Yes Cardiac, CABG, Eye Surgery, Hysterectomy, Orthopedic, Tonsillectomy, Vascular Surgery Respiratory: Yes Pneumonia Currently Using CPAP: No Currently Using BIPAP: No Cardiac: Yes (HEART STENTS X2) Atrial Fibrillation, Chronic Edema/Swelling, Coronary Artery Disease, Heart Murmur, High Cholesterol, Hypertension, Irregular Heartbeat, Peripheral Vascular , Valvular Heart Disease Neurological: Yes (TREMOR LEFT ARM) 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 Disorders: No 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, 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 Sexually Transmitted Disease: No HIV/AIDS: No Genitourinary: Yes (RENAL ARTERY STENT; SOME INCONTINENCE) UTI-Chronic Gastrointestinal: Yes Gastroesophageal Reflux, Chronic Constipation Musculoskeletal: Yes Arthritis Endocrine: Yes (NON-COMPLIANT WITH MEDICATIONS AND NEVER CHECKS BLOOD GLUCOSE) Diabetes, Non-Insulin dep HEENT: Yes (S/P CATARACT SURGERY) Cataract Loss of Vision: Denies Hearing Impairment: Denies Cancer: No Psychosocial: Yes Anxiety Integumentary: No Blood Disorders: No Adverse Reaction/Blood Tranf: No (TRISH XIONG) Family Medical History Colon cancer 19 FATHER G8 BROTHER Completed stroke DAUGHTER Diabetes mellitus 19 FATHER Hypertension 19 MOTHER Myocardial infarction 19 MOTHER Heart Disease, Cancer, Diabetes, Hypertension (TRISH XIONG) Physical Exam Vital Signs Vital Signs - First Documented 04/12/18 17:36 Temp 97.2 Pulse 75 Resp 16 B/P (MAP) 138/88 (105) Pulse Ox 98 O2 Delivery Room Air (MARILEE CLEMONS MD) Vital Signs Capillary Refill : (TRISH XIONG) Height, Weight, BMI Height: 5', 6.00" Weight: 138lbs 8.0oz, [id number] Method:Stated ,23.1BMI General Appearance: WD/WN, Anxious, Mild Distress HEENT: PERRL/EOMI, Pharynx Normal, Moist Mucous Membranes Neck: Full Range of Motion, Normal Inspection Respiratory: Chest Non Tender, Lungs Clear, Normal Breath Sounds, No Accessory Muscle Use, No Respiratory Distress Cardiovascular: Regular Rate, Rhythm, No Edema, Normal Peripheral Pulses Gastrointestinal: Normal Bowel Sounds, Non Tender, Soft Extremity: Normal Capillary Refill, No Calf Tenderness, Pedal Edema (trace wearing compression stockings) Neurologic/Psychiatric: Alert, Oriented x3, No Motor/Sensory Deficits Skin: Normal Color, Warm/Dry (TRISH XIONG) Progress/Results/Core Measures Results/Orders Lab Results Laboratory Tests Test 04/12/18 17:40 04/12/18 19:37 Range/Units White Blood Count 7.1 4.3-11.0 10^3/uL Red Blood Count 3.54 L 4.35-5.85 10^6/uL Hemoglobin 10.6 L 11.5-16.0 G/DL Hematocrit 32 L 35-52 % Mean Corpuscular Volume 90 80-99 FL Mean Corpuscular Hemoglobin 30 25-34 PG Mean Corpuscular Hemoglobin Concent 33 32-36 G/DL Red Cell Distribution Width 14.3 10.0-14.5 % Platelet Count 249 130-400 10^3/uL Mean Platelet Volume 10.9 H 7.4-10.4 FL Neutrophils (%) (Auto) 72 42-75 % Lymphocytes (%) (Auto) 18 12-44 % Monocytes (%) (Auto) 9 0-12 % Eosinophils (%) (Auto) 1 0-10 % Basophils (%) (Auto) 0 0-10 % Neutrophils # (Auto) 5.1 1.8-7.8 X 10^3 Lymphocytes # (Auto) 1.3 1.0-4.0 X 10^3 Monocytes # (Auto) 0.6 0.0-1.0 X 10^3 Eosinophils # (Auto) 0.1 0.0-0.3 10^3/uL Basophils # (Auto) 0.0 0.0-0.1 10^3/uL Prothrombin Time 18.5 H 12.2-14.7 SEC INR Comment 1.5 H 0.8-1.4 Activated Partial Thromboplast Time 34 24-35 SEC Sodium Level 129 L 135-145 MMOL/L Potassium Level 4.2 3.6-5.0 MMOL/L Chloride Level 96 L 98-107 MMOL/L Carbon Dioxide Level 20 L 21-32 MMOL/L Anion Gap 13 5-14 MMOL/L Blood Urea Nitrogen 16 7-18 MG/DL Creatinine 1.54 H 0.60-1.30 MG/DL Estimat Glomerular Filtration Rate 32 BUN/Creatinine Ratio 10 Glucose Level 193 H 70-105 MG/DL Calcium Level 9.4 8.5-10.1 MG/DL Magnesium Level 2.0 1.8-2.4 MG/DL Total Bilirubin 0.7 0.1-1.0 MG/DL Aspartate Amino Transf (AST/SGOT) 77 H 5-34 U/L Alanine Aminotransferase (ALT/SGPT) 91 H 0-55 U/L Alkaline Phosphatase 141 H 40-136 U/L Myoglobin 80.5 10.0-92.0 NG/ML Troponin I < 0.30 < 0.30 <0.30 NG/ML B-Type Natriuretic Peptide 1064.0 H <100.0 PG/ML Total Protein 7.0 6.4-8.2 GM/DL Albumin 3.9 3.2-4.5 GM/DL Lipase 40 8-78 U/L (MARILEE CLEMONS MD) My Orders Orders - MARILEE CLEMONS MD Furosemide Injection (Lasix Injection) (04/12/18 18:38) Troponin I (04/12/18 19:31) Ekg Tracing (04/12/18 19:31) (MARILEE CLEMONS MD) Medications Given in ED Current Medications Medications Dose Ordered Sig/Mony Route Start Time Stop Time Status Last Admin Dose Admin Aspirin 324 mg ONCE ONCE PO 04/12/18 17:45 04/12/18 17:46 DC 04/12/18 17:55 324 MG Nitroglycerin 0.4 mg UD PRN SL 04/12/18 17:45 04/12/18 18:07 0.4 MG (MARILEE CLEMONS MD) Vital Signs/I&O 04/12/18 04/12/18 17:36 20:18 Temp 97.2 Pulse 75 72 Resp 16 14 B/P (MAP) 138/88 (105) 148/89 Pulse Ox 98 98 O2 Delivery Room Air Room Air (MARILEE CLEMONS MD) Progress Progress Note : Time: 17:40 Progress Note Regular some aspirin and nitroglycerin. Her oxygen sats are 100% on room air. She is not tachycardic. She has known history of coronary disease now presenting with chest pressure so cardiogenic sources is the most concerning cause. Heart catheter by Dr. Craig from November 2017: 1. Patent stent in the proximal and mid right coronary artery with moderate disease distally 2. 60 percent stenosis in the circumflex artery, angiographically appeared to be significant but FFR at baseline was 0.96 and after Adenosine was 0.92 3. Occluded vein graft to the right coronary artery, diagonal artery and obtuse marginal branches, known to be occluded 4. Severe stenosis at the ostial right coronary artery that is heavily calcified resistant lesion, couplets intervention with multiple balloons and high pressure inflation then deployment of HERCULINK stent 6x15 with excellent results, gradient that started at 100 mmHg has improved significantly after the procedure 5. Normal left ventricular end-diastolic pressure Left bundle branch block was seen on the EKG October 2017. Echo from September 2017 Dr. Craig: Normal left ventricular size and wall thickness. Ejection fraction 25-30%. Grade 2 diastolic dysfunction. Moderate to severe mitral valve regurgitation. Mild stenosis and aortic valve. Moderate to severe tricuspid valve regurgitation. Estimated pulmonary artery pressure 50 mmHg. (TRISH XIONG) Progress Note : Progress Note 0: Seen care the patient pending labs. 0: I have reevaluated the patient. She reports that she has had chest pain since this morning and has a vague description of that and it is gone completely now. Has had some shortness of breath with activity. She thinks that she has been gaining some weight notes that she has some extra fluid on her legs. She is on Lasix daily but is not sure of the dose. She does stay at the [facility]. Patient does have extensive cardiac history as previously noted. On repeat exam, patient has lungs are clear to auscultation bilateral. Heart is regular in rate and rhythm. O2 sat is 96 percent on room air. She does have bilateral lower extremity edema above her stockings. 1833: I discussed the case with Dr. Norton. We had noted elevated BNP but not pulmonary edema. Patient has laboratory findings of volume overload. We will give Lasix 40 mg IV and repeat troponin at the two-hour glen. If troponin is negative, we will discharge her home with increasing her Lasix to 40 mg daily for the next few days until she can be seen by Dr. Norton. Dr. Norton will see her in the office later this week. This was discussed with the patient and family who agree with the plan. Monitor patient. 2009: Repeat troponin and EKG do not show any significant changes. Patient is doing much better. She has not had much urine output after the Lasix yet but I do believe that we'll probably work. We will continue the plan as discussed above. Discharged home with return precautions. Patient and family verbalize understanding instructions and agreement with plan. (MARILEE CLEMONS MD) Initial ECG Impression Date: Apr 12, 2018 Initial ECG Impression Time: 17:34 Initial ECG Rate: 74 Initial ECG Intervals: QT (502) Initial ECG Impression: Nonspecific Changes Initial ECG Comparisson: Unchanged Comment Left bundle branch block and sorted junctional rhythm. No appreciable ST elevation or depression. (TRISH XIONG) EKG : EKG Time: 19:31 Rate: 72 Comment Accelerated junctional rhythm with left bundle. Left [place] deviation. No evidence of ST elevation GA. Unchanged from previous done earlier today. Interpreted by me. (MARILEE CLEMONS MD) Diagnostic Imaging Diagonstic Imaging: Xray Plain Films/CT/US/NM/MRI: chest (1v) Comments Stable chest x-ray compared to prior. No acute cardiopulmonary process noted. History of thoracotomy and CABG noted. Reviewed: Reviewed by Me (TRISH XIONG) Comments VIA [facility]. [place], [place] NAME: [facility] REC#: [id number] PT STATUS: REG ER : 1935 PHYSICIAN: TRISH XIONG MD ADMIT DATE: 04/12/18/ER Draft Date of Exam:04/12/18 CHEST 1 VIEW, AP/PA ONLY EXAMINATION: Chest radiograph, portable AP view. DATE: April 12, 2018 at 1752 hours. INDICATION: 83-year-old female, chest tightness. COMPARISON: November 30, 2017. FINDINGS: There are median sternotomy wires. Heart size and mediastinal contours are unchanged. There is no identified pneumothorax. There is no large pleural effusion. There are right paramediastinal opacities which appear similar dating back to April 22, 2017. There is no correlate mass on CT chest of April 22, 2017. There is no interval focal airspace consolidation on current exam. IMPRESSION: No identified interval acute cardiopulmonary abnormality. Dictated on workstation # [id number] Dict: 04/12/18 1757 Trans: 04/12/[address] [facility] [id number] Interpreted by: FRANKIE FONTENOT MD Electronically signed by: (MARILEE CLEMONS MD) Departure Impression Primary Impression: Chest pain Qualified Codes: R07.9 - Chest pain, unspecified Additional Impression: Volume overload Qualified Codes: E87.70 - Fluid overload, unspecified Disposition: 01 HOME, SELF-CARE Condition: Stable Departure-Patient Inst. Decision time for Depature: 20:19 (MARILEE CLEMONS MD) Referrals: MI NORTON DO (PCP/Family) Primary Care Physician Patient Instructions: Chest Pain (DC), Dependent Edema (DC), Heart Failure, Adult (DC) Add. Discharge Instructions: All discharge instructions reviewed with patient and/or family. Voiced understanding. Take medications as directed. You should increase her Lasix to 40 mg daily for 4 days and then resume previous prescription. Call in the morning for follow- up appointment with Dr. Norton this week. Return for worse pain, fever, vomiting, weakness, breathing problems or other concerns as needed. Copy Copies To 1: MI NORTON TITUS J Apr 12, 2018 17:41 MARILEE CLEMONS MD Apr 12, 2018 19:05
[2018-04-12] MEDS ORDERED: ASPIRIN 81 MG CHEW (CHILDREN'S ASA) PO ONE (17:45)
[2018-04-12 17:46] LABS: BASOPHILS % (AUTO) 0 % (0-10); EOSINOPHILS # (AUTO) 0.1 10^3/uL (0.0-0.3); EOSINOPHILS % (AUTO) 1 % (0-10); HEMATOCRIT 32 % (35-52); HEMOGLOBIN 10.6 G/DL (11.5-16.0); LYMPHOCYTES # (AUTO) 1.3 X 10^3 (1.0-4.0); LYMPHOCYTES % (AUTO) 18 % (12-44); MEAN CORPUSCULAR HEMOGLOBIN 30 PG (25-34); MEAN CORPUSCULAR HGB CONC 33 G/DL (32-36); MEAN CORPUSCULAR VOLUME 90 FL (80-99); MEAN PLATELET VOLUME 10.9 FL (7.4-10.4); MONOCYTES # (AUTO) 0.6 X 10^3 (0.0-1.0); MONOCYTES % (AUTO) 9 % (0-12); NEUTROPHILS # (AUTO) 5.1 X 10^3 (1.8-7.8); NEUTROPHILS % (AUTO) 72 % (42-75); PLATELET COUNT 249 10^3/uL (130-400); RED BLOOD COUNT 3.54 10^6/uL (4.35-5.85); RED CELL DISTRIBUTION WIDTH 14.3 % (10.0-14.5); WHITE BLOOD COUNT 7.1 10^3/uL (4.3-11.0)
[2018-04-12 17:57] LABS: INR 1.5 (0.8-1.4); PROTHROMBIN TIME PATIENT 18.5 SEC (12.2-14.7)
[2018-04-12] MEDS: NITROGLYCERIN 0.4 MG SL TABS BTL 25'S SL PRN ×2 (17:57→18:07)
--- NOTE | 2018-04-12 18:02 | Diagnostic Imaging Report ---
EXAMINATION: Chest radiograph, portable AP view. DATE: April 12, 2018 at 1752 hours. INDICATION: 83-year-old female, chest tightness. COMPARISON: November 30, 2017. FINDINGS: There are median sternotomy wires. Heart size and mediastinal contours are unchanged. There is no identified pneumothorax. There is no large pleural effusion. There are right paramediastinal opacities which appear similar dating back to April 22, 2017. There is no correlate mass on CT chest of April 22, 2017. There is no interval focal airspace consolidation on current exam. IMPRESSION: No identified interval acute cardiopulmonary abnormality. Dictated by: Dictated on workstation # [id number]
[2018-04-12 18:03] LABS: ALANINE AMINOTRANSFERASE 91 U/L (0-55); ALBUMIN 3.9 GM/DL (3.2-4.5); ALKALINE PHOSPHATASE 141 U/L (40-136); BILIRUBIN,TOTAL 0.7 MG/DL (0.1-1.0); BUN/CREATININE RATIO 10; CALCIUM 9.4 MG/DL (8.5-10.1); CARBON DIOXIDE 20 MMOL/L (21-32); CHLORIDE 96 MMOL/L (98-107); CREATININE SERUM 1.54 MG/DL (0.60-1.30); GFR ESTIMATED 32; GLUCOSE 193 MG/DL (70-105); LIPASE 40 U/L (8-78); POTASSIUM 4.2 MMOL/L (3.6-5.0); SODIUM 129 MMOL/L (135-145)
[2018-04-12 18:10] LABS: MYOGLOBIN SERUM 80.5 NG/ML (10.0-92.0)
[2018-04-12] MEDS ORDERED: FUROSEMIDE 40 MG/4 ML INJ (LASIX) IV STA (18:38)
[2018-04-12 20:18] VITALS: BP 148/89
== END 2018-04-12 20:29 | disposition home or self-care (01) ==
LOC: EDUNIT# 17:30 → ER 17:31
DX: R07.89 Other chest pain (principal); E87.70 Fluid overload, unspecified; I48.91 Unspecified atrial fibrillation; I25.10 Atherosclerotic heart disease of native coronary artery without angina pectoris; E78.00 Pure hypercholesterolemia, unspecified; I10 Essential (primary) hypertension; K21.9 Gastro-esophageal reflux disease without esophagitis; K59.09 Other constipation; E11.9 Type 2 diabetes mellitus without complications; F41.9 Anxiety disorder, unspecified; Z90.710 Acquired absence of both cervix and uterus; Z90.89 Acquired absence of other organs; Z91.14 Patient's other noncompliance with medication regimen
CPT/HCPCS: 36415; 71045; 80053; 83690; 83735; 83874; 83880; 84484; 85025; 85610; 85730; 93005; 93041; 96374

== ENCOUNTER → 2018-04-19 | Outpatient (CLI) | payer MEDICARE | LOC: PREOP 10:09 | PROVIDERS: ATTEND Urology | DX: Z01.818 Encounter for other preprocedural examination (principal); N36.9 Urethral disorder, unspecified ==